=== PATIENT | female | born 1950 | race Caucasian/White ===

== ENCOUNTER 2019-08-20 11:21 | Outpatient (CLI) | payer MEDICARE, OTHER, SELFPAY ==
[2019-08-20 12:00] LABS: Basophils % 0.6 %; Eosinophils # 0.1 10^3/uL (0.0-0.8); Eosinophils % 1.9 %; Hematocrit 39.8 % (37.0-47.0); Lymphocytes # 1.8 10^3/uL (0.8-4.8); Lymphocytes % 28.3 %; Mean Corpuscular HGB Conc 32.7 g/dL (30.0-36.0); Mean Corpuscular Hemoglobin 31.9 pg (28.0-34.0); Mean Corpuscular Volume 97.5 fL (81-99); Mean Platelet Volume 10.3 fL (7.4-10.4); Monocytes # 0.6 10^3/uL (0.2-0.9); Neutrophils # 3.8 10^3/uL (1.8-7.7); Nucleated Red Blood Cells % 0 %; Platelet Count 129 10^3/cmm (130-400); Red Blood Count 4.08 10^6/uL (4.1-5.3); Red Cell Distribution Width 13.7 % (12.1-15.1); White Blood Count 6.4 10^3/uL (4.0-10.0)
[2019-08-20 12:19] LABS: Alanine Aminotransferase 55 U/L (0-33); Albumin Level 3.8 g/dL (3.5-5.2); Alkaline Phosphatase 126 IU/L (35-105); Anion Gap 16.3 (5-19); Aspartate Amino Transferase 71 U/L (0-32); Blood Urea Nitrogen 13 mg/dL (8-23); Calcium 9.7 mg/dL (8.5-10.5); Carbon Dioxide 26 mmol/L (22-29); Chloride 99 mmol/L (98-107); Glucose 90 mg/dL (65-115); Osmolality Calculated 282 mOsm/kg (285-295); Potassium 3.3 mmol/L (3.5-5.1); Sodium 138 mmol/L (136-145); Total Bilirubin 0.5 mg/dL (0.15-1.2); Total Protein 7.8 g/dL (6.6-8.7)
--- NOTE | 2019-08-24 09:53 | ONC FU_ITS ---
Dr. Correia Patient Follow-Up Note Patient: Erin Dickens Unit #: [id number]: [id number] Dicatated By: Yong Correia M.D.Date of Visit:Aug 20, 2019 Onc Med Follow-up/Prog Note Chief Complaint: Breast cancer. History of Present Illness: This is a 69 year-old woman with grade 3 invasive ductal carcinoma of the left breast, stage IIA (T1c, pN1c, M0), ER negative, weakly ID positive, and HER-2/edward negative. She had presented with a lump in the left breast. Mammogram and ultrasound were done and showed a suspicious lesion in the upper outer quadrant. She was then referred to Dr. Weathers. She underwent left breast lumpectomy on 09/08/2015. Pathology showed grade 3 invasive ductal carcinoma with extensive intraductal component, high grade. The tumor measured 1.6 cm in greatest dimension. There was invasive carcinoma within 1-2 mm of the inked margin and in situ carcinoma within 0.5 mm of the inked margin. The tumor was ER negative at less than 1% and weakly ID positive at 5%. It was negative for overexpression of HER-2/edward, 0 by IHC with amplification ratio 1.3 by FISH, with 3.7 HER-2 copies per cell. The Ki-67 was unfavorable at 44%. She underwent left modified radical mastectomy on 09/25/2015. Pathology on the mastectomy showed extensive biopsy site changes, but no residual in situ or invasive malignancy. There was metastatic involvement in 3 of 18 axillary lymph nodes. She has had an uneventful postop recovery. I had seen her initially on 10/16/2015, and I did recommend adjuvant chemotherapy with dose dense Adriamycin/cyclophosphamide followed by weekly Taxol. She began her first cycle of adriamycin/Cytoxan with Neulasta support on 10-22-2015. She completed 4 cycles as of 12/03/2015. That portion of her treatment was complicated by neutropenia, but with uneventful recovery. She also experienced some increase in her serum creatinine. At the time of her 4th cycle, it had increased to 1.3 mg/dL compared to baseline of 0.8 mg/dL. As of 12/17/2015 it had increased to 1.7 mg/dL, and despite additional IV hydration, by 12/24/2015 it had increased to 2.4 mg/d. However, with further IV hydration, her renal function did show improvement, and she then began weekly paclitaxel on 12/31/2015. As of 02/15/2016, she had completed her 6th weekly paclitaxel infusion. Following that treatment, her chemotherapy was put on hold due to multiple toxicities, including nausea, diarrhea and neuropathy. She was then followed on observation/expectant management. Her other medical illnesses include hypertension, hyperlipidemia, and type II diabetes. She has some associated neuropathy. She is known to have a heart murmur, but no other heart disease. She is a non-smoker. INTERIM HISTORY: On her follow-up visit in May 2016 her liver enzymes had increased significantly. Staging CT scans of the chest, abdomen, and pelvis on 05/31/2016 showed no evidence of metastatic disease. She continued on observation/expectant management. At her follow-up visit in August 2018 she had developed stigmata of liver cirrhosis and a repeat CT abdomen/pelvis at that time that showed mild hepatosplenomegaly with diffuse fatty infiltration of the liver and with a slightly cirrhotic contour of the liver, which appeared new since 2016. With those findings, she was referred to a administration clerk, Dr. Jovon Hinson in [place]. She continued observation/expectant management for the breast cancer. She is seen for a follow-up visit. She has been feeling okay. Her energy level is somewhat variable. She is able to do light work. ECOG score is 1. She says that for a long time she had no appetite, and her weight dropped 15 pounds. For the past week or so it has been better, though. She does not have fever, night sweats, or hot flashes. She has some allergy related sinus drainage and cough. She has no shortness of breath or chest pain. She clearly has no GI complaints. She sometimes has difficulty voiding. She reports having bone pain in her arms and the legs. She also still has some numbness in her legs. Medications: Aleve 1 (220 mg) Capsule Oral PRN, AmLODIPine Besylate 1 Tablet (of 10 mg) Oral daily, Aspirin 1 Tablet (of 81 mg) Tablet, chewable Oral daily, Calcium 1 Tablet (of 600 mg) Oral b.i.d., Cholecalciferol 1 Tablet (of 58352 Units) Oral q 1 week, Januvia 1 (50 mg) Tablet Oral daily, Klor-Con M20 1 Tablet (of 20 mg) Tablet, controlled release Oral b.i.d., Omeprazole 1 Tablet (of 20 meq) Capsule Delayed Release Oral daily PRN, Singulair 1 Tablet (of 10 mg) Oral daily, Triamterene-HCTZ 1 Tablet (of 37.5-25 mg) Oral daily Allergies: No Known Allergies. Review of Systems: Constitutional - She is generally feeling okay. Her energy comes and goes. She is doing some light house work and babysitting [employer]. Her appetite has improved, it was very poor. Her weight is down 15 pounds from her last visit. No fever, night sweats, or hot flashes. ECOG score is 1, ENMT - She has seasonal allergies. No mouth sores. No sore throat or difficulty swallowing, Hematologic/Lymphatic - She bruises easily, Respiratory - No shortness of breath. She has an occasional cough related to post nasal drainage. No pleuritic pain or hemoptysis, Cardiovascular - No angina pain. No palpitations, Gastrointestinal - No nausea or vomiting. No heartburn or acid reflux. No diarrhea or constipation. No blood in the stool or black stools, Genitourinary (F) - No dysuria or hematuria. No urinary frequency. No urgency or incontinence, Musculoskeletal - She is having bone pain in her legs and arms, Integumentary - No skin complications,, Neurologic - No headache or dizziness. She has numbness in her legs. No tingling. No other focal neurologic symptoms, Psychiatric - No anxiety or depression. She has some difficult sleeping. . Vital Signs: Performed on Aug 20, 2019 12:59 Height - 58.00 in Weight - 124.4 lbs (LOW) BSA - 1.49 sq.m BMI - 26.00 Temperature - 98.6 F Pulse - 66 /min Respiration - 18 /min BP - 120/57 mm(hg) O2 Sat - 98 % Pain - 0 Physical Examination: Constitutional - She looks pretty good generally, Eyes - Sclerae nonicteric. Conjunctivae clear, ENMT - No lesions noted in the oral cavity, Hematologic/Lymphatic - No cervical or clavicular adenopathy, Respiratory - Lungs are clear, Cardiovascular - Heart rhythm is regular. There is a II/ systolic murmur. There is no gallop or rub noted, Breasts - There is tenderness in the right breast. Multiple tiny nodules are palpable, but these do not appear clinically significant. The left chest wall shows no lesions. There is no axillary adenopathy, Abdomen - Soft. Liver is enlarged. The spleen tip is palpable on inspiration just below the costal margin. There is no abdominal mass or ascites noted and there is no inguinal adenopathy, Extremities - No edema. Pedal pulses are palpable bilaterally, Integumentary - There are scattered spider angiomas on the upper chest wall. There is a small actinic lesion on her nose. There is a focal area of discoloration on the posterior aspect of the right leg, Neurologic - No focal neurologic deficits noted. Lab/Imaging: Test performed on Aug 20, 2019 11:35 Sodium 138 mmol/L Potassium 3.3 mmol/L Chloride 99 mmol/L CO2 26 mmol/L Anion Gap 16.3 BUN 13 mg/dL Creatinine 0.9 mg/dL Cr Clearance (Est) 51.07 mL/min Glucose 90 mg/dL Calcium 9.7 mg/dL Protein, Total 7.8 g/dL Albumin 3.8 g/dL Globulin 4.0 g/dL Bilirubin, Total 0.5 mg/dL ALT (SGPT) 55 U/L AST (SGOT) 71 U/L Alkaline Phosphatase 126 IU/L WBC 6.4 10 3/uL RBC 4.08 10 6/uL HGB 13.0 g/dL HCT 39.8 % MCV 97.5 fL MCH 31.9 pg MCHC 32.7 g/dL RDW 13.7 % Platelet Count 129 10 3/cmm MPV 10.3 fL Neutrophils 3.8 10 3/uL Lymphocytes 1.8 10 3/uL Monocytes 0.6 10 3/uL Eosinophils 0.1 10 3/uL Basophils 0.0 10 3/uL Neutrophil % 59.0 % Lymphocyte % 28.3 % Monocyte % 10.0 % Eosinophil % 1.9 % Basophils % 0.6 % NRBC % 0 % Impression: 1. Patient with grade 3 invasive ductal carcinoma of the left breast, stage IIA (pT1c, pN1c, M0), ER negative, weakly ID positive, and HER-2/edward negative. 2. She initially underwent left breast lumpectomy followed by left modified radical mastectomy on 09/25/2015. Her other medical illnesses include: 3. Hypertension. 4. Hyperlipidemia. 5. Type II diabetes with neuropathy. 6. GERD. 7. She has a history of mild asthma. 8. She is known to have a heart murmur. She was given adjuvant chemotherapy with Adriamycin/cyclophosphamide followed by paclitaxel. She completed 4 cycles of Adriamycin/cyclophosphamide from 10/22/2015 through 12/03/2015. The paclitaxel portion of her chemotherapy was delayed due to a decline in renal function, but that subsequently did improve. She was able to complete 6 weekly infusions of paclitaxel from 12/31/2015 through 02/15/2016. Her treatment was stopped at that point due to multiple toxicities including nausea, diarrhea, and neuropathy. On her follow-up visit in May 2016, there was a significant increase in her liver enzymes. Her restaging CT scans of the chest, abdomen, and pelvis showed no evidence of metastatic disease. She was then followed on observation/expectant management. During subsequent follow-up her liver enzymes had remained mildly elevated. At her follow-up visit in August 2018 she appeared to have developed stigmata of liver cirrhosis. A subsequent CT abdomen/pelvis showed evidence of mild hepatosplenomegaly with diffuse fatty infiltration of the liver and a slightly cirrhotic contour to the liver, which appear new from the prior study in 2017. With those findings, I was referred to a team assembly line machine operator, Dr. Jovon Hinson in [place]. Since then she has continued to have somewhat marginal performance status. She also has continued to have neuropathy in her lower extremities. There is been no evidence, though, of recurrence of the breast cancer. Plan: She remains on observation/expectant management for the breast cancer. I will see her again in 6 months. Signed By: Yong Correia M.D. <<Signature on File>>
== END 2019-08-20 11:22 | disposition home or self-care (01) ==
LOC: ONCMED 11:28
PROVIDERS: PCP Student in an Organized Health Care Education/Training Program; Visit Provider Internal Medicine Medical Oncology
DX: Z08 Encounter for follow-up examination after completed treatment for malignant neoplasm (principal); Z85.3 Personal history of malignant neoplasm of breast; I10 Essential (primary) hypertension; E78.5 Hyperlipidemia, unspecified; E11.42 Type 2 diabetes mellitus with diabetic polyneuropathy; K21.9 Gastro-esophageal reflux disease without esophagitis; J45.909 Unspecified asthma, uncomplicated; R01.1 Cardiac murmur, unspecified; Z90.12 Acquired absence of left breast and nipple; Z92.21 Personal history of antineoplastic chemotherapy; Z79.899 Other long term (current) drug therapy
CPT/HCPCS: 80053; 85025; G0463

== ENCOUNTER 2020-02-19 11:48 | Outpatient (CLI) | payer MEDICARE, OTHER, SELFPAY ==
[2020-02-19 12:18] LABS: Basophils % 0.7 %; Eosinophils # 0.1 10^3/uL (0.0-0.8); Eosinophils % 1.8 %; Hematocrit 39.5 % (37.0-47.0); Hemoglobin 13.5 g/dL (11.5-15.3); Lymphocytes # 1.8 10^3/uL (0.8-4.8); Lymphocytes % 30.1 %; Mean Corpuscular HGB Conc 34.2 g/dL (30.0-36.0); Mean Corpuscular Volume 90.6 fL (81-99); Mean Platelet Volume 10.2 fL (7.4-10.4); Monocytes # 0.7 10^3/uL (0.2-0.9); Monocytes % 10.7 %; Neutrophils # 3.42 10^3/uL (1.8-7.7); Neutrophils % 56.5 %; Nucleated Red Blood Cells % 0 %; Platelet Count 134 10^3/cmm (130-400); Red Blood Count 4.36 10^6/uL (4.1-5.3); Red Cell Distribution Width 13.5 % (12.1-15.1); White Blood Count 6.1 10^3/uL (4.0-10.0)
[2020-02-19 12:48] LABS: Alanine Aminotransferase 42 U/L (0-33); Alkaline Phosphatase 155 IU/L (35-105); Anion Gap 14.4 (5-19); Aspartate Amino Transferase 55 U/L (0-32); Blood Urea Nitrogen 13 mg/dL (8-23); Carbon Dioxide 23 mmol/L (22-29); Chloride 104 mmol/L (98-107); Globulin 3.5 g/dL (1.3-4.6); Glucose 112 mg/dL (65-115); Osmolality Calculated 287 mOsm/kg (285-295); Potassium 3.4 mmol/L (3.5-5.1); Sodium 138 mmol/L (136-145); Total Bilirubin 0.5 mg/dL (0.15-1.2); Total Protein 7.5 g/dL (6.6-8.7)
--- NOTE | 2020-02-22 13:13 | ONC FU_ITS ---
Dr. Correia Patient Follow-Up Note Patient: Erin Dickens Unit #: [id number]: [id number] Dicatated By: Yong Correia M.D.Date of Visit:Feb 19, 2020 Onc Med Follow-up/Prog Note Chief Complaint: Breast cancer. History of Present Illness: This is a 69 year-old woman with grade 3 invasive ductal carcinoma of the left breast, stage IIA (T1c, pN1c, M0), ER negative, weakly WI positive, and HER-2/edward negative. She had presented with a lump in the left breast. Mammogram and ultrasound were done and showed a suspicious lesion in the upper outer quadrant. She was then referred to Dr. Weathers. She underwent left breast lumpectomy on 09/08/2015. Pathology showed grade 3 invasive ductal carcinoma with extensive intraductal component, high grade. The tumor measured 1.6 cm in greatest dimension. There was invasive carcinoma within 1-2 mm of the inked margin and in situ carcinoma within 0.5 mm of the inked margin. The tumor was ER negative at less than 1% and weakly WI positive at 5%. It was negative for overexpression of HER-2/edward, 0 by IHC with amplification ratio 1.3 by FISH, with 3.7 HER-2 copies per cell. The Ki-67 was unfavorable at 44%. She underwent left modified radical mastectomy on 09/25/2015. Pathology on the mastectomy showed extensive biopsy site changes, but no residual in situ or invasive malignancy. There was metastatic involvement in 3 of 18 axillary lymph nodes. She has had an uneventful postop recovery. I had seen her initially on 10/16/2015, and I did recommend adjuvant chemotherapy with dose dense Adriamycin/cyclophosphamide followed by weekly Taxol. She began her first cycle of adriamycin/Cytoxan with Neulasta support on 10-22-2015. She completed 4 cycles as of 12/03/2015. That portion of her treatment was complicated by neutropenia, but with uneventful recovery. She also experienced some increase in her serum creatinine. At the time of her 4th cycle, it had increased to 1.3 mg/dL compared to baseline of 0.8 mg/dL. As of 12/17/2015 it had increased to 1.7 mg/dL, and despite additional IV hydration, by 12/24/2015 it had increased to 2.4 mg/d. However, with further IV hydration, her renal function did show improvement, and she then began weekly paclitaxel on 12/31/2015. As of 02/15/2016, she had completed her 6th weekly paclitaxel infusion. Following that treatment, her chemotherapy was put on hold due to multiple toxicities, including nausea, diarrhea and neuropathy. She was then followed on observation/expectant management. Her other medical illnesses include hypertension, hyperlipidemia, and type II diabetes. She has some associated neuropathy. She is known to have a heart murmur, but no other heart disease. She is a non-smoker. INTERIM HISTORY: On her follow-up visit in May 2016 her liver enzymes had increased significantly. Staging CT scans of the chest, abdomen, and pelvis on 05/31/2016 showed no evidence of metastatic disease. She continued on observation/expectant management. At her follow-up visit in August 2018 she had developed stigmata of liver cirrhosis and a repeat CT abdomen/pelvis at that time that showed mild hepatosplenomegaly with diffuse fatty infiltration of the liver and with a slightly cirrhotic contour of the liver, which appeared new since 2016. With those findings, she was referred to a propeller tester, Dr. Jovon Hinson in [place]. She continued observation/expectant management for the breast cancer. She is seen for a follow-up visit. She says she feels tired most of the time and she does have limited activity. She is able to do light work. ECOG score is 1. Her appetite is somewhat variable, and her weight has fluctuated. Recently she has gained some. She does not have fever, night sweats, or hot flashes. She has had a lot of nosebleeds, mainly from the right nostril. She also has some bruising. She has occasional cough. She does not complain of shortness of breath or chest pain. Recently she has had some constipation. She has no other GI or complaints. She has no significant joint or bone pain. She continues to have numbness/tingling from her feet up to above her knees. Medications: Aleve 1 (220 mg) Capsule Oral PRN, Aspirin 1 Tablet (of 81 mg) Tablet, chewable Oral daily, Calcium 1 Tablet (of 600 mg) Oral b.i.d., Januvia 1 (50 mg) Tablet Oral daily, Klor-Con M20 1 Tablet (of 20 mg) Tablet, controlled release Oral daily, Singulair 1 Tablet (of 10 mg) Oral daily, Triamterene-HCTZ 1 Tablet (of 37.5-25 mg) Oral daily, Verapamil HCl 1 Tablet (of 120 mg) Oral daily Allergies: No Known Allergies. Review of Systems: Constitutional - She says she feels tired most of the time. She is able to do light work. Appetite is variable. Her weight has fluctuated, recently she has gained weight. No fever, night sweats, or hot flashes. ECOG score is 1, ENMT - No sinus congestion/drainage. She has had a lot of nosebleeds, mostly from the right nostril. No mouth sores. No sore throat or difficulty swallowing, Hematologic/Lymphatic - She has some bruising, Respiratory - No shortness of breath. She has occasional cough. No pleuritic pain or hemoptysis, Cardiovascular - No angina pain. No palpitations, Gastrointestinal - No nausea or vomiting. No heartburn or acid reflux. Recently she has had constipation. No blood in the stool or black stools, Genitourinary (F) - No dysuria or hematuria. No urinary frequency. No urgency or incontinence, Musculoskeletal - She has no significant joint or bone pain, Integumentary - , Neurologic - No headache or dizziness. She has numbness/tingling from her feet up to her knees. No other focal neurologic symptoms, Psychiatric - No anxiety or depression. No insomnia. Vital Signs: Performed on Feb 19, 2020 13:12 Height - 58.00 in Weight - 135.6 lbs (HIGH) BSA - 1.54 sq.m BMI - 28.34 Temperature - 99.1 F (HIGH) Pulse - 79 /min Respiration - 18 /min BP - 127/61 mm(hg) O2 Sat - 98 % Pain - 8 Physical Examination: Constitutional - She appears somewhat weak generally, Eyes - Sclerae nonicteric. Conjunctivae clear, ENMT - No lesions noted in the oral cavity, Hematologic/Lymphatic - No cervical or clavicular adenopathy, Respiratory - Lungs are clear, Cardiovascular - Heart rhythm is regular. There is a II/ systolic murmur. There is no gallop or rub noted, Breasts - The right breast shows no mass. The left chest wall shows no lesions. There is no axillary adenopathy, Abdomen - Soft. Liver is enlarged. The spleen tip is palpable on inspiration just below the costal margin. There is no abdominal mass or ascites noted and there is no inguinal adenopathy, Extremities - No edema, Neurologic - No focal neurologic deficits noted. Lab/Imaging: Test performed on Feb 19, 2020 11:57 Sodium 138 mmol/L Potassium 3.4 mmol/L Chloride 104 mmol/L CO2 23 mmol/L Anion Gap 14.4 BUN 13 mg/dL Creatinine 1.0 mg/dL Cr Clearance (Est) 50.10 mL/min Glucose 112 mg/dL Osmolality - Calculated 287 mOsm/kg Calcium 9.0 mg/dL Protein, Total 7.5 g/dL Albumin 4.0 g/dL Globulin 3.5 g/dL Bilirubin, Total 0.5 mg/dL ALT (SGPT) 42 U/L AST (SGOT) 55 U/L Alkaline Phosphatase 155 IU/L WBC 6.1 10 3/uL RBC 4.36 10 6/uL HGB 13.5 g/dL HCT 39.5 % MCV 90.6 fL MCH 31.0 pg MCHC 34.2 g/dL RDW 13.5 % Platelet Count 134 10 3/cmm MPV 10.2 fL Neutrophils 3.42 10 3/uL Lymphocytes 1.8 10 3/uL Monocytes 0.7 10 3/uL Eosinophils 0.1 10 3/uL Basophils 0.0 10 3/uL Neutrophil % 56.5 % Lymphocyte % 30.1 % Monocyte % 10.7 % Eosinophil % 1.8 % Basophils % 0.7 % NRBC % 0 % Impression: 1. Patient with grade 3 invasive ductal carcinoma of the left breast, stage IIA (pT1c, pN1c, M0), ER negative, weakly WI positive, and HER-2/edward negative. 2. She initially underwent left breast lumpectomy followed by left modified radical mastectomy on 09/25/2015. Her other medical illnesses include: 3. Hypertension. 4. Hyperlipidemia. 5. Type II diabetes with neuropathy. 6. GERD. 7. She has a history of mild asthma. 8. She is known to have a heart murmur. She was given adjuvant chemotherapy with Adriamycin/cyclophosphamide followed by paclitaxel. She completed 4 cycles of Adriamycin/cyclophosphamide from 10/22/2015 through 12/03/2015. The paclitaxel portion of her chemotherapy was delayed due to a decline in renal function, but that subsequently did improve. She was able to complete 6 weekly infusions of paclitaxel from 12/31/2015 through 02/15/2016. Her treatment was stopped at that point due to multiple toxicities including nausea, diarrhea, and neuropathy. On her follow-up visit in May 2016, there was a significant increase in her liver enzymes. Her restaging CT scans of the chest, abdomen, and pelvis showed no evidence of metastatic disease. She was then followed on observation/expectant management. During subsequent follow-up her liver enzymes had remained mildly elevated. At her follow-up visit in August 2018 she appeared to have developed stigmata of liver cirrhosis. A subsequent CT abdomen/pelvis showed evidence of mild hepatosplenomegaly with diffuse fatty infiltration of the liver and a slightly cirrhotic contour to the liver, which appear new from the prior study in 2016. With those findings, I was referred to a tile presser, Dr. Jovon Hinson in [place]. During followup she has had persistent neuropathy in her lower extremities, and she has had some mild limited activity tolerance. However, thus far there has been no evidence of recurrence of the breast cancer. Plan: She remains on observation/expectant management for the breast cancer. I will see her again in 6 months. Signed By: Yong Correia M.D. <<Signature on File>>
== END 2020-02-19 11:49 | disposition home or self-care (01) ==
PROVIDERS: PCP Student in an Organized Health Care Education/Training Program; Visit Provider Internal Medicine Medical Oncology
DX: Z08 Encounter for follow-up examination after completed treatment for malignant neoplasm (principal); Z85.3 Personal history of malignant neoplasm of breast; Z90.12 Acquired absence of left breast and nipple; I10 Essential (primary) hypertension; E78.5 Hyperlipidemia, unspecified; E11.42 Type 2 diabetes mellitus with diabetic polyneuropathy; K21.9 Gastro-esophageal reflux disease without esophagitis; J45.909 Unspecified asthma, uncomplicated; R01.1 Cardiac murmur, unspecified
CPT/HCPCS: 80053; 85025; G0463

== ENCOUNTER 2020-08-19 11:35 | Outpatient (CLI) | payer MEDICARE, OTHER, SELFPAY ==
[2020-08-19 12:17] LABS: Basophils % 0.5 %; Eosinophils # 0.1 10^3/uL (0.0-0.8); Eosinophils % 1.4 %; Hematocrit 39.2 % (37.0-47.0); Hemoglobin 13.3 g/dL (11.5-15.3); Lymphocytes # 1.5 10^3/uL (0.8-4.8); Lymphocytes % 23.2 %; Mean Corpuscular HGB Conc 33.9 g/dL (30.0-36.0); Mean Corpuscular Hemoglobin 31.5 pg (28.0-34.0); Mean Corpuscular Volume 92.9 fL (81-99); Monocytes # 0.7 10^3/uL (0.2-0.9); Monocytes % 11.2 %; Neutrophils # 4.02 10^3/uL (1.8-7.7); Neutrophils % 63.4 %; Nucleated Red Blood Cells % 0 %; Platelet Count 125 10^3/cmm (130-400); Red Blood Count 4.22 10^6/uL (4.1-5.3); Red Cell Distribution Width 14.2 % (12.1-15.1); White Blood Count 6.3 10^3/uL (4.0-10.0)
[2020-08-19 12:41] LABS: Alanine Aminotransferase 52 U/L (0-33); Alkaline Phosphatase 160 IU/L (35-105); Anion Gap 17.1 (5-19); Aspartate Amino Transferase 74 U/L (0-32); Blood Urea Nitrogen 17 mg/dL (8-23); Calcium 8.9 mg/dL (8.5-10.5); Carbon Dioxide 22 mmol/L (22-29); Chloride 104 mmol/L (98-107); Glucose 110 mg/dL (65-115); Osmolality Calculated 292 mOsm/kg (285-295); Potassium 3.1 mmol/L (3.5-5.1); Sodium 140 mmol/L (136-145); Total Bilirubin 0.6 mg/dL (0.15-1.2)
--- NOTE | 2020-08-21 17:36 | ONC FU_ITS ---
Dr. Correia Patient Follow-Up Note Patient: Erin Dickens Unit #: [id number]: [id number] Dicatated By: Yong Croreia M.D.Date of Visit:Aug 19, 2020 Onc Med Follow-up/Prog Note Chief Complaint: Breast cancer. History of Present Illness: This is a 70 year-old woman with grade 3 invasive ductal carcinoma of the left breast, stage IIA (T1c, pN1c, M0), ER negative, weakly NV positive, and HER-2/edward negative. She had presented with a lump in the left breast. Mammogram and ultrasound were done and showed a suspicious lesion in the upper outer quadrant. She was then referred to Dr. Weathers. She underwent left breast lumpectomy on 09/08/2015. Pathology showed grade 3 invasive ductal carcinoma with extensive intraductal component, high grade. The tumor measured 1.6 cm in greatest dimension. There was invasive carcinoma within 1-2 mm of the inked margin and in situ carcinoma within 0.5 mm of the inked margin. The tumor was ER negative at less than 1% and weakly NV positive at 5%. It was negative for overexpression of HER-2/edward, 0 by IHC with amplification ratio 1.3 by FISH, with 3.7 HER-2 copies per cell. The Ki-67 was unfavorable at 44%. She underwent left modified radical mastectomy on 09/25/2015. Pathology on the mastectomy showed extensive biopsy site changes, but no residual in situ or invasive malignancy. There was metastatic involvement in 3 of 18 axillary lymph nodes. She has had an uneventful postop recovery. I had seen her initially on 10/16/2015, and I did recommend adjuvant chemotherapy with dose dense Adriamycin/cyclophosphamide followed by weekly Taxol. She began cycle 1 of adriamycin/Cytoxan with Neulasta support on 10-22-2015. She completed 4 cycles as of 12/03/2015. That portion of her treatment was complicated by neutropenia, but with uneventful recovery. She also experienced some increase in her serum creatinine. At the time of her 4th cycle, it had increased to 1.3 mg/dL compared to baseline of 0.8 mg/dL. As of 12/17/2015 it had increased to 1.7 mg/dL, and despite additional IV hydration, by 12/24/2015 it had increased to 2.4 mg/d. However, with further IV hydration, her renal function did show improvement, and she then began weekly paclitaxel on 12/31/2015. As of 02/15/2016, she had completed her 6th weekly paclitaxel infusion. Following that treatment, her chemotherapy was put on hold due to multiple toxicities, including nausea, diarrhea and neuropathy. She was then followed expectantly. On her follow-up visit in May 2016 her liver enzymes had increased significantly. Staging CT scans of the chest, abdomen, and pelvis on 05/31/2016 showed no evidence of metastatic disease. She continued on observation/expectant management. At her follow-up visit in August 2018 she had developed stigmata of liver cirrhosis and a repeat CT abdomen/pelvis at that time that showed mild hepatosplenomegaly with diffuse fatty infiltration of the liver and with a slightly cirrhotic contour of the liver, which appeared new since 2017. With those findings, she was referred to a seasonal sales associate, Dr. Jovon Hinson in [place]. She continued observation/expectant management for the breast cancer. Her other medical illnesses include hypertension, hyperlipidemia, and type II diabetes. She has some associated neuropathy. She is known to have a heart murmur, but she has had no other heart disease. She is a non-smoker. INTERIM HISTORY: She is seen for a follow-up visit. He complains that he is tired all the time and she has limited activity. She is able to do housework, but it is increasingly difficult for her to get it done. ECOG score is 1. She has good appetite. She has no fever, night sweats, or hot flashes. She has a little bit of sinus drainage she does have some cough, attributable to allergies. She says her breathing has been pretty good. She does not complain of chest pain. She has no GI complaints other than some constipation, which she is managing with brand. She has no complaints. She has been having a lot of joint and muscle pain. Her legs, in particular, hurt when she is walking, to the point that she cannot go. She says she falls a lot. She does not complain of headache. She still has numbness/tingling in her hands and feet. Medications: Aleve 1 (220 mg) Capsule Oral PRN, Aspirin 1 Tablet (of 81 mg) Tablet, chewable Oral daily, Calcium 1 Tablet (of 600 mg) Oral b.i.d., Januvia 1 (50 mg) Tablet Oral daily, Klor-Con M20 1 Tablet (of 40 mg) Tablet, controlled release Oral b.i.d., Singulair 1 Tablet (of 10 mg) Oral daily, Triamterene-HCTZ 1 Tablet (of 37.5-25 mg) Oral daily, Verapamil HCl 1 Tablet (of 120 mg) Oral daily Allergies: No Known Allergies. Vital Signs: Performed on Aug 19, 2020 13:23 Height - 58.00 in Weight - 142.4 lbs (HIGH) BSA - 1.58 sq.m BMI - 29.76 Temperature - 97.2 F (LOW) Pulse - 74 /min Respiration - 18 /min BP - 134/64 mm(hg) O2 Sat - 96 % Pain - 0 Physical Examination: Constitutional - She appears somewhat weak generally, Eyes - Sclerae nonicteric. Conjunctivae clear, ENMT - No lesions noted in the oral cavity, Hematologic/Lymphatic - No cervical, clavicular, or axillary adenopathy, Respiratory - Lungs are clear, Cardiovascular - Heart rhythm is regular. There is a II/ systolic murmur. There is no gallop or rub noted, Abdomen - Soft. Liver is enlarged. The spleen tip is palpable on inspiration just below the costal margin. There is no abdominal mass or ascites noted and there is no inguinal adenopathy, Extremities - No edema. She has good pedal pulses, Neurologic - No focal neurologic deficits noted. Lab/Imaging: Test performed on Aug 19, 2020 11:57 Sodium 140 mmol/L Potassium 3.1 mmol/L Chloride 104 mmol/L CO2 22 mmol/L Anion Gap 17.1 BUN 17 mg/dL Creatinine 0.9 mg/dL Cr Clearance (Est) 57.62 mL/min Glucose 110 mg/dL Osmolality - Calculated 292 mOsm/kg Calcium 8.9 mg/dL Protein, Total 8.0 g/dL Albumin 4.0 g/dL Globulin 4.0 g/dL Bilirubin, Total 0.6 mg/dL ALT (SGPT) 52 U/L AST (SGOT) 74 U/L Alkaline Phosphatase 160 IU/L WBC 6.3 10 3/uL RBC 4.22 10 6/uL HGB 13.3 g/dL HCT 39.2 % MCV 92.9 fL MCH 31.5 pg MCHC 33.9 g/dL RDW 14.2 % Platelet Count 125 10 3/cmm MPV 10.0 fL Neutrophils 4.02 10 3/uL Lymphocytes 1.5 10 3/uL Monocytes 0.7 10 3/uL Eosinophils 0.1 10 3/uL Basophils 0.0 10 3/uL Neutrophil % 63.4 % Lymphocyte % 23.2 % Monocyte % 11.2 % Eosinophil % 1.4 % Basophils % 0.5 % NRBC % 0 % Problem List: 1. Grade 3 invasive ductal carcinoma of the left breast, stage IIA (pT1c, pN1c, M0), ER negative, weakly NV positive, and HER-2/edward negative. 2. Hypertension. 3. Hyperlipidemia. 4. Type II diabetes with neuropathy. 5. GERD. 6. She has a history of mild asthma. 7. She is known to have a heart murmur. 8. Cirrhosis of the liver, presumably due to steatohepatitis. Problems Addressed with this Encounter and Plan: 1. Patient with grade 3 invasive ductal carcinoma of the left breast, stage IIA (pT1c, pN1c, M0), ER negative, weakly NV positive, and HER-2/edward negative. She initially underwent left breast lumpectomy followed by left modified radical mastectomy on 09/25/2015. She was given adjuvant chemotherapy with 4 cycles of Adriamycin/cyclophosphamide followed by weekly paclitaxel. The paclitaxel portion of her chemotherapy was delayed due to a decline in renal function, but that subsequently did improve. She was able to complete 6 weekly infusions of paclitaxel from 12/31/2015 through 02/15/2016. Her treatment was stopped at that point due to multiple toxicities including nausea, diarrhea, and neuropathy. She was then followed expectantly. During followup she has had persistent neuropathy in her lower extremities, and she has had some mild limited activity tolerance and somewhat marginal performance status. However, thus far there has been no evidence of recurrence of the breast cancer. She remains on observation/expectant management. I will see her again in 6 months. 2. On her follow-up visit in May 2016, there was a significant increase in her liver enzymes. Her restaging CT scans of the chest, abdomen, and pelvis showed no evidence of metastatic disease. She was then followed on observation/expectant management. During subsequent follow-up her liver enzymes had remained mildly elevated. At her follow-up visit in August 2018 she appeared to have developed stigmata of liver cirrhosis. A subsequent CT abdomen/pelvis showed evidence of mild hepatosplenomegaly with diffuse fatty infiltration of the liver and a slightly cirrhotic contour to the liver, which appear new from the prior study in 2016. With those findings, I was referred to a overnight houseperson, Dr. oJvon Hinson in [place]. 3. She has persistent hypokalemia. She will increase her potassium supplement to twice daily. Signed By: Yong Correia M.D. <<Signature on File>>
== END 2020-08-19 11:36 | disposition home or self-care (01) ==
LOC: ONCMED 11:40
PROVIDERS: PCP Student in an Organized Health Care Education/Training Program; Visit Provider Internal Medicine Medical Oncology
DX: Z08 Encounter for follow-up examination after completed treatment for malignant neoplasm (principal); Z85.3 Personal history of malignant neoplasm of breast; I10 Essential (primary) hypertension; E78.5 Hyperlipidemia, unspecified; E11.42 Type 2 diabetes mellitus with diabetic polyneuropathy; K21.9 Gastro-esophageal reflux disease without esophagitis; J45.20 Mild intermittent asthma, uncomplicated; R01.1 Cardiac murmur, unspecified; K74.60 Unspecified cirrhosis of liver; Z79.899 Other long term (current) drug therapy; Z92.21 Personal history of antineoplastic chemotherapy; Z90.12 Acquired absence of left breast and nipple
CPT/HCPCS: 36415; 80053; 85025; 99214

== ENCOUNTER 2021-02-22 12:04 | Outpatient (CLI) | payer MEDICARE, OTHER, SELFPAY ==
[2021-02-22 12:52] LABS: Basophils % 0.6 %; Eosinophils # 0.1 10^3/uL (0.0-0.8); Eosinophils % 1.2 %; Hematocrit 38.8 % (37.0-47.0); Hemoglobin 13.3 g/dL (11.5-15.3); Lymphocytes # 1.3 10^3/uL (0.8-4.8); Mean Corpuscular HGB Conc 34.3 g/dL (30.0-36.0); Mean Corpuscular Hemoglobin 31.7 pg (28.0-34.0); Mean Corpuscular Volume 92.4 fl (81-99); Mean Platelet Volume 10.4 fL (7.4-10.4); Monocytes # 0.7 10^3/uL (0.2-0.9); Monocytes % 10.2 %; Neutrophils # 4.58 10^3/uL (1.8-7.7); Neutrophils % 68.6 %; Nucleated Red Blood Cells % 0 %; Platelet Count 142 10^3/cmm (130-400); Red Cell Distribution Width 13.2 % (12.1-15.1); White Blood Count 6.7 10^3/uL (4.0-10.0)
[2021-02-22 13:07] LABS: Alanine Aminotransferase 37 U/L (0-33); Albumin Level 3.8 g/dL (3.5-5.2); Alkaline Phosphatase 141 IU/L (35-105); Anion Gap 18.2 (5-19); Aspartate Amino Transferase 63 U/L (0-32); Blood Urea Nitrogen 16 mg/dL (8-23); Calcium 8.6 mg/dL (8.5-10.5); Carbon Dioxide 20 mmol/L (22-29); Chloride 102 mmol/L (98-107); Globulin 3.2 g/dL (1.3-4.6); Glucose 111 mg/dL (65-115); Osmolality Calculated 286 mOsm/kg (285-295); Potassium 3.2 mmol/L (3.5-5.1); Sodium 137 mmol/L (136-145); Total Bilirubin 0.7 mg/dL (0.15-1.2)
--- NOTE | 2021-02-26 14:54 | ONC FU_ITS ---
Dr. Correia Patient Follow-Up Note Patient: Erin Dickens Unit #: [id number]: 1950 Dicatated By: Yong Correia M.D.Date of Visit:Feb 22, 2021 Onc Med Follow-up/Prog Note Chief Complaint: Breast cancer. History of Present Illness: This is a 70 year-old woman with grade 3 invasive ductal carcinoma of the left breast, stage IIA (T1c, pN1c, M0), ER negative, weakly NJ positive, and HER-2/edward negative. She had presented with a lump in the left breast. Mammogram and ultrasound were done and showed a suspicious lesion in the upper outer quadrant. She was then referred to Dr. Weathers. She underwent left breast lumpectomy on 09/08/2015. Pathology showed grade 3 invasive ductal carcinoma with extensive intraductal component, high grade. The tumor measured 1.6 cm in greatest dimension. There was invasive carcinoma within 1-2 mm of the inked margin and in situ carcinoma within 0.5 mm of the inked margin. The tumor was ER negative at less than 1% and weakly NJ positive at 5%. It was negative for overexpression of HER-2/edward, 0 by IHC with amplification ratio 1.3 by FISH, with 3.7 HER-2 copies per cell. The Ki-67 was unfavorable at 44%. She underwent left modified radical mastectomy on 09/25/2015. Pathology on the mastectomy showed extensive biopsy site changes, but no residual in situ or invasive malignancy. There was metastatic involvement in 3 of 18 axillary lymph nodes. She has had an uneventful postop recovery. I had seen her initially on 10/16/2015, and I did recommend adjuvant chemotherapy with dose dense Adriamycin/cyclophosphamide followed by weekly Taxol. She began cycle 1 of adriamycin/Cytoxan with Neulasta support on 10-22-2015. She completed 4 cycles as of 12/03/2015. That portion of her treatment was complicated by neutropenia, but with uneventful recovery. She also experienced some increase in her serum creatinine. At the time of her 4th cycle, it had increased to 1.3 mg/dL compared to baseline of 0.8 mg/dL. As of 12/17/2015 it had increased to 1.7 mg/dL, and despite additional IV hydration, by 12/24/2015 it had increased to 2.4 mg/d. However, with further IV hydration, her renal function did show improvement, and she then began weekly paclitaxel on 12/31/2015. As of 02/15/2016, she had completed her 6th weekly paclitaxel infusion. Following that treatment, her chemotherapy was put on hold due to multiple toxicities, including nausea, diarrhea and neuropathy. She was then followed expectantly. On her follow-up visit in May 2016 her liver enzymes had increased significantly. Staging CT scans of the chest, abdomen, and pelvis on 05/31/2016 showed no evidence of metastatic disease. She continued on observation/expectant management. At her follow-up visit in August 2018 she had developed stigmata of liver cirrhosis and a repeat CT abdomen/pelvis at that time that showed mild hepatosplenomegaly with diffuse fatty infiltration of the liver and with a slightly cirrhotic contour of the liver, which appeared new since 2017. With those findings, she was referred to a aluminum boats assembler, Dr. Jovon Hinson in [place]. She continued observation/expectant management for the breast cancer. Her other medical illnesses include hypertension, hyperlipidemia, and type II diabetes. She has some associated neuropathy. She is known to have a heart murmur, but she has had no other heart disease. She is a non-smoker. INTERIM HISTORY: She is seen for a follow-up visit. She has not been feeling good generally. She complains that she is tired all the time. She is up and around, but she hardly has any activity. She says she falls asleep as soon as she sits down, but she complains that she is not sleepy at bedtime. ECOG score is 2. Appetite is just so-so. She has not had fever. She occasionally has sweating. She has some sinus drainage. She does not complain of sore mouth or throat. She does not complain of cough. She does get out of breath with activity. She has not been having chest pain. She has no GI complaints other than her bowel function has not been too good. She has no complaints other than she is sometimes up and down a lot at night. She has pain in her right shoulder and arm. She did get an injection, but she says it did not help. She does not complain of headache. She occasionally has dizziness. She has numbness in her hands and feet, and she complains had her feet sometimes hurt pretty bad. Medications: Aleve 1 (220 mg) Capsule Oral PRN, Aspirin 1 Tablet (of 81 mg) Tablet, chewable Oral daily, Calcium 1 Tablet (of 600 mg) Oral b.i.d., Januvia 1 (50 mg) Tablet Oral daily, Klor-Con M20 1 Tablet (of 40 mg) Tablet, controlled release Oral b.i.d., Singulair 1 Tablet (of 10 mg) Oral daily, Triamterene-HCTZ 1 Tablet (of 37.5-25 mg) Oral daily, Verapamil HCl 1 Tablet (of 120 mg) Oral daily Allergies: No Known Allergies. Vital Signs: Performed on Feb 22, 2021 14:40 Height - 58.00 in Weight - 144.8 lbs (HIGH) BSA - 1.59 sq.m BMI - 30.26 (HIGH) Temperature - 98.8 F Pulse - 74 /min Respiration - 16 /min BP - 147/68 mm(hg) (HIGH) O2 Sat - 97 % Pain - 0 Fatigue - 10 Physical Examination: Constitutional - She appears somewhat weak generally, Eyes - Sclerae nonicteric. Conjunctivae clear, ENMT - No lesions noted in the oral cavity, Hematologic/Lymphatic - No cervical or clavicular adenopathy, Respiratory - Lungs are clear, Cardiovascular - Heart rhythm is regular. There is a II/ systolic murmur. There is no gallop or rub noted, Breasts - The right breast shows no mass. The left chest wall shows no lesions. There is no axillary adenopathy, Abdomen - Soft. Liver is enlarged. I am not able to palpate the spleen. There is no abdominal mass or ascites noted and there is no inguinal adenopathy, Extremities - No edema, Integumentary - There is patchy erythema in the facial area and there are telangiectasia on the upper chest wall, Neurologic - No focal neurologic deficits noted. Lab/Imaging: Test performed on Feb 22, 2021 12:35 Sodium 137 mmol/L Potassium 3.2 mmol/L Chloride 102 mmol/L CO2 20 mmol/L Anion Gap 18.2 BUN 16 mg/dL Creatinine 1.1 mg/dL Cr Clearance (Est) 47.93 mL/min Glucose 111 mg/dL Osmolality - Calculated 286 mOsm/kg Calcium 8.6 mg/dL Protein, Total 7.0 g/dL Albumin 3.8 g/dL Globulin 3.2 g/dL Bilirubin, Total 0.7 mg/dL ALT (SGPT) 37 U/L AST (SGOT) 63 U/L Alkaline Phosphatase 141 IU/L WBC 6.7 10 3/uL RBC 4.20 10 6/uL HGB 13.3 g/dL HCT 38.8 % MCV 92.4 fl MCH 31.7 pg MCHC 34.3 g/dL RDW 13.2 % Platelet Count 142 10 3/cmm MPV 10.4 fL Neutrophils 4.58 10 3/uL Lymphocytes 1.3 10 3/uL Monocytes 0.7 10 3/uL Eosinophils 0.1 10 3/uL Basophils 0.0 10 3/uL Neutrophil % 68.6 % Lymphocyte % 19.0 % Monocyte % 10.2 % Eosinophil % 1.2 % Basophils % 0.6 % NRBC % 0 % Problem List: 1. Grade 3 invasive ductal carcinoma of the left breast, stage IIA (pT1c, pN1c, M0), ER negative, weakly NJ positive, and HER-2/edward negative. 2. Hypertension. 3. Hyperlipidemia. 4. Type II diabetes with neuropathy. 5. GERD. 6. She has a history of mild asthma. 7. She is known to have a heart murmur. 8. Cirrhosis of the liver, presumably due to steatohepatitis. Problems Addressed with this Encounter and Plan: 1. Patient with grade 3 invasive ductal carcinoma of the left breast, stage IIA (pT1c, pN1c, M0), ER negative, weakly NJ positive, and HER-2/edward negative. She initially underwent left breast lumpectomy followed by left modified radical mastectomy on 09/25/2015. She was given adjuvant chemotherapy with 4 cycles of Adriamycin/cyclophosphamide followed by weekly paclitaxel. The paclitaxel portion of her chemotherapy was delayed due to a decline in renal function, but that subsequently did improve. She was able to complete 6 weekly infusions of paclitaxel from 12/31/2015 through 02/15/2016. Her treatment was stopped at that point due to multiple toxicities including nausea, diarrhea, and neuropathy. She was then followed expectantly. During followup she has had persistent neuropathy in her lower extremities, and she has had limited activity tolerance and somewhat marginal performance status. However, thus far there has been no evidence of recurrence of the breast cancer. Since her last visit she has had increased shortness of breath and further decline in her activity tolerance. As she is at risk for treatment related cardiomyopathy, I will schedule her for repeat echocardiogram. She will have further evaluation as indicated. I will otherwise just plan a follow-up visit in 1 year. 2. On her follow-up visit in May 2016, there was a significant increase in her liver enzymes. Her restaging CT scans of the chest, abdomen, and pelvis showed no evidence of metastatic disease. She was then followed on observation/expectant management. During subsequent follow-up her liver enzymes had remained mildly elevated. At her follow-up visit in August 2018 she appeared to have developed stigmata of liver cirrhosis. A subsequent CT abdomen/pelvis showed evidence of mild hepatosplenomegaly with diffuse fatty infiltration of the liver and a slightly cirrhotic contour to the liver, new from the prior study in 2016. She has since then been under the care of a aluminum boats assembler, Dr. Jovon Hinson in [place]. 3. She has persistent hypokalemia. She will continue her potassium supplement to twice daily. 4. She has a persistent skin eruption, and I will arrange for referral to a media relations manager. Signed By: Yong Correia M.D. <<Signature on File>>
== END 2021-02-22 12:05 | disposition home or self-care (01) ==
LOC: ONCMED 12:06
PROVIDERS: PCP Student in an Organized Health Care Education/Training Program; Visit Provider Internal Medicine Medical Oncology
DX: Z08 Encounter for follow-up examination after completed treatment for malignant neoplasm (principal); Z85.3 Personal history of malignant neoplasm of breast; Z90.12 Acquired absence of left breast and nipple; I10 Essential (primary) hypertension; E78.5 Hyperlipidemia, unspecified; E11.42 Type 2 diabetes mellitus with diabetic polyneuropathy; K21.9 Gastro-esophageal reflux disease without esophagitis; Z87.09 Personal history of other diseases of the respiratory system; R01.1 Cardiac murmur, unspecified; K74.60 Unspecified cirrhosis of liver; E87.6 Hypokalemia; R21 Rash and other nonspecific skin eruption; Z79.899 Other long term (current) drug therapy; Z92.21 Personal history of antineoplastic chemotherapy
CPT/HCPCS: 36415; 80053; 85025; 99214

== ENCOUNTER 2021-04-02 07:53 | Outpatient (CLI) | payer MEDICARE, OTHER, SELFPAY ==
--- NOTE | 2021-04-02 08:05 | USCV_ITS ---
Erin Dickens Age: 71 Gender: F : 1950 Exam Date: 04/02/2021 08:36 Ordering Phys: Yong Correia MD Technologist: LENA Exam Location: [facility] – [place] Indication: HEART MURMUR SHORTNESS OF BREATH BP: 147 / 68 HR: 76 Rhythm: Sinus Technical Quality: Technically difficult study MEASUREMENTS (Male / Female) Normal Values 2D ECHO LV Diastolic Diameter PLAX 3.6 cm 4.2 - 5.9 / 3.9 - 5.3 cm LV Systolic Diameter PLAX 2.5 cm IVS Diastolic Thickness 0.9 cm 0.6 - 1.0 / 0.6 - 0.9 cm IVS Systolic Thickness 1.3 cm LVPW Diastolic Thickness 0.9 cm 0.6 - 1.0 / 0.6 - 0.9 cm LVPW Systolic Thickness 1.1 cm RV Chamber Size 2.2 cm LVOT Diameter 2.0 cm LV Ejection Fraction 2D Teich 57.2 % LV Ejection Fraction MOD 2C 51.0 % LV Ejection Fraction 2C AL 50.5 % LA Diameter 2.9 cm LA Width 2.5 cm LA Height 3.6 cm RA Width 2.8 cm RA Height 4.1 cm Aorta at Sinotubular Diameter 2.1 cm M-MODE Aortic Annulus Diameter 2.3 cm LA Ao Ratio MM 1.3 MV E Point Septal Separation 1.7 cm DOPPLER AV Peak Velocity 119.0 cm/s LVOT Peak Velocity 88.0 cm/s AV Area Cont Eq vti 2.4 cm squared AV Area Cont Eq pk 2.3 cm squared MV Area PHT 3.4 cm squared Mitral E to A Ratio 0.7 MV E' Velocity 39.0 cm/s Mitral E to MV E' Ratio 10.0 Mitral E to LV E' Lateral Ratio 10.5 Mitral E to LV E' Septal Ratio 9.6 TV Peak E Velocity 55.7 cm/s Right Atrial Pressure 3.0 mmHg PV Peak Velocity 83.0 cm/s RV Acceleration Time 0.1 s RV Ejection Time 0.2 s RV AcT/ET 0.3 FINDINGS Left Ventricle Normal left ventricular size and systolic function, EF 57 %. No regional wall motion abnormalities. Right Ventricle The right ventricle is normal in size and function. Right Atrium The right atrium is normal in size. Left Atrium The left atrium is normal in size. Mitral Valve Trace mitral valve regurgitation. Aortic Valve Thickened aortic valve. Tricuspid Valve Not well visualized Pulmonic Valve Pulmonic valve not well visualized. Pericardium Normal pericardium without effusion. Aorta Normal ascending aorta dimension. CONCLUSIONS Normal left ventricular size and systolic function, EF 57 %. No regional wall motion abnormalities. Trace mitral valve regurgitation. Thickened aortic valve. There is no pericardial effusion. There are no intracardiac masses. No previous study is available for comparison. Technically difficult study because of the poor ultrasonic window. . Dr Rosita Gleason MD FAC (Electronically Signed) Final Date: 02 April 2021 18:45 S
== END 2021-04-02 07:54 | disposition home or self-care (01) ==
LOC: RAD 08:00
PROVIDERS: PCP Student in an Organized Health Care Education/Training Program; Visit Provider Internal Medicine Medical Oncology
DX: R01.1 Cardiac murmur, unspecified (principal); R06.02 Shortness of breath; I08.0 Rheumatic disorders of both mitral and aortic valves
CPT/HCPCS: 93306

== ENCOUNTER 2021-08-13 12:15 | Inpatient (IN) | payer MEDICARE, OTHER, SELFPAY ==
[2021-08-13] VITALS (21 sets, daily range): BP systolic 111–145; BP diastolic 58–71; PULSE 83–101; RESP 15–26; TEMP 36.6; O2SAT 96–99
--- NOTE | 2021-08-13 12:43 | PM.HP ---
Providers/Chief Complaint Admitting Physician: Bala Saldaña MD Primary Care Provider: Gustavo Benson Chief Complaint: Sepsus UTI History of Present Illness Erin Dickens is a 71 year old female who presented originally to [facility] with at least a week and a half of feeling weak. She had some chills, nausea, and even threw up today. She has had some dysuria. Low-grade fever has also been noted. She has not had any blood in her stool, black or tarry stools, hematemesis, chest discomfort, shortness of breath, or abdominal pain. She has been confused in the last several days. In the emergency department she received some IV antibiotics in the form of IV Rocephin significant amounts of IV fluids, magnesium, Lovenox. From my understanding there is concern that all of her blood culture bottles are already turning positive. This will need to be followed up on. Although patient denies it currently, there are notations that she was significantly short of breath on arrival and received Solu-Medrol as well. Prior to transfer she had a transient drop of her blood pressure to 80/48, which responded to IV fluids. Review of Systems General: Reports: 10 or more systems reviewed and unremarkable except in HPI and below Const: Reports: fever(s), chills and malaise Eyes: Denies: change in vision ENMT: Denies: throat pain Card: Denies: chest pain Resp: Denies: dyspnea GI: Reports: nausea and vomiting; Denies: abdominal pain, hematemesis, hematochezia or melena : Reports: dysuria Musc: Denies: neck pain Skin/Breast: Denies: rash Neuro: Reports: confusion Psych: Denies: anxiety or depression Endo: Denies: polyuria [place]ane/Lymph: Denies: easy bruising All/Imm: Denies: urticaria PFSH Acute PFSH: Medical History (Updated 08/13/21 @ 13:13 by Bala Saldaña MD) Asthma Breast cancer Cirrhosis GERD (gastroesophageal reflux disease) Hypertension Neuropathy Type 2 diabetes mellitus Surgical History (Updated 08/13/21 @ 12:48 by Bala Saldaña MD) History of appendectomy History of foot surgery History of left mastectomy Family History (Updated 08/13/21 @ 12:56 by Bala Saldaña MD) Other CAD (coronary artery disease) Social History (Updated 08/13/21 @ 12:58 by Bala Saldaña MD) Smoking and tobacco status: never smoked Alcohol intake: never Substance/Drug Use: never Physical Exam Narrative: General exam is a white female, able to answer questions but mildly confused. Denies any apparent pain currently. HEENT: Pupils equally round. Atraumatic normocephalic. Oropharynx clear. Neck is supple no lymphadenopathy megaly Cardiovascular regular rate and rhythm without murmur, no S3 or S4 Lungs clear no wheezing or crackles. Abdomen is soft nontender positive bowel sounds. Nontender. No obvious organomegaly. exams deferred Extremities no cyanosis clubbing or edema, cap refill brisk. Skin a few spider telangiectasia noted over chest Neuro: Mild confusion but no focal deficits. Data Other Labs: Right hip x-ray done at [facility] demonstrated no infiltrate. Chest x-ray demonstrated no infiltrate. Surgical clips noted left axilla. EKG demonstrated sinus rhythm, normal axis, nonspecific ST-T wave flattening. QTC on that EKG was 650. Lactic acid level 10.2 initially. INR 1.2. Repeat lactic acid 8.8. Urinalysis demonstrating too numerous to count white blood cells, rare red blood cells. Magnesium 1.2 ABG demonstrated pH of 7.44, PCO2 of 20, PO2 of 65 White blood cell count 13.7, hemoglobin 12.4, platelet count 63,000. BUN 23, creatinine 1.8, glucose 182, sodium 134, potassium 4.0, chloride 103, bicarb 12, calcium 8.7, LFTs with slight elevation of AST and ALT at 95 and 64 respectively. Alk phos elevated at 288. Bilirubin 2.2, slight elevation. Troponin undetectable D-dimer 3270 Urine ketones negative Anion gap approximately [address] per report in ER runner showed no calculi, hydronephrosis. Lipase was normal A&P Assessment and plan (1) Sepsis: Patient with evidence of sepsis, on arrival to outside emergency department. She received quite a bit of fluid resuscitation and does not need any further boluses currently. Sepsis was demonstrated by elevated white blood cell count, locus of infection which is urine, evidence of endorgan dysfunction including acute kidney injury as well as encephalopathy. Blood cultures at outside hospital growing E. coli, all bottles. Repeat blood cultures here ordered Status: Acute (2) UTI (urinary tract infection): Rocephin given at outside hospital. Will continue. I called and blood cultures are growing E Coli Repeat blood cultures here ordered Status: Acute (3) Acute kidney injury: No evidence of obstruction on CT scan Continue to follow renal function closely Status: Acute (4) Hypomagnesemia: Supplemented at [facility] Repeat tomorrow a.m. Status: Acute (5) Cirrhosis: Patient with history of cirrhosis, low platelet count. Protonix for GI prophylaxis Status: Acute (6) Hypertension: Hold medication for hypertension currently's as she was hypotensive at outside hospital Status: Acute (7) Type 2 diabetes mellitus: Mild sliding scale insulin No evidence of DKA was noted Status: Acute (8) Acute encephalopathy: Metabolic. Secondary to sepsis. Follow closely for improvement. Hold Neurontin in the interim. Status: Acute Plan Elevated dimer. Check venous duplex. Lovenox 30 mg subcu every 24 hours for DVT prophylaxis, being mindful of low platelets. If platelets drop significantly may need to reconsider. Denies shortness of breath, chest discomfort currently. Likely this is elevated secondary to sepsis. She is not requiring any oxygen. She is not tachycardic. Multiple other medical problems as outlined in past medical history Full code Lovenox for DVT prophylaxis Attestations Medical Necessity Statement*: Will need greater than 2 midnight stay for evaluation and treatment of sepsis with encephalopathy, found to be bacteremic with blood culture already growing in 4 out of 4 bottles. 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
--- NOTE | 2021-08-13 12:44 | ECG_ITS ---
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 Measurements Intervals [place] Rate: 84 P: 56 MI: 189 QRS: 11 QRSD: 85 T: 55 QT: 353 QTc: 418 Interpretive Statements SINUS RHYTHM LOW QRS VOLTAGE IN PRECORDIAL LEADS [QRS DEFLECTION < 1.0 mV IN CHEST LEADS] No previous ECG available for comparison Electronically Signed On 08-13-2021 22:37:46 CDT by Abhijit Kumar M.D. [id number]
--- NOTE | 2021-08-13 12:51 | USCV_ITS ---
Erin Dickens Age: 71 Gender: F : 1950 Exam Date: 08/13/2021 14:20 Ordering Phys: Bala Saldaña MD Technologist: LENA [place] [facility] [place]: Elevated dimer HISTORY: Lower extremity swelling. PROCEDURES: Venous duplex imaging was performed in bilateral lower extremities. The following venous structures were evaluated: common femoral vein, profunda vein, proximal portion of the greater saphenous vein, superficial femoral vein, and the popliteal vein. In addition, the posterior tibial and peroneal trunk were evaluated. FINDINGS: Normal 2-D Doppler and augmentation and compressibility throughout the lower extremity venous structures. Additional imaging through the proximal calf veins also reveals no thrombus. Limited evaluation of the greater saphenous vein is patent with no thrombus.. CONCLUSIONS No evidence of right lower extremity DVT. No evidence of left lower extremity DVT. Roland Cohen MD (Electronically Signed) Final Date: 13 August 2021 15:18 S
--- NOTE | 2021-08-13 13:00 | XRR_ITS ---
PROCEDURE INFORMATION: Exam: XR Left Foot Exam date and time: 08/13/2021 1:11 PM Age: 71 years old Clinical indication: Pain and injury or trauma; Fall; Sprain or strain; Left; Injury date: 2 weeks ago; Injury details: Fell 2 week ago pain and bruising to entrie foot; Patient HX: HX breast cancer; Additional info: Bruising pain TECHNIQUE: Imaging protocol: XR Left foot. Views: 1 or 2 views. COMPARISON: No relevant prior studies available. FINDINGS: Bones/joints: There is osteopenia and osteoarthritis seen. An oblique lucency traverses the midshaft 3rd digit proximal phalange suspicious for a nondisplaced hairline fracture. There is an apparent deformity present in the proximal aspect of the proximal phalange of the 5th digit which suggest a fracture of indeterminate age. A bone spurs present on the inferior calcaneus. Soft tissues: Normal. XR/XR foot LT 2V [id number] IMPRESSION: 1. Osteopenia and osteoarthritis. 2. Possible hairline fracture proximal phalange 3rd digit 3. Mild deformity proximal phalange 5th digit 4. Bone spur inferior calcaneus
[2021-08-13] MEDS: cefTRIAXone 1,000 MG in sodium chloride 0.9% (plus) 50 ML 100 MG IV (13:21)
[2021-08-13] MEDS: sodium chloride 0.9% 1,000 ML 75 ML IV (13:21)
--- NOTE | 2021-08-13 13:29 | PC.NURSE ---
Dr. Snider at bedside, gave v.o. to start Lovenox at 0500 08/14/21 instead of now
[2021-08-13 14:05] LABS: Hematocrit 35.7 % (37.0-47.0); Hemoglobin 11.7 g/dL (11.5-15.3); Mean Corpuscular HGB Conc 32.8 g/dL (30.0-36.0); Mean Corpuscular Hemoglobin 32.3 pg (28.0-34.0); Mean Corpuscular Volume 98.6 fl (81-99); Mean Platelet Volume 12.1 fL (7.4-10.4); Platelet Count 47 10^3/cmm (130-400); Red Blood Count 3.62 10^6/uL (4.1-5.3); Red Cell Distribution Width 14.8 % (12.1-15.1); White Blood Count 22.3 10^3/uL (4.0-10.0)
[2021-08-13 14:19] LABS: Alanine Aminotransferase 52 U/L (0-33); Alkaline Phosphatase 139 IU/L (35-105); Anion Gap 22.5 (5-19); Aspartate Amino Transferase 70 U/L (0-32); Blood Urea Nitrogen 24 mg/dL (8-23); Calcium 8.7 mg/dL (8.5-10.5); Carbon Dioxide 11 mmol/L (22-29); Chloride 104 mmol/L (98-107); Globulin 3.6 g/dL (1.3-4.6); Glucose 213 mg/dL (65-115); Magnesium 2.1 mg/dL (1.7-2.3); Osmolality Calculated 286 mOsm/kg (285-295); Potassium 4.5 mmol/L (3.5-5.1); Sodium 133 mmol/L (136-145); Total Bilirubin 0.9 mg/dL (0.15-1.2); Total Protein 6.6 g/dL (6.6-8.7)
[2021-08-13 15:10] LABS: Slide Review Slide Review Perform
[2021-08-13 15:11] LABS: Absolute Segmented Neutrophil 14.3 10/cmm (1.6-7.1); Band Neutrophils Absolute 5.6 10^3/cmm (0.0-1.2); Eosinophils 0 %; Lymphocytes 3 %; Lymphocytes Absolute 0.7 10^3/cmm (1.2-3.4); Monocytes Absolute 1.1 10^3/cmm (0.1-0.6); Segmented Neutrophils 64 %; Total Cells Counted 100 (0-100)
[2021-08-13 15:12] LABS: Absolute Neutrophil 19.8 10^3/cmm (1.4-6.5); Platelet Estimate Decreased (Normal)
[2021-08-13] MEDS: insulin lispro 100 unit/1 mL SUBCUT ×2 (17:28→20:38)
[2021-08-13] MEDS: montelukast sodium 10 mg Tablet PO (17:29)
[2021-08-13 17:39] LABS: Glucose Point of Care 230 mg/dL (70-110)
[2021-08-13 20:39] LABS: Glucose Point of Care 211 mg/dL (70-110)
[2021-08-14] VITALS (22 sets, daily range): BP systolic 120–148; BP diastolic 62–95; PULSE 69–91; RESP 12–28; TEMP 36.4–37.3; O2SAT 96–100
[2021-08-14] MEDS: acetaminophen 325 mg Tablet 650 MG PO (01:41)
[2021-08-14] MEDS: sodium chloride 0.9% 1,000 ML 75 ML IV ×2 (01:44→17:19)
[2021-08-14] MEDS: ipratropium-albuterol 3 mL Neb INHALATION (03:15)
[2021-08-14 04:58] LABS: Basophils # 0.2 10^3/uL (0.0-0.1); Basophils % 0.7 %; Hematocrit 35.9 % (37.0-47.0); Hemoglobin 11.8 g/dL (11.5-15.3); Lymphocytes # 1.2 10^3/uL (0.8-4.8); Lymphocytes % 5.4 %; Mean Corpuscular HGB Conc 32.9 g/dL (30.0-36.0); Mean Corpuscular Hemoglobin 31.5 pg (28.0-34.0); Mean Corpuscular Volume 95.7 fl (81-99); Mean Platelet Volume 11.9 fL (7.4-10.4); Monocytes # 2.7 10^3/uL (0.2-0.9); Monocytes % 11.9 %; Neutrophils # 15.75 10^3/uL (1.8-7.7); Neutrophils % 69.7 %; Nucleated Red Blood Cells % 0.1 %; Platelet Count 46 10^3/cmm (130-400); Red Blood Count 3.75 10^6/uL (4.1-5.3); Red Cell Distribution Width 14.7 % (12.1-15.1); White Blood Count 22.6 10^3/uL (4.0-10.0)
--- NOTE | 2021-08-14 05:11 | PC.NURSE ---
Hold Lovenox Dose Patient's platelet count known to be 47; 30 mg of lovenox ordered for 0500. Dr. Bell contacted for clarification; order received to hold dose. Medication not administered.
[2021-08-14 05:19] LABS: Alanine Aminotransferase 51 U/L (0-33); Albumin Level 3.1 g/dL (3.5-5.2); Alkaline Phosphatase 218 IU/L (35-105); Anion Gap 18.1 (5-19); Aspartate Amino Transferase 81 U/L (0-32); Blood Urea Nitrogen 29 mg/dL (8-23); Calcium 9.1 mg/dL (8.5-10.5); Carbon Dioxide 17 mmol/L (22-29); Chloride 107 mmol/L (98-107); Glucose 117 mg/dL (65-115); Magnesium 2.2 mg/dL (1.7-2.3); Osmolality Calculated 293 mOsm/kg (285-295); Potassium 4.1 mmol/L (3.5-5.1); Sodium 138 mmol/L (136-145); Total Bilirubin 0.6 mg/dL (0.15-1.2); Total Protein 7.1 g/dL (6.6-8.7)
[2021-08-14 05:35] LABS: Slide Review Slide Review Perform
[2021-08-14 07:29] LABS: Glucose Point of Care 135 mg/dL (70-110)
[2021-08-14] MEDS: aspirin 81 mg EC Tablet PO (08:00)
[2021-08-14] MEDS: pantoprazole DR 40 mg Tablet PO (08:00)
[2021-08-14 11:21] LABS: Glucose Point of Care 142 mg/dL (70-110)
[2021-08-14] MEDS: piperacillin-tazobactam 3.375 GM in sodium chloride 0.9% (plus) 50 ML IV ×2 (11:24→21:02)
[2021-08-14] MEDS: vancomycin 750 MG in sodium chloride 0.9% 250 ML 250 MG IV (11:24)
[2021-08-14] MEDS: insulin lispro 100 unit/1 mL SUBCUT (11:25)
--- NOTE | 2021-08-14 12:54 | PM.PN ---
Subjective Subjective: Hospital course, labs appreciated. On examination today sitting up in chair. Denies any nausea, vomiting, headache. States feeling a lot better. Outpatient chart reviewed. Blood culture from outside hospital at [facility] found to be positive for Enterobacter and E. coli. Awaiting susceptibilities. Patient has remained hemodynamically stable and afebrile. Not requiring any pressors. Vitals/I&O/Wt Last Vital Signs Temp 98 F 08/14/21 04:00 Pulse 74 08/14/21 10:00 Resp 18 08/14/21 10:00 BP 134/62 08/14/21 10:00 Pulse Ox 98 08/14/21 10:00 08/13/21 08/14/21 08/14/21 22:59 06:59 14:59 Intake Total 680 / 680 1528.75 / 2208.75 200 / 200 Output Total 200 / 200 1750 / 1950 Balance 480 / 480 -221.25 / 258.75 200 / 200 Weight last 48 hrs Weight 69.173 kg Weight 69.173 kg Physical Exam Narrative: General exam: AOx3, no acute distress HEENT: Pupils equally round. Atraumatic normocephalic. Oropharynx clear. Neck is supple no lymphadenopathy megaly Cardiovascular regular rate and rhythm without murmur, no S3 or S4 Lungs clear no wheezing or crackles. Abdomen is soft nontender positive bowel sounds. Nontender. No obvious organomegaly. exams deferred Extremities no cyanosis clubbing or edema, cap refill brisk. Skin a few spider telangiectasia noted over chest Neuro: AOx3, moving all limbs, no focal deficit Data : 08/14/21 04:30 08/14/21 04:30 Micro: Microbiology 08/13/21 13:52 Blood Culture - Preliminary Blood SPECIMEN COLLECTED 08/13/21 13:46 Blood Culture - Preliminary Blood SPECIMEN COLLECTED A&P Assessment and plan (1) E coli bacteremia: Status: Acute (2) Sepsis: Present on admission. At outside hospital found to be in shock fluid responsive. On admission significant evidence for endorgan damage with ADRIANA and encephalopathy. Currently shock resolved. Keep mean artery pressure 65. Outside blood cultures found to be positive for Enterobacter and E. coli. Susceptibility awaited. Repeat blood culture on 602 sent. Persistent leukocytosis. For now switch from ceftriaxone to IV Zosyn and vancomycin. Given positive blood cultures will most likely need antibiotics for at least 14 days once blood cultures turn negative. Check MRSA swab. Status: Acute (3) UTI (urinary tract infection): Antibiotics as above. Status: Acute (4) Acute kidney injury: No evidence of obstruction on CT scan. Resolving. Baseline creatinine normal. Creatinine down to 1.3. Monitor urine output. Medical reconciliation done for nephrotoxic drugs. Continue to follow renal function closely once daily Status: Acute (5) Thrombocytopenia: Most likely secondary to sepsis in setting of liver cirrhosis. Baseline platelet count last in the system around 1 40-1 50. Currently stable at 47,000. Continue to monitor. Status: Acute (6) Cirrhosis: Patient with history of cirrhosis, low platelet count. Protonix for GI prophylaxis. Status: Acute (7) Hypertension: Goal pressure less than 140/90 on Hg with mean over 65. For now hold off on antihypertensives. Status: Acute (8) Type 2 diabetes mellitus: Mild sliding scale insulin. Check A1c. No evidence of DKA was noted Status: Acute (9) Acute encephalopathy: Metabolic. Secondary to sepsis. Resolved. Status: Acute Plan Elevated dimer: Most likely secondary to sepsis. PE less likely as patient is on room air and hemodynamically stable. Lower limb Dopplers negative for DVT. Patient has significant thrombocytopenia. For now hold off on Lovenox. SCDs. Analgesia: Tylenol every 6 hourly as needed Glycemic control: Insulin sliding scale at low-dose protocol Nutrition: Carb consistent diet CODE STATUS: Full code PUD prophylaxis: Protonix DVT prophylaxis: SCDs, Lovenox. Monitor platelet count. Discharge planning: Discharge home once blood cultures come back negative. Will need antibiotics for 14 days. Antibiotics to be decided as per culture sensitivity. Continue with care MedSurg floor. Transfer out of ICU today. 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
[2021-08-14 14:08] LABS: Thyroid Stimulating Hormone 0.28 uIU/mL (0.27-4.20)
[2021-08-14] MEDS: montelukast sodium 10 mg Tablet PO (17:08)
[2021-08-14 17:39] LABS: Glucose Point of Care 133 mg/dL (70-110)
[2021-08-14] MEDS: gabapentin 300 mg Capsule PO (21:02)
[2021-08-14 21:04] LABS: Glucose Point of Care 120 mg/dL (70-110)
[2021-08-14 22:21] LABS: Add Urine Microscopic? YES; Bilirubin Urine Neg (Negative); Blood Urine 2+ (Negative); Glucose Urine UA Norm (Normal); Ketones Urine Negative (Negative); Leukocyte Esterase Urine Negative (Negative); Nitrate Urine Negative (Negative); Protein Urine Neg (Negative); Specific Gravity, Urine 1.005 (1.005-1.030); Urine Appearance Clear (CLEAR); Urine Color Yellow (Yellow); Urobilinogen Urine Norm (Negative); pH Urine 5 (5-7)
[2021-08-14 22:23] LABS: Bacteria Urine TRACE /hpf; RBC Urine 0-4 /hpf (0-2)
[2021-08-14 22:24] LABS: Add Urine Culture? No
[2021-08-14 22:31] LABS: Urine Creatinine 34 mg/dL (28-217)
[2021-08-14 22:54] LABS: Eosinophil Urine No Eosinophils Seen; Urine Eosinophil Count 0 (0-0)
[2021-08-15] VITALS (10 sets, daily range): BP systolic 118–146; BP diastolic 55–75; PULSE 68–88; RESP 12–18; TEMP 36.8–38.7; O2SAT 91–100
[2021-08-15] MEDS: piperacillin-tazobactam 3.375 GM in sodium chloride 0.9% (plus) 50 ML IV ×3 (03:20→23:13)
[2021-08-15] MEDS: enoxaparin 30 mg/0.3 mL Syringe SUBCUT (03:20)
[2021-08-15 04:57] LABS: Basophils % 0.2 %; Eosinophils # 0.2 10^3/uL (0.0-0.8); Eosinophils % 1.2 %; Hematocrit 31.5 % (37.0-47.0); Hemoglobin 10.4 g/dL (11.5-15.3); Lymphocytes # 1.4 10^3/uL (0.8-4.8); Lymphocytes % 11.7 %; Mean Corpuscular Hemoglobin 30.8 pg (28.0-34.0); Mean Corpuscular Volume 93.2 fl (81-99); Mean Platelet Volume 11.5 fL (7.4-10.4); Monocytes # 1.3 10^3/uL (0.2-0.9); Monocytes % 10.7 %; Neutrophils # 9.02 10^3/uL (1.8-7.7); Nucleated Red Blood Cells % 0.2 %; Platelet Count 45 10^3/cmm (130-400); Red Blood Count 3.38 10^6/uL (4.1-5.3); Red Cell Distribution Width 14.6 % (12.1-15.1); White Blood Count 12.1 10^3/uL (4.0-10.0)
[2021-08-15 05:11] LABS: Estmated Average Glucose 111; Hemoglobin A1C 5.5 % (4.0-6.0)
[2021-08-15 05:16] LABS: Alanine Aminotransferase 37 U/L (0-33); Albumin Level 2.6 g/dL (3.5-5.2); Alkaline Phosphatase 128 IU/L (35-105); Anion Gap 13.8 (5-19); Aspartate Amino Transferase 60 U/L (0-32); Blood Urea Nitrogen 27 mg/dL (8-23); Calcium 8.1 mg/dL (8.5-10.5); Carbon Dioxide 17 mmol/L (22-29); Chloride 111 mmol/L (98-107); Globulin 2.7 g/dL (1.3-4.6); Glucose 104 mg/dL (65-115); Osmolality Calculated 291 mOsm/kg (285-295); Potassium 3.8 mmol/L (3.5-5.1); Sodium 138 mmol/L (136-145); Total Bilirubin 0.4 mg/dL (0.15-1.2); Total Protein 5.3 g/dL (6.6-8.7)
[2021-08-15 05:17] LABS: Chol HDL Ratio 13.85 mg/dL (0.0-4.40); Cholesterol 180 mg/dL (0-200); HDL Cholesterol 13 mg/dL (60-100); LDL Cholesterol Calculated 109 mg/dL (50-129); Triglycerides 289 mg/dL (0-150); VLDL Cholestrol Calculation 58 mg/dL (0-30)
[2021-08-15 06:03] LABS: Slide Review Slide Review Perform
[2021-08-15 06:50] LABS: Glucose Point of Care 94 mg/dL (70-110)
[2021-08-15] MEDS: pantoprazole DR 40 mg Tablet PO (08:46)
[2021-08-15] MEDS: aspirin 81 mg EC Tablet PO (08:46)
[2021-08-15] MEDS: sodium chloride 0.9% 1,000 ML 75 ML IV (08:47)
[2021-08-15 11:16] LABS: HIV 1 & 2 Antibody Non-Reactive (Non-Reactiv); HIV 1 & 2 Antigen Non-Reactive (Non-Reactiv)
[2021-08-15 11:23] LABS: Hepatitis A Antibody IgM Non-Reactive (Nonreactive); Hepatitis B Core AB, Total Non-Reactive (Nonreactive); Hepatitis B Surface Antigen Non-Reactive (Nonreactive); Hepatitis C Virus Antibody Non-Reactive (Nonreactive)
[2021-08-15 11:43] LABS: Glucose Point of Care 117 mg/dL (70-110)
[2021-08-15 11:52] LABS: Hepatitis B Surface AB < 3.5 (11.5-1000)
[2021-08-15] MEDS: vancomycin 750 MG in sodium chloride 0.9% 250 ML 250 MG IV (13:05)
--- NOTE | 2021-08-15 13:51 | PM.PN ---
Subjective Subjective: No events overnight. Patient has remained hemodynamically stable and afebrile. Denies any nausea vomiting, headache. Vitals/I&O/Wt Last Vital Signs Temp 98.6 F 08/15/21 12:00 Pulse 80 08/15/21 12:00 Resp 12 08/15/21 12:00 BP 118/64 08/15/21 08:00 Pulse Ox 99 08/15/21 12:00 08/14/21 08/15/21 08/15/21 22:59 06:59 14:59 Intake Total 1818.75 / 2518.75 43.75 / 2562.50 898.75 / 898.75 Output Total 300 / 300 500 / 800 Balance 1518.75 / 2218.75 -456.25 / 1762.50 898.75 / 898.75 Weight last 48 hrs Weight 71.259 kg Weight 69.173 kg Weight 69.173 kg Physical Exam Narrative: General exam: AOx3, no acute distress HEENT: Pupils equally round. Atraumatic normocephalic. Oropharynx clear. Neck is supple no lymphadenopathy megaly Cardiovascular regular rate and rhythm without murmur, no S3 or S4 Lungs clear no wheezing or crackles. Abdomen is soft nontender positive bowel sounds. Nontender. No obvious organomegaly. exams deferred Extremities no cyanosis clubbing or edema, cap refill brisk. Skin a few spider telangiectasia noted over chest Neuro: AOx3, moving all limbs, no focal deficit Data : 08/15/21 04:40 08/15/21 04:40 Micro: Microbiology 08/14/21 22:05 MRSA Culture - Final Nose 08/13/21 13:52 Blood Culture - Preliminary Blood NEGATIVE TO DATE 08/13/21 13:46 Blood Culture - Preliminary Blood NEGATIVE TO DATE A&P Assessment and plan (1) E coli bacteremia: Status: Acute (2) Sepsis: Present on admission. At outside hospital found to be in shock fluid responsive. On admission significant evidence for endorgan damage with ADRIANA and encephalopathy. Currently shock resolved. Keep mean artery pressure 65. Outside blood cultures found to be positive for Enterobacter and E. coli. Susceptibility awaited. Repeat blood culture on 602 sent. Persistent leukocytosis. For now switch from ceftriaxone to IV Zosyn and vancomycin. Given positive blood cultures will most likely need antibiotics for at least 14 days once blood cultures turn negative. Check MRSA swab. Status: Acute (3) UTI (urinary tract infection): Antibiotics as above. Status: Acute (4) Acute kidney injury: No evidence of obstruction on CT scan. Resolving. Baseline creatinine normal. Creatinine down to 1.3. Monitor urine output. Medical reconciliation done for nephrotoxic drugs. Continue to follow renal function closely once daily Status: Acute (5) Thrombocytopenia: Most likely secondary to sepsis in setting of liver cirrhosis. Baseline platelet count last in the system around 1 40-1 50. Currently stable at 47,000. Continue to monitor. Status: Acute (6) Cirrhosis: Patient with history of cirrhosis, low platelet count. Protonix for GI prophylaxis. Status: Acute (7) Hypertension: Goal pressure less than 140/90 on Hg with mean over 65. For now hold off on antihypertensives. Status: Acute (8) Type 2 diabetes mellitus: Mild sliding scale insulin. No evidence of DKA was noted Status: Acute (9) Acute encephalopathy: Metabolic. Secondary to sepsis. Resolved. Status: Acute Plan Elevated dimer: Most likely secondary to sepsis. PE less likely as patient is on room air and hemodynamically stable. Lower limb Dopplers negative for DVT. Patient has significant thrombocytopenia. For now hold off on Lovenox. SCDs. Analgesia: Tylenol every 6 hourly as needed Glycemic control: Insulin sliding scale at low-dose protocol Nutrition: Carb consistent diet CODE STATUS: Full code PUD prophylaxis: Protonix DVT prophylaxis: SCDs, Lovenox. Monitor platelet count. Discharge planning: Discharge home once blood cultures come back negative. Will need antibiotics for 14 days. Antibiotics to be decided as per culture sensitivity. Plan today: Continue vancomycin. Urine culture from outside hospital showing E. coli. Sensitivities appreciated. Switch from Zosyn to ceftriaxone. Will await blood culture sensitivities. Follow-up blood cultures sent on 08/13. Monitor blood pressure. Monitor platelets. Continue Lovenox. Attestations Medical Necessity Statement*: Requires further hospitalization for management of E. coli, Enterobacter bacteremia, sepsis while repeat blood culture results are awaited. 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
[2021-08-15] MEDS: cefTRIAXone 1,000 MG in sodium chloride 0.9% (plus) 50 ML 100 MG IV (14:15)
--- NOTE | 2021-08-15 16:00 | PC.NURSE ---
Patient incontinent of geoffrey. Patient assisted to bathroom and to clean. Bed linens changed.
[2021-08-15 17:34] LABS: Glucose Point of Care 94 mg/dL (70-110)
[2021-08-15] MEDS: montelukast sodium 10 mg Tablet PO (18:12)
--- NOTE | 2021-08-15 19:50 | PC.NURSE ---
Fall This nurse called to patient room at approx. 1930 by aide due to an unwitnessed patient fall. Patient pulled emergency light in bathroom and was found by SUSAN Craig sitting in the bathroom floor. Patient had episode of diarrhea, did not quite make it to the commode and lost her strength and slid into the floor per patient report. Patient states that she did not hit her head and that she is not hurting anywhere. Patient does have a small bruise to her left upper back but patient states that is from earlier today when I slid against the wall because I lost my strength . Patient assisted to stand x2 assist from the floor and was cleaned with bath wipes. Patient ambulated back to bed with stand by assist, gown and socks changed and patient assisted to lay back in bed. Educated patient to use call light and wait for assistance before getting out of bed. Bed alarm set for patient safety. Patient verbalizes understanding. Vital signs stable but patient is running a fever currently, tylenol to be given. Family and physician to be notified. Charge nurse Bozena notified.
--- NOTE | 2021-08-15 20:11 | PC.NURSE ---
Fall Dr. Wilcox notified of patient fall. Attempted to notify patient's , Merrill, of patient fall but received no answer at either phone number. Will attempt to call patient again at a later time.
[2021-08-15] MEDS: atorvastatin 40 mg Tablet 20 MG PO (20:45)
[2021-08-15] MEDS: acetaminophen 325 mg Tablet 650 MG PO (20:45)
[2021-08-15] MEDS: gabapentin 300 mg Capsule PO (20:46)
[2021-08-15 21:15] LABS: Glucose Point of Care 105 mg/dL (70-110)
[2021-08-16] VITALS (10 sets, daily range): BP systolic 122–166; BP diastolic 64–85; PULSE 75–93; RESP 14–18; TEMP 36.6–38.1; O2SAT 95–98
[2021-08-16] MEDS: acetaminophen 325 mg Tablet 650 MG PO ×2 (04:40→09:47)
[2021-08-16] MEDS: enoxaparin 30 mg/0.3 mL Syringe SUBCUT (04:40)
[2021-08-16 05:29] LABS: Basophils % 0.4 %; Eosinophils # 0.1 10^3/uL (0.0-0.8); Eosinophils % 0.7 %; Hematocrit 33.8 % (37.0-47.0); Hemoglobin 11.3 g/dL (11.5-15.3); Lymphocytes # 0.7 10^3/uL (0.8-4.8); Lymphocytes % 8.1 %; Mean Corpuscular HGB Conc 33.4 g/dL (30.0-36.0); Mean Corpuscular Volume 92.9 fl (81-99); Mean Platelet Volume 11.8 fL (7.4-10.4); Monocytes # 1.1 10^3/uL (0.2-0.9); Neutrophils # 6.84 10^3/uL (1.8-7.7); Nucleated Red Blood Cells % 0 %; Platelet Count 50 10^3/cmm (130-400); Red Blood Count 3.64 10^6/uL (4.1-5.3); Red Cell Distribution Width 14.6 % (12.1-15.1); White Blood Count 8.9 10^3/uL (4.0-10.0)
[2021-08-16 05:44] LABS: Alanine Aminotransferase 38 U/L (0-33); Albumin Level 2.6 g/dL (3.5-5.2); Alkaline Phosphatase 162 IU/L (35-105); Blood Urea Nitrogen 25 mg/dL (8-23); Calcium 8.4 mg/dL (8.5-10.5); Carbon Dioxide 18 mmol/L (22-29); Chloride 103 mmol/L (98-107); Globulin 3.8 g/dL (1.3-4.6); Glucose 96 mg/dL (65-115); Osmolality Calculated 282 mOsm/kg (285-295); Sodium 134 mmol/L (136-145); Total Bilirubin 0.6 mg/dL (0.15-1.2); Total Protein 6.4 g/dL (6.6-8.7)
[2021-08-16 05:45] LABS: Anion Gap 16.7 (5-19); Aspartate Amino Transferase 56 U/L (0-32); Potassium 3.7 mmol/L (3.5-5.1)
[2021-08-16] MEDS: piperacillin-tazobactam 3.375 GM in sodium chloride 0.9% (plus) 50 ML IV ×3 (06:11→22:16)
[2021-08-16 06:26] LABS: Glucose Point of Care 102 mg/dL (70-110)
[2021-08-16] MEDS: pantoprazole DR 40 mg Tablet PO (09:47)
[2021-08-16] MEDS: aspirin 81 mg EC Tablet PO (09:47)
[2021-08-16 11:10] LABS: Glucose Point of Care 121 mg/dL (70-110)
--- NOTE | 2021-08-16 15:03 | PM.PN ---
Subjective Subjective: She had again fever overnight, last night up to one 101.6 at 8 PM. This morning also 100.6 at 4 AM. She states otherwise she is feeling generally weak, but no other complaints. She did have a fall last night when she was trying to walk with a front wheeled walker, at home uses a Rollator, request for that. Also states would like to go home, although willing to stay if can sleep in a recliner due to back issues sleeping in the hospital bed. Vitals/I&O/Wt Last Vital Signs Temp 97.9 F 08/16/21 12:00 Pulse 76 08/16/21 14:00 Resp 14 08/16/21 12:00 BP 134/85 08/16/21 12:00 Pulse Ox 95 08/16/21 12:00 08/16/21 08/16/21 08/16/21 06:59 14:59 22:59 Intake Total 50 / 2039.375 770 / 770 Balance 50 / 1739.375 770 / 770 Weight last 48 hrs Weight 70.352 kg Weight 71.259 kg Physical Exam Narrative: at bedside Const: COMMON NORMALS: alert GENERAL APPEARANCE: cooperative ORIENTATION/CONSCIOUSNESS: Yes awake OTHER: Sitting up in chair HENMT: COMMON NORMALS: normocephalic, EAC's normal, Normal external nose present and moist oral mucous membranes HEAD & SCALP: normocephalic NOSE: Normal external nose present EXTERNAL AUDITORY CANAL: EAC's normal Neck/C-Spine: COMMON NORMALS: no meningeal signs Chest: CHEST: Yes Symmetrical chest wall rise Resp: COMMON NORMALS: clear to auscultation bilaterally AUSCULTATION: clear to auscultation bilaterally Cardio: COMMON NORMALS: regular rate, regular rhythm and No murmurs present (Cardio) RATE: regular rate RHYTHM: regular rhythm GI: COMMON NORMALS: Normal to inspection, nondistended, normoactive bowel sounds present, Soft to palpation and non-tender PALPATION: Yes Soft to palpation Extremity: COMMON NORMALS: no pedal edema Neuro: COMMON NORMALS: moves all extremities SENSORIUM/ORIENTATION: Yes alert MENINGEAL SIGNS: Yes no meningeal signs Psych: COMMON NORMALS: mental status grossly normal Skin: COMMON NORMALS: no wounds RASHES: no rashes Data : 08/16/21 04:39 08/16/21 04:39 Micro: Microbiology 08/16/21 00:38 Enteric Pathogens (PCR) - Final Stool Routine Collection C.difficile Toxin B Gene (PCR) - Final 08/14/21 22:05 Urine Culture - Final Urine,Voided 08/16/21 00:38 Stool Lactoferrin - Final Stool A&P Assessment and plan (1) E coli bacteremia: Status: Acute (2) Sepsis: Sepsis resolved, but still spiking fever up to 1.6 last night, 100.6 this morning. Urinary source of sepsis with bloodstream infection as well, per discussion with [facility] E. coli in bloodstream and urine resistant to ampicillin, intermediate to Unasyn. Continue IV antibiotic with Zosyn for now since she is still febrile. However, if improving discussed with her return home with oral antibiotic to complete therapy. Present on admission. At outside hospital found to be in shock fluid responsive. On admission significant evidence for endorgan damage with ADRIANA and encephalopathy. Encephalopathy resolved. ADRIANA for now persists still. shock resolved. Stop vancomycin. Negative PCR MRSA swab. Status: Acute (3) UTI (urinary tract infection): Complicated UTI with bacteremia. Sepsis. Antibiotics as above. Status: Acute (4) Acute kidney injury: No evidence of obstruction on CT scan. With some improvement, but persists. Reassess renal function. Status: Acute (5) Thrombocytopenia: Improving Most likely secondary to sepsis in setting of liver cirrhosis. Baseline platelet count last in the system around 1 40-1 50. Continue to monitor. Status: Acute (6) Cirrhosis: Patient with history of cirrhosis, low platelet count. Protonix for GI prophylaxis. Status: Acute (7) Hypertension: For now hold off on antihypertensives. Status: Acute (8) Type 2 diabetes mellitus: Mild sliding scale insulin. No evidence of DKA was noted Status: Acute (9) Acute encephalopathy: Metabolic. Secondary to sepsis. Resolved. Status: Acute Plan Elevated dimer: Most likely secondary to sepsis. PE less likely as patient is on room air and hemodynamically stable. Lower limb Dopplers negative for DVT. Patient has significant thrombocytopenia. For now hold off on Lovenox. SCDs. Attestations Medical Necessity Statement*: Continue admission for assessment of management of improving sepsis, persistent fevers, with complicated urinary tract infection with bacteremia. Coding Level of Care Code Acute Cnc Specialist for [facility] Diagnoses E coli bacteremia R78.81; B96.20 Sepsis A41.9 UTI (urinary tract infection) N39.0 Acute kidney injury N17.9 Thrombocytopenia D69.6 Cirrhosis K74.60 Hypertension I10 Type 2 diabetes mellitus E11.9 Acute encephalopathy G93.40
--- NOTE | 2021-08-16 16:00 | PC.SOCIAL ---
IMM Update pg 2 of IMM updated and reviewed w/ patient. Copy provided and Copy placed in chart.
[2021-08-16 17:06] LABS: Glucose Point of Care 103 mg/dL (70-110)
[2021-08-16] MEDS: montelukast sodium 10 mg Tablet PO (17:25)
[2021-08-16] MEDS: atorvastatin 40 mg Tablet 20 MG PO (19:33)
[2021-08-16] MEDS: gabapentin 300 mg Capsule PO (19:33)
[2021-08-16 21:54] LABS: Glucose Point of Care 106 mg/dL (70-110)
[2021-08-17] VITALS (7 sets, daily range): BP systolic 110–152; BP diastolic 64–71; PULSE 69–82; RESP 16–17; TEMP 36.8–37.6; O2SAT 93–98
--- NOTE | 2021-08-17 01:32 | PC.NURSE ---
Addendum entered by Tiffany Felix RN 08/17/21 04:18: Patient educated that Dr. Wilcox ordered okay to give Tylenol. Patient took PRN Tylenol. Addendum entered by Tiffany Felix RN 08/17/21 01:45: Dr. Wilcox notified. Ordered okay to give Tylenol. Addendum entered by Tiffany Felix RN 08/17/21 01:32: Patient states she takes Naproxen at home for pain. Original Note: Patient refusing Tylenol. Patient states the liver doctor told me not to take it.
[2021-08-17] MEDS: acetaminophen 325 mg Tablet 650 MG PO (01:43)
--- NOTE | 2021-08-17 02:04 | PC.NURSE ---
Patient assisted to recliner. Patient states the bed is what is causing her back pain.
[2021-08-17] MEDS: enoxaparin 30 mg/0.3 mL Syringe SUBCUT (04:59)
[2021-08-17] MEDS: piperacillin-tazobactam 3.375 GM in sodium chloride 0.9% (plus) 50 ML IV (04:59)
[2021-08-17 06:08] LABS: Basophils % 0.2 %; Eosinophils % 0.4 %; Hematocrit 29.7 % (37.0-47.0); Hemoglobin 10.3 g/dL (11.5-15.3); Lymphocytes # 0.8 10^3/uL (0.8-4.8); Mean Corpuscular HGB Conc 34.7 g/dL (30.0-36.0); Mean Corpuscular Hemoglobin 31.5 pg (28.0-34.0); Mean Corpuscular Volume 90.8 fl (81-99); Mean Platelet Volume 11.5 fL (7.4-10.4); Monocytes # 1.1 10^3/uL (0.2-0.9); Monocytes % 20.9 %; Neutrophils % 61.4 %; Nucleated Red Blood Cells % 0 %; Platelet Count 57 10^3/cmm (130-400); Red Blood Count 3.27 10^6/uL (4.1-5.3); Red Cell Distribution Width 14.2 % (12.1-15.1); White Blood Count 5.2 10^3/uL (4.0-10.0)
[2021-08-17 06:34] LABS: Alanine Aminotransferase 33 U/L (0-33); Albumin Level 2.4 g/dL (3.5-5.2); Alkaline Phosphatase 117 IU/L (35-105); Aspartate Amino Transferase 48 U/L (0-32); Blood Urea Nitrogen 19 mg/dL (8-23); Calcium 8.3 mg/dL (8.5-10.5); Carbon Dioxide 19 mmol/L (22-29); Chloride 103 mmol/L (98-107); Globulin 3.4 g/dL (1.3-4.6); Glucose 106 mg/dL (65-115); Osmolality Calculated 281 mOsm/kg (285-295); Sodium 134 mmol/L (136-145); Total Bilirubin 0.6 mg/dL (0.15-1.2); Total Protein 5.8 g/dL (6.6-8.7)
[2021-08-17 06:40] LABS: Glucose Point of Care 108 mg/dL (70-110)
[2021-08-17] MEDS: potassium chloride ER 20 mEq Tablet 40 MEQ PO (09:54)
[2021-08-17] MEDS: pantoprazole DR 40 mg Tablet PO (09:55)
[2021-08-17] MEDS: aspirin 81 mg EC Tablet PO (09:55)
[2021-08-17 11:09] LABS: Glucose Point of Care 112 mg/dL (70-110)
--- NOTE | 2021-08-17 11:29 | PM.DCS ---
Discharge Providers Date of Admission: 08/13/21 12:15 Date of Discharge: August 17, 2021 Attending Provider at Admission: Bala Saldaña MD Attending Provider at Discharge: Jhoan Pinon Primary Care Provider: Gustavo Benson Diagnoses at Discharge Discharge Diagnosis (1) E coli bacteremia: Status: Acute (2) Sepsis: Status: Acute (3) UTI (urinary tract infection): Status: Acute (4) Acute kidney injury: Status: Acute (5) Thrombocytopenia: Status: Acute (6) Cirrhosis: Status: Acute (7) Hypertension: Status: Acute (8) Type 2 diabetes mellitus: Status: Acute (9) Acute encephalopathy: Status: Acute Reason for Visit Reason for Visit: Sepsus UTI Hospital Course Hospital Course Pleasant 71-year-old lady presents 71-year-old lady transferred in from outside facility, [facility], with past medical history of HTN, diabetes, pulm hypertension, cirrhosis, was transferred due to sepsis with complicated urinary tract infection with bacteremia. Cultures growing E. coli resistant to ampicillin with intermediate sensitivity to Unasyn in blood and urine. Treated with Zosyn, initially empirically vancomycin as well. Jose intermittent fevers, but otherwise sepsis resolved, fevers improving, was febrile last night, low-grade 100.6 Fahrenheit. She is overall feeling much better. She requires continued hospitalization and wants to return home today. During hospitalization blood counts were monitored as well with noted thrombocytopenia, platelets down to 45,000, which now is gradually improving, likely secondary to sepsis. Most recently 57,000 this morning. Please follow-up blood counts in office. Please follow-up potassium level. Initially with acute kidney injury, creatinine 1.5, this has resolved. Currently mild hyponatremia, potassium 3, received replacement. Resumed on triamterene, encouraged to increase potassium intake. Already diagnosed her to be most likely secondary to sepsis, lower extremity Dopplers negative for DVT. She has been having no respiratory symptoms, oxygenating well on room air. Foot x-ray with osteopenia and osteoarthritis. Possible hairline fracture proximal phalanx of third digit. Mild deformity proximal phalanx fifth digit. Bone spur off the inferior calcaneus. Physical Exam Const: COMMON NORMALS: alert GENERAL APPEARANCE: cooperative and frail appearing ORIENTATION/CONSCIOUSNESS: Yes awake OTHER: Sling updated in chair. HENMT: COMMON NORMALS: normocephalic, EAC's normal, Normal external nose present and moist oral mucous membranes HEAD & SCALP: normocephalic NOSE: Normal external nose present EXTERNAL AUDITORY CANAL: EAC's normal Neck/C-Spine: COMMON NORMALS: no meningeal signs Chest: CHEST: Yes Symmetrical chest wall rise Resp: COMMON NORMALS: clear to auscultation bilaterally AUSCULTATION: clear to auscultation bilaterally Cardio: COMMON NORMALS: regular rate, regular rhythm and No murmurs present (Cardio) RATE: regular rate RHYTHM: regular rhythm GI: COMMON NORMALS: Normal to inspection, nondistended, normoactive bowel sounds present, Soft to palpation and non-tender PALPATION: Yes Soft to palpation Extremity: COMMON NORMALS: no pedal edema Neuro: COMMON NORMALS: moves all extremities SENSORIUM/ORIENTATION: Yes alert MENINGEAL SIGNS: Yes no meningeal signs Psych: COMMON NORMALS: mental status grossly normal Skin: COMMON NORMALS: no wounds RASHES: no rashes Discharge Data Studies Completed and Pending Completed Studies During Hospitalization Category Date Time Status XR foot LT 2V [id number] Routine Exams 08/13/21 13:00 [place] [id number] Routine Ultrasound 08/13/21 12:51 Completed Pending at discharge Category Date Time Status Blood Culture Routine Lab 08/13/21 13:52 Results Complete Blood Count w/Auto AM LABS Lab 08/18/21 04:00 Ordered Complete Blood Count w/Auto AM LABS Lab 08/19/21 04:00 Ordered Comprehensive Metabolic Panel AM LABS Lab 08/18/21 04:00 Ordered Comprehensive Metabolic Panel AM LABS Lab 08/19/21 04:00 Ordered Radiology Impressions Foot X-Ray 08/13/21 13:00 IMPRESSION: 1. Osteopenia and osteoarthritis. 2. Possible hairline fracture proximal phalange 3rd digit 3. Mild deformity proximal phalange 5th digit 4. Bone spur inferior calcaneus Laboratory Results WBC 5.2 10^3/uL (4.0-10.0) 08/17/21 04:50 RBC 3.27 10^6/uL (4.1-5.3) L 08/17/21 04:50 Hgb 10.3 g/dL (11.5-15.3) L 08/17/21 04:50 Hct 29.7 % (37.0-47.0) L 08/17/21 04:50 MCV 90.8 fl (81-99) 08/17/21 04:50 MCH 31.5 pg (28.0-34.0) 08/17/21 04:50 MCHC 34.7 g/dL (30.0-36.0) 08/17/21 04:50 RDW 14.2 % (12.1-15.1) 08/17/21 04:50 Plt Count 57 10^3/cmm (130-400) L 08/17/21 04:50 MPV 11.5 fL (7.4-10.4) H 08/17/21 04:50 Neut % (Auto) 61.4 % 08/17/21 04:50 Lymph % (Auto) 15.0 % 08/17/21 04:50 [place] % (Auto) 20.9 % 08/17/21 04:50 Eos % (Auto) 0.4 % 08/17/21 04:50 Baso % (Auto) 0.2 % 08/17/21 04:50 Neut # (Auto) 3.20 10^3/uL (1.8-7.7) 08/17/21 04:50 Lymph # (Auto) 0.8 10^3/uL (0.8-4.8) 08/17/21 04:50 [place] # (Auto) 1.1 10^3/uL (0.2-0.9) H 08/17/21 04:50 Eos # (Auto) 0.0 10^3/uL (0.0-0.8) 08/17/21 04:50 Baso # (Auto) 0.0 10^3/uL (0.0-0.1) 08/17/21 04:50 Nucleated RBC % (auto) 0 % 08/17/21 04:50 Total Counted 100 (0-100) 08/13/21 13:52 Atypical Lymphs % 0.0 % (0-5) 08/13/21 13:52 Absolute Neutrophils 19.8 10^3/cmm (1.4-6.5) H 08/13/21 13:52 Segmented Neutrophils 64 % 08/13/21 13:52 Abs Segm Neuts (Man) 14.3 10/cmm (1.6-7.1) H 08/13/21 13:52 Band Neutrophils 25.0 % 08/13/21 13:52 Abs Band Neuts (Man) 5.6 10^3/cmm (0.0-1.2) H 08/13/21 13:52 Absolute Lymphocytes 0.7 10^3/cmm (1.2-3.4) L 08/13/21 13:52 Lymphocytes (Manual) 3 % 08/13/21 13:52 Monocytes (Manual) 5.0 % 08/13/21 13:52 Absolute Monocytes 1.1 10^3/cmm (0.1-0.6) H 08/13/21 13:52 Eosinophils (Manual) 0 % 08/13/21 13:52 Absolute Eosinophils 0.0 10^3/cmm (0.0-0.7) 08/13/21 13:52 Basophils (Manual) 0.0 % 08/13/21 13:52 Absolute Basophils 0.0 10^3/cmm (0.0-0.2) 08/13/21 13:52 Metamyelocytes 3.0 % 08/13/21 13:52 Myelocytes 0.0 % 08/13/21 13:52 Nucleated RBCs 0.0 /100WBC (0-1) 08/13/21 13:52 Nucleated RBCs # 0.0 /100WBC 08/17/21 04:50 Platelet Estimate Decreased (Normal) L 08/13/21 13:52 Sodium 134 mmol/L (136-145) L 08/17/21 04:50 Potassium 3.0 mmol/L (3.5-5.1) L 08/17/21 04:50 Chloride 103 mmol/L (98-107) 08/17/21 04:50 Carbon Dioxide 19 mmol/L (22-29) L 08/17/21 04:50 Anion Gap 15.0 (5-19) 08/17/21 04:50 BUN 19 mg/dL (8-23) 08/17/21 04:50 Creatinine 1.1 mg/dL (0.5-0.9) H 08/17/21 04:50 GFR Calculation Not Reportable 08/17/21 04:50 Glucose 106 mg/dL (65-115) 08/17/21 04:50 POC Glucose 112 mg/dL (70-110) H 08/17/21 10:58 Estimat Average Glucose 111 08/15/21 04:40 Hemoglobin A1c 5.5 % (4.0-6.0) 08/15/21 04:40 Calculated Osmolality 281 mOsm/kg (285-295) L 08/17/21 04:50 Calcium 8.3 mg/dL (8.5-10.5) L 08/17/21 04:50 Magnesium 2.2 mg/dL (1.7-2.3) 08/14/21 04:30 Total Bilirubin 0.6 mg/dL (0.15-1.2) 08/17/21 04:50 AST 48 U/L (0-32) H 08/17/21 04:50 ALT 33 U/L (0-33) 08/17/21 04:50 Alkaline Phosphatase 117 IU/L (35-105) H 08/17/21 04:50 Total Protein 5.8 g/dL (6.6-8.7) L 08/17/21 04:50 Albumin 2.4 g/dL (3.5-5.2) L 08/17/21 04:50 Globulin 3.4 g/dL (1.3-4.6) 08/17/21 04:50 Triglycerides 289 mg/dL (0-150) H 08/15/21 04:40 Cholesterol 180 mg/dL (0-200) 08/15/21 04:40 LDL Cholesterol, Calc 109 mg/dL (50-129) 08/15/21 04:40 Total VLDL Cholesterol 58 mg/dL (0-30) H 08/15/21 04:40 HDL Cholesterol 13 mg/dL (60-100) L 08/15/21 04:40 Cholesterol/HDL Ratio 13.85 mg/dL (0.0-4.40) H 08/15/21 04:40 TSH 0.28 uIU/mL (0.27-4.20) 08/14/21 04:30 Urine Color Yellow (Yellow) 08/14/21 22:05 Urine Appearance Clear (CLEAR) 08/14/21 22:05 Urine pH 5 (5-7) 08/14/21 22:05 Ur Specific Drift 1.005 (1.005-1.030) 08/14/21 22:05 Urine Protein Neg (Negative) 08/14/21 22:05 Urine Glucose (UA) Norm (Normal) 08/14/21 22:05 Urine Ketones Negative (Negative) 08/14/21 22:05 Urine Blood 2+ (Negative) H 08/14/21 22:05 Urine Nitrate Negative (Negative) 08/14/21 22:05 Urine Bilirubin Neg (Negative) 08/14/21 22:05 Urine Urobilinogen Norm mg/dL (Negative) 08/14/21 22:05 Ur Leukocyte Esterase Negative (Negative) 08/14/21 22:05 Urine RBC 0-4 /hpf (0-2) H 08/14/21 22:05 Urine WBC 10-15 /hpf (0-5) H 08/14/21 22:05 Ur Eosinophil Smear 0 (0-0) 08/14/21 22:05 Ur Squamous Epith Cells 5-10 /hpf (0-5) H 08/14/21 22:05 Amorphous Sediment Not Reportable 08/14/21 22:05 Urine Bacteria Trace /hpf (NONE) 08/14/21 22:05 Urine Eosinophils No eosinophils seen 08/14/21 22:05 Urine Creatinine 34 mg/dL (28-217) 08/14/21 22:05 Hepatitis A IgM Ab Non-reactive (Nonreactive) 08/15/21 04:55 Hep Bs Antigen Non-reactive (Nonreactive) 08/15/21 04:55 Hep Bs Antibody < 3.5 (11.5-1000) L 08/15/21 04:55 Hep B Core Total Ab Non-reactive (Nonreactive) 08/15/21 04:55 Hepatitis C Antibody Non-reactive (Nonreactive) 08/15/21 04:55 HIV 1&2 Ab & HIV 1 Ag Non-reactive (Non-Reactiv) 08/15/21 04:55 HIV 1&2 Antibody Non-reactive (Non-Reactiv) 08/15/21 04:55 Vitals Last Vital Signs Temp 98.3 F 08/17/21 07:54 Pulse 76 08/17/21 08:00 Resp 16 08/17/21 08:00 BP 152/70 08/17/21 07:54 Pulse Ox 98 08/17/21 08:00 Discharge Plan Discharge Patient Disposition: Home Condition: Stable Prescriptions: New atorvastatin 40 mg Tablet 20 mg PO BEDTIME Qty: 90 0RF ciprofloxacin HCl 500 mg tablet 500 mg PO BID 10 Days Qty: 20 0RF Continued verapamil 120 mg tablet extended release 120 mg PO DAILY 0RF albuterol sulfate 2.5 mg /3 mL (0.083 %) solution for nebulization 2.5 mg inhalation Q6H PRN (Reason: Shortness Of Breath) 0RF aspirin 81 mg tablet,delayed release (DR/EC) 81 mg PO DAILY 0RF gabapentin 300 mg capsule 300 mg PO BEDTIME 0RF triamterene-hydrochlorothiazid 37.5-25 mg tablet 1 tab PO DAILY 0RF omeprazole 20 mg capsule,delayed release(DR/EC) 20 mg PO DAILY 0RF montelukast 10 mg tablet 10 mg PO DAILY 0RF ProAir HFA 90 mcg/actuation HFA aerosol inhaler 2 puff INHALATION Q6H PRN (Reason: Shortness Of Breath) 0RF loratadine 10 mg tablet 10 mg PO DAILY 0RF Januvia 50 mg tablet 50 mg PO DAILY 0RF K-Tab 20 mEq tablet extended release 40 meq PO BID 0RF Discharge Orders: Discharge Order (Routine); Ordered 08/17/21 Ordered By: Jhoan Pinon Referrals: Gustavo Benson [Primary Care Provider] - 4-7 days Discharge Diet: Cardiac and Diabetic Discharge Activity: Increase activity as tolerated Patient Instructions: Ciprofloxacin (By mouth), Acute Kidney Injury (GEN), Urinary Tract Infection in Women (GEN), Potassium Content of Foods List (GEN), Fall Prevention (GEN), Bacteremia (GEN) Activity Restrictions/Additional Instructions: Follow-up with your primary doctor for reassessment for resolution of urinary tract infection. UA for infection was complicated with bacteremia. E. coli found growing in bloodstream and urine at outside facility, resistant to ampicillin, intermediate sensitivity to Unasyn. In case of any worsening symptoms, fever, abdominal pain, or other concerning symptoms, please return to ER. If platelet level is found to be moderately low, although improving with improving correction, please have your primary doctor follow-up platelet levels. Please have your primary doctor follow-up renal function to confirm resolution of acute kidney injury you had on presentation. Your potassium was mildly low this morning, replacement was given, but please have your primary doctor for potassium level. Include potassium containing foods in diet. Follow-up with your primary doctor regarding possible hairline fracture of third toe of the left foot. Avoid injury. Discharge Attestations Time Spent in Discharge Care*: greater than 30 min Quality Metrics Clinical Quality Measures [ No reported AMI, CVA or VTE this stay] Coding Level of Care Code Acute Chg FW DC note Diagnoses E coli bacteremia R78.81; B96.20 Sepsis A41.9 UTI (urinary tract infection) N39.0 Acute kidney injury N17.9 Thrombocytopenia D69.6 Cirrhosis K74.60 Hypertension I10 Type 2 diabetes mellitus E11.9 Acute encephalopathy G93.40
== END 2021-08-17 13:07 | disposition home or self-care (01) | DRG 871 ==
LOC: ICU 08-14 10:16 → MEDSURG 08-14 14:16
PROVIDERS: Student in an Organized Health Care Education/Training Program; Admitting Provider Internal Medicine; PCP Student in an Organized Health Care Education/Training Program; Visit Provider Internal Medicine
DX: A41.9 Sepsis, unspecified organism (principal); G93.41 Metabolic encephalopathy; N39.0 Urinary tract infection, site not specified; N17.9 Acute kidney failure, unspecified; Z16.11 Resistance to penicillins; E87.1 Hypo-osmolality and hyponatremia; J45.909 Unspecified asthma, uncomplicated; Z85.3 Personal history of malignant neoplasm of breast; K74.60 Unspecified cirrhosis of liver; K21.9 Gastro-esophageal reflux disease without esophagitis; I10 Essential (primary) hypertension; E11.42 Type 2 diabetes mellitus with diabetic polyneuropathy; Z90.12 Acquired absence of left breast and nipple; E83.42 Hypomagnesemia; M19.072 Primary osteoarthritis, left ankle and foot; M85.872 Other specified disorders of bone density and structure, left ankle and foot; S92.515A Nondisplaced fracture of proximal phalanx of left lesser toe(s), initial encounter for closed fracture; W19.XXXA Unspecified fall, initial encounter; B96.89 Other specified bacterial agents as the cause of diseases classified elsewhere; B96.20 Unspecified Escherichia coli [E. coli] as the cause of diseases classified elsewhere; Z79.51 Long term (current) use of inhaled steroids; Z79.82 Long term (current) use of aspirin; M77.32 Calcaneal spur, left foot; I27.20 Pulmonary hypertension, unspecified; D69.59 Other secondary thrombocytopenia
CPT/HCPCS: 36415; 36416; 73620; 80053; 80061; 81001; 82570; 82962; 83036; 83630; 83735; 84443; 85007; 85025; 85999; 86705; 86706; 86709; 86803; 87040; 87086; 87340; 87493; 87506; 87641; 87806; 93005; 93970; 94640; 96372; 97116; 97161; J0696; J1650; J1815; J2543; J3370; J7030; J7050

== ENCOUNTER 2021-10-05 12:18 | Oncology outpatient (recurring) (ONCR) | payer MEDICARE, OTHER, SELFPAY ==
[2021-10-05 13:05] LABS: Basophils % 0.4 %; Eosinophils # 0.2 10^3/uL (0.0-0.8); Eosinophils % 3.3 %; Hematocrit 34.5 % (37.0-47.0); Hemoglobin 11.5 g/dL (11.5-15.3); Lymphocytes # 1.2 10^3/uL (0.8-4.8); Lymphocytes % 26.4 %; Mean Corpuscular HGB Conc 33.3 g/dL (30.0-36.0); Mean Corpuscular Hemoglobin 30.8 pg (28.0-34.0); Mean Corpuscular Volume 92.5 fl (81-99); Mean Platelet Volume 10.1 fL (7.4-10.4); Monocytes # 0.6 10^3/uL (0.2-0.9); Monocytes % 12.9 %; Neutrophils # 2.56 10^3/uL (1.8-7.7); Neutrophils % 56.8 %; Nucleated Red Blood Cells % 0 %; Platelet Count 90 10^3/cmm (130-400); Red Blood Count 3.73 10^6/uL (4.1-5.3); Red Cell Distribution Width 13.8 % (12.1-15.1); White Blood Count 4.5 10^3/uL (4.0-10.0)
[2021-10-05 13:29] LABS: Alanine Aminotransferase 37 U/L (0-33); Albumin Level 3.7 g/dL (3.5-5.2); Alkaline Phosphatase 188 IU/L (35-105); Anion Gap 15.2 (5-19); Aspartate Amino Transferase 59 U/L (0-32); Blood Urea Nitrogen 18 mg/dL (8-23); Calcium 8.9 mg/dL (8.5-10.5); Carbon Dioxide 24 mmol/L (22-29); Chloride 105 mmol/L (98-107); Globulin 3.5 g/dL (1.3-4.6); Glucose 95 mg/dL (65-115); Osmolality Calculated 292 mOsm/kg (285-295); Potassium 4.2 mmol/L (3.5-5.1); Sodium 140 mmol/L (136-145); Total Bilirubin 0.5 mg/dL (0.15-1.2); Total Protein 7.2 g/dL (6.6-8.7)
== END 2021-10-10 23:59 | disposition home or self-care (01) ==
PROVIDERS: PCP Student in an Organized Health Care Education/Training Program; Visit Provider Internal Medicine Medical Oncology
DX: Z17.1 Estrogen receptor negative status [ER-]; Z90.12 Acquired absence of left breast and nipple; Z08 Encounter for follow-up examination after completed treatment for malignant neoplasm; Z85.3 Personal history of malignant neoplasm of breast; Z92.21 Personal history of antineoplastic chemotherapy; R21 Rash and other nonspecific skin eruption; D69.6 Thrombocytopenia, unspecified; G62.0 Drug-induced polyneuropathy; T45.1X5A Adverse effect of antineoplastic and immunosuppressive drugs, initial encounter
CPT/HCPCS: 36415; 80053; 85025; 99214

== ENCOUNTER → 2022-08-01 08:12 | Outpatient (BNVA) | payer MEDICARE, OTHER, SELFPAY | PROVIDERS: PCP Student in an Organized Health Care Education/Training Program; Visit Provider Nurse Practitioner Family | DX: L57.0 Actinic keratosis (principal); L82.1 Other seborrheic keratosis; L57.8 Other skin changes due to chronic exposure to nonionizing radiation; L85.3 Xerosis cutis; L81.4 Other melanin hyperpigmentation; D22.5 Melanocytic nevi of trunk; Z71.89 Other specified counseling | CPT/HCPCS: 17000; 17003; 99213 ==

== ENCOUNTER → 2022-11-01 08:08 | Outpatient (BNVA) | payer MEDICARE, OTHER, SELFPAY | PROVIDERS: PCP Family Medicine; Visit Provider Nurse Practitioner Family | DX: L57.0 Actinic keratosis (principal); L57.8 Other skin changes due to chronic exposure to nonionizing radiation; L85.3 Xerosis cutis; L81.4 Other melanin hyperpigmentation; Z85.828 Personal history of other malignant neoplasm of skin; D22.5 Melanocytic nevi of trunk; R60.0 Localized edema | CPT/HCPCS: 17000; 17003; 99213 ==

== ENCOUNTER → 2022-11-02 11:36 | Outpatient (BNVA) | payer MEDICARE, OTHER, SELFPAY | PROVIDERS: PCP Family Medicine; Visit Provider Family Medicine | DX: E11.9 Type 2 diabetes mellitus without complications (principal); D69.6 Thrombocytopenia, unspecified | CPT/HCPCS: 83036 ==

== ENCOUNTER → 2022-12-07 09:42 | Outpatient (BNVA) | payer MEDICARE, OTHER, SELFPAY | PROVIDERS: PCP Family Medicine; Visit Provider Dermatology | DX: L57.0 Actinic keratosis (principal) | CPT/HCPCS: 96567 ==

== ENCOUNTER → 2022-12-21 10:31 | Outpatient (BNVA) | payer MEDICARE, OTHER, SELFPAY | PROVIDERS: PCP Family Medicine; Visit Provider Dermatology | DX: L57.0 Actinic keratosis (principal) | CPT/HCPCS: 96567 ==

== ENCOUNTER → 2023-01-04 08:21 | Outpatient (BNVA) | payer MEDICARE, OTHER, SELFPAY | PROVIDERS: PCP Family Medicine; Visit Provider Dermatology | DX: L57.0 Actinic keratosis (principal) | CPT/HCPCS: 96567 ==

== ENCOUNTER → 2023-03-20 11:07 | Outpatient (BNVA) | payer MEDICARE, OTHER, SELFPAY | PROVIDERS: PCP Family Medicine; Visit Provider Nurse Practitioner Family | DX: K74.60 Unspecified cirrhosis of liver (principal); Z85.3 Personal history of malignant neoplasm of breast; I10 Essential (primary) hypertension; E78.5 Hyperlipidemia, unspecified; Z79.899 Other long term (current) drug therapy; R60.9 Edema, unspecified; Z13.6 Encounter for screening for cardiovascular disorders; E11.9 Type 2 diabetes mellitus without complications | CPT/HCPCS: 80053; 80061; 81003; 82306; 83036; 84443; 85025 ==

== ENCOUNTER 2023-03-30 10:39 | Outpatient (CLI) | payer MEDICARE, OTHER, SELFPAY ==
[2023-03-30] MEDS: iohexol 350 mg/mL 500 mL Btl (per mL) PO (12:22)
[2023-03-30] MEDS: iohexol 350 mg/mL 500 mL Btl (per mL) IV (12:23)
--- NOTE | 2023-03-30 12:30 | CT_ITS ---
WS: [id number] CT ABDOMEN AND PELVIS WITH CONTRAST HISTORY: K74.60 - Unspecified cirrhosis of liver TECHNIQUE: Imaging performed of the abdomen and pelvis with IV contrast. Single phase imaging of the abdomen. Coronal and sagittal reformats are submitted. All CT scans at [facility] use at alis st one of these dose optimization techniques: automated exposure control; mA and/or kV adjustment per patient size (includes targeted exams where dose is matched to clinical indication); or iterative re construction. IV CONTRAST: Omnipaque 350; 100 mL IV. Oral contrast: Yes. DLP: 1361.56 mGy.cm COMPARISON: 08/13/2021 Lower thorax: 2 mm subpleural nodule RIGHT lung base. Heart is normal size. 2 Liver/biliary system: Normal size liver. Marked nodularity of the liver surface. No mass identified o r bile duct dilatation. Gallbladder: Normal. No gallstones or wall thickening. No pericholecystic fluid. Pancreas: Normal size pancreas and pancreatic duct. No adjacent inflammation. Spleen: Normal size spleen. No mass or infarct. Adrenal glands: Normal. Right kidney: Diffuse mild cortical atrophy. No mass or obstruction. Left kidney: Very minimal cortical atrophy. No obstruction or solid mass. Aorta: Mild atherosclerosis with no aneurysm. Lymphadenopathy: There are several small shotty lymph nodes in the retroperitoneum. There is mild str anding in the fat surrounding the celiac axis, SMA and the aorta. This mild inflammation extends shirley g the proximal aortic bifurcation and along the JOHN. There is very slight nodularity involving the me senteric arteries. These findings have progressed since 2021 and are new since 2019. Free fluid: None. GI tract: Stomach is normally distended. No ischemic changes or obstruction within the GI tract. Prio r appendectomy. Abdominal wall: Fat containing umbilical hernia. Pelvis: No free fluid or adenopathy within the pelvis. Bones: Unremarkable. IMPRESSION: 1. Marked cirrhosis throughout the liver. No mass. 2. Mild inflammatory changes surrounding the aorta and the mesenteric arteries. Findings are highly suspicious for vasculitis. No aneurysms and no ischemic changes in the GI tract. There was mild infla mmation on the prior study from 2021 which is progressed. New since 2019. 3. Diffuse cortical atrophy of each kidney, RIGHT greater than LEFT. 4. Small shotty mesenteric and retroperitoneal lymph nodes.
== END 2023-03-30 10:40 | disposition home or self-care (01) ==
LOC: RAD 10:40
PROVIDERS: PCP Family Medicine; Visit Provider Nurse Practitioner Family
DX: K74.60 Unspecified cirrhosis of liver (principal); Z85.3 Personal history of malignant neoplasm of breast; R14.0 Abdominal distension (gaseous); I77.6 Arteritis, unspecified; N26.1 Atrophy of kidney (terminal)
CPT/HCPCS: 74177; Q9967

== ENCOUNTER → 2023-04-18 08:30 | Outpatient (BNVA) | payer MEDICARE, OTHER, SELFPAY | PROVIDERS: PCP Family Medicine; Visit Provider Nurse Practitioner Family | DX: R50.9 Fever, unspecified (principal) | CPT/HCPCS: 87400 ==

== ENCOUNTER → 2023-06-22 08:13 | Outpatient (BNVA) | payer MEDICARE, OTHER, SELFPAY | PROVIDERS: PCP Family Medicine; Visit Provider Podiatrist Foot & Ankle Surgery | DX: M19.072 Primary osteoarthritis, left ankle and foot (principal); M76.822 Posterior tibial tendinitis, left leg; E11.9 Type 2 diabetes mellitus without complications; M24.572 Contracture, left ankle; Z46.89 Encounter for fitting and adjustment of other specified devices; M79.672 Pain in left foot | CPT/HCPCS: 73630; 97760; 99203; L4361 ==

== ENCOUNTER 2023-06-22 09:58 | Outpatient (CLI) | payer MEDICARE, OTHER, SELFPAY | END 2023-06-22 09:59 | disposition home or self-care (01) | LOC: SPT 09:59 | PROVIDERS: PCP Family Medicine; Visit Provider Podiatrist Foot & Ankle Surgery | DX: Z46.89 Encounter for fitting and adjustment of other specified devices (principal); M79.672 Pain in left foot | CPT/HCPCS: 97760; L4361 ==

== ENCOUNTER 2023-07-06 10:07 | Outpatient (CLI) | payer MEDICARE, OTHER, SELFPAY | END 2023-07-06 10:08 | disposition home or self-care (01) | LOC: SPT 10:08 | PROVIDERS: PCP Nurse Practitioner Family; Visit Provider Podiatrist Foot & Ankle Surgery | DX: Z46.89 Encounter for fitting and adjustment of other specified devices (principal); M76.822 Posterior tibial tendinitis, left leg; M19.072 Primary osteoarthritis, left ankle and foot | CPT/HCPCS: 97760; 99213; L1902 ==

== ENCOUNTER → 2023-07-20 08:33 | Outpatient (BNVA) | payer MEDICARE, OTHER, SELFPAY | PROVIDERS: PCP Nurse Practitioner Family; Visit Provider Podiatrist Foot & Ankle Surgery | DX: M76.822 Posterior tibial tendinitis, left leg; E11.9 Type 2 diabetes mellitus without complications; M19.072 Primary osteoarthritis, left ankle and foot | CPT/HCPCS: 99213 ==

== ENCOUNTER 2023-12-06 14:18 | Inpatient (IN) | payer MEDICARE, OTHER, SELFPAY ==
[2023-12-06] VITALS (76 sets, daily range): BP systolic 98–161; BP diastolic 50–106; PULSE 0–104; RESP 15–32; TEMP 36.1–36.6; O2SAT 87–100; BMI 28.1
--- NOTE | 2023-12-06 14:18 | ECG_ITS ---
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 Measurements Intervals [place] Rate: 84 P: 0 WV: 0 QRS: 44 QRSD: 77 T: 55 QT: 350 QTc: 416 Interpretive Statements SUPRAVENTRICULAR RHYTHM LOW QRS VOLTAGE IN PRECORDIAL LEADS [QRS DEFLECTION < 1.0 mV IN CHEST LEADS] ABNORMAL RHYTHM ECG INTERPRETATION BASED ON A DEFAULT AGE OF 40 YEARS Compared to ECG 08/13/2021 14:01:14 Supraventricular rhythm now present Sinus rhythm no longer present Electronically Signed On 12-06-2023 23:01:32 CDT by Rosita Gleason M.D. [id number]
--- NOTE | 2023-12-06 14:18 | XRR_ITS ---
PROCEDURE INFORMATION: Exam: XR Chest Exam date and time: 12/06/2023 2:23 PM Age: 73 years old Clinical indication: Pain; Angina pectoris; Prior surgery; Surgery date: 6+ months; Patient HX: Elijah oakley, left breast cancer TECHNIQUE: Imaging protocol: Radiologic exam of the chest. Views: 1 view. COMPARISON: NM bone scan whole body* [id number] 09/06/2017 7:51 AM FINDINGS: Lungs: Both lungs demonstrate diffuse interstitial coarsening which is felt to be chronic. No lung mass or infiltrate. Pleural spaces: Unremarkable. No pleural effusion. No pneumothorax. Heart/Mediastinum: Unremarkable. No cardiomegaly. Bones/joints: Unremarkable. XR/XR chest 1V portable [id number] IMPRESSION: No acute findings.
--- NOTE | 2023-12-06 14:24 | ED_ITS ---
HPI - General Adult 2 General: Chief complaint: Arrhythmia/Palpitations Stated complaint: cele air1 Time Seen by Provider: 12/06/23 14:18 Source: patient and EMS Mode of arrival: EMS Limitations: no limitations History of Present Illness: 73-year-old female is brought in by air care states that ground EMS had been called she had went to the bathroom is found unresponsive when they arrived her heart was in the 30s she is unresponsive they tried atropine and started externally pacing her air EMS states that they started externally pacing her as well her heart rate did improve but she still been hypotensive they started an epi drip on the epi drip they been able to stop the pacing patient is now awake and alert she is complaining some upper abdominal pains and generalized weakness no known cardiac history. Associated symptoms: Deny chest pain, dyspnea, headache(s), nausea, rash or vomiting Related Data Home Medications Medication Instructions Recorded Confirmed albuterol sulfate 2.5 mg/3 mL 2.5 mg inhalation Q6H PRN 08/14/21 07/20/23 (0.083 %) solution for nebulization Shortness Of Breath albuterol sulfate 90 mcg/actuation 2 puff inhalation Q6H PRN 08/14/21 07/20/23 aerosol inhaler (ProAir HFA) Shortness Of Breath aspirin 81 mg tablet,delayed 81 mg PO DAILY 08/14/21 07/20/23 release gabapentin 300 mg capsule 300 mg PO BEDTIME 08/14/21 07/20/23 loratadine 10 mg tablet 10 mg PO DAILY 08/14/21 07/20/23 omeprazole 20 mg capsule,delayed 20 mg PO DAILY 08/14/21 07/20/23 release potassium chloride 20 mEq 40 meq PO BID 08/14/21 07/20/23 tablet,extended release (K-Tab) verapamil 120 mg tablet,extended 120 mg PO DAILY 08/14/21 07/20/23 release furosemide 20 mg tablet 20 mg PO DAILY 08/15/22 07/20/23 Previous Rx's Medication Instructions Recorded atorvastatin 40 mg tablet 20 mg (1/2 x 40 mg) PO BEDTIME #90 08/17/21 tabs montelukast 10 mg tablet 10 mg PO DAILY #90 tabs 12/25/22 diclofenac sodium 1 % topical gel 2 g topical QID #100 grams 04/18/23 (Voltaren Arthritis Pain) boot #1 ea 06/22/23 diabetic shoes with 3 inserts 5514 #1 ea 06/22/23 ASO to the Left #1 ea 07/06/23 Allergies Allergy/AdvReac Type Severity Reaction Status Date / Time No Known Allergies Allergy Verified 07/20/23 08:38 Review of Systems 2 Const: Denies: fever(s), chills, body aches or change in appetite ENMT: Denies: throat pain or dental pain Card: Reports: lightheadedness; Denies: chest pain Resp: Denies: dyspnea GI: Reports: abdominal pain; Denies: nausea, vomiting or diarrhea : Denies: dysuria Musc: Denies: neck pain or back pain Skin/Breast: Denies: rash Neuro: Denies: headache(s) PFSH ED 2 PFSH: Medical History Arthritis of foot, left Elevated serum creatinine Abnormal CT of the abdomen Abdominal bloating Medication management Hx of malignant neoplasm of breast History of gram negative sepsis (08/2021) E. coli urinary tract infection with bacteremia/sepsis Hyperlipidemia Liver cirrhosis Neuropathy GERD (gastroesophageal reflux disease) Type 2 diabetes mellitus Hypertension Asthma Breast cancer Surgical History History of cataract surgery History of colonoscopy 2011 History of removal of Port-a-Cath 03/2017 History of lumpectomy of left breast 09/08/2015 History of hand surgery Right hand surgery and left trigger finger repair History of left mastectomy (09/25/15) Left modified radical mastectomy History of foot surgery History of appendectomy Family History Other CAD (coronary artery disease) Cancer Diabetes Hyperlipidemia Hypertension Lung disease Denies family history of Clotting disorder Dementia Psychiatric illness Chronic kidney disease (CKD) Suicide Anesthesia complication Bleeding disorder Stroke Social History Smoking and tobacco/nicotine status: never used tobacco/nicotine Alcohol intake: never Substance/Drug Use: never Physical Exam 2 Const: COMMON NORMALS: no acute distress, patient oriented x3 and healthy appearing HENMT: COMMON NORMALS: normocephalic and atraumatic HEAD & SCALP: n ormocephalic and atraumatic Neck/C-Spine: COMMON NORMALS: full ROM and supple Chest: COMMONS NORMALS: normal inspection of the chest Resp: COMMON NORMALS: normal respiratory effort, No retractions, No use of accessory muscles and clear to auscultation bilaterally AUSCULTATION: clear to auscultation bilaterally Cardio: COMMON NORMALS: regular rate, regular rhythm and No murmurs present (Cardio) RATE: regular rate RHYTHM: regular rhythm GI: COMMON NORMALS: Normal to inspection, nondistended, normoactive bowel sounds present, Soft to palpation, non-tender and no masses PALPATION: Yes Soft to palpation Extremity: COMMON NORMALS: normal to inspection and full ROM Neuro: COMMON NORMALS: patient oriented x3, moves all extremities and no focal motor deficits Psych: COMMON NORMALS: mental status grossly normal, Normal thought process present and cooperative THOUGHT PROCESS: Normal thought process present Skin: COMMON NORMALS: no rashes or lesions noted and no wounds GENERAL SKIN EXAM: no rashes or lesions noted Course 2 Vital Signs: Vital signs: Vital Signs Temperature 97.8 F 12/06/23 14:21 Pulse Rate 69 12/06/23 14:52 Respiratory Rate 18 12/06/23 14:21 Blood Pressure 104/57 12/06/23 14:52 Pulse Oximetry 100 12/06/23 14:52 Oxygen Delivery Me thod Room Air 12/06/23 14:52 MDM - General Adult Medical Decision Making Patient presents here with bradycardia she is currently on epinephrine drip she was seen in the ER by cardiology Dr. Rudd will plan on holding her verapamil will admit to the ICU spoke to hospitalist will admit at this time and continue to monitor her heart rate. Medical Records I reviewed the patient's medical records. Lab Data I reviewed the patient's lab results. 12/06/23 14:43 12/06/23 14:43 Radiology Impressions Chest X-Ray 12/06/23 14:18 IMPRESSION: No acute findings. Abdomen/Pelvis CT 12/06/23 15:14 IMPRESSION: 1. Hepatic cirrhosis with mesenteric edema and minimal ascites 2. Diffuse colon wall thickening which is favored to be related to portal venous hypertension Laboratory Results WBC 9.94 10^3/uL (3.29-11.43) 12/06/23 14:43 RBC 3.58 10^6/uL (3.85-5.65) L 12/06/23 14:43 Hgb 9.60 g/dL (11.27-16.99) L 12/06/23 14:43 Hct 32.2 % (36-47) L 12/06/23 14:43 MCV 89.9 fl (85-98) 12/06/23 14:43 MCH 26.8 pg (27-33) L 12/06/23 14:43 MCHC 29.8 g/dL (30-55) L 12/06/23 14:43 RDW 17.3 % (12.1-15.1) H 12/06/23 14:43 Plt Count 153 10^3/cmm (157-399) L 12/06/23 14:43 MPV 10.1 fL (7.4-10.4) 12/06/23 14:43 Neut % (Auto) 76.9 % 12/06/23 14:43 Lymph % (Auto) 12.9 % 12/06/23 14:43 [place] % (Auto) 8.4 % 12/06/23 14:43 Eos % (Auto) 0.7 % 12/06/23 14:43 Baso % (Auto) 0.5 % 12/06/23 14:43 Neut # (Auto) 7.65 10^3/uL (1.8-7.7) 12/06/23 14:43 Lymph # (Auto) 1.3 10^3/uL (0.8-4.8) 12/06/23 14:43 [place] # (Auto) 0.8 10^3/uL (0.2-0.9) 12/06/23 14:43 Eos # (Auto) 0.1 10^3/uL (0.0-0.8) 12/06/23 14:43 Baso # (Auto) 0.1 10^3/uL (0.0-0.1) 12/06/23 14:43 Nucleated RBC % (auto) 0 % 12/06/23 14:43 Nucleated RBCs # 0.0 /100WBC 12/06/23 14:43 Sodium 136 mmol/L (136-145) 12/06/23 14:43 Potassium 5.3 mmol/L (3.5-5.1) H 12/06/23 14:43 Chloride 108 mmol/L (98-107) H 12/06/23 14:43 Carbon Dioxide 12 mmol/L (22-29) L 12/06/23 14:43 Anion Gap 21.3 (5-19) H 12/06/23 14:43 BUN 20 mg/dL (8-23) 12/06/23 14:43 Creatinine 1.6 mg/dL (0.5-0.9) H 12/06/23 14:43 GFR Calculation Not Reportable 12/06/23 14:43 Glucose 167 mg/dL (65-115) H 12/06/23 14:43 Calculated Osmolality 288 mOsm/kg (285-295) 12/06/23 14:43 Calcium 8.3 mg/dL (8.5-10.5) L 12/06/23 14:43 Total Bilirubin 0.5 mg/dL (0.15-1.2) 12/06/23 14:43 AST 46 U/L (0-32) H 12/06/23 14:43 ALT 28 U/L (0-33) 12/06/23 14:43 Alkaline Phosphatase 192 U/L (35-105) H 12/06/23 14:43 Troponin T Baseline 10 ng/L (0-10) 12/06/23 14:43 Total Protein 6.8 g/dL (6.6-8.7) 12/06/23 14:43 Albumin 3.6 g/dL (3.5-5.2) 12/06/23 14:43 Globulin 3.2 g/dL (1.3-4.6) 12/06/23 14:43 Lipase 115 U/L (13-60) H 12/06/23 14:43 All radiology interpretation(s) finalized by discharge Critical Care Time 2 Critical Care Time: Critical Care Time: Yes Total Critical Care Time: 40 Attestation: The high probability of a clinically significant, sudden or life threatening deterioration of the patient's cv system(s) required my full and direct attention, intervention and personal management. The critical care time is as shown. This time is in addition to time spent performing any reported procedures but includes the following: [x] Data and vital sign review and interpretation [x] Patient assessment, examination and intervention [x] Documentation [x] Medication orders and management Discharge Plan Discharge Patient Disposition: Admitted As Inpatient Clinical Impression: Bradycardia Condition: Stable Coding Level of Care Code ED Hypo Splasher for Karli Galeano
[2023-12-06] MEDS: EPINEPHrine 2.5 MG in sodium chloride 0.9% 250 ML 24.24 MG IV (14:45)
[2023-12-06] MEDS: sodium chloride 0.9% 500 ML 999 ML IV (14:50)
[2023-12-06 14:51] LABS: Basophils # 0.1 10^3/uL (0.0-0.1); Basophils % 0.5 %; Eosinophils # 0.1 10^3/uL (0.0-0.8); Eosinophils % 0.7 %; Hematocrit 32.2 % (36-47); Lymphocytes # 1.3 10^3/uL (0.8-4.8); Lymphocytes % 12.9 %; Mean Corpuscular HGB Conc 29.8 g/dL (30-55); Mean Corpuscular Hemoglobin 26.8 pg (27-33); Mean Corpuscular Volume 89.9 fl (85-98); Mean Platelet Volume 10.1 fL (7.4-10.4); Monocytes # 0.8 10^3/uL (0.2-0.9); Monocytes % 8.4 %; Neutrophils # 7.65 10^3/uL (1.8-7.7); Neutrophils % 76.9 %; Nucleated Red Blood Cells % 0 %; Platelet Count 153 10^3/cmm (157-399); Red Blood Count 3.58 10^6/uL (3.85-5.65); Red Cell Distribution Width 17.3 % (12.1-15.1); White Blood Count 9.94 10^3/uL (3.29-11.43)
[2023-12-06 15:13] LABS: Alanine Aminotransferase 28 U/L (0-33); Albumin Level 3.6 g/dL (3.5-5.2); Alkaline Phosphatase 192 U/L (35-105); Anion Gap 21.3 (5-19); Aspartate Amino Transferase 46 U/L (0-32); Blood Urea Nitrogen 20 mg/dL (8-23); Calcium 8.3 mg/dL (8.5-10.5); Carbon Dioxide 12 mmol/L (22-29); Chloride 108 mmol/L (98-107); Creatinine Clr Calc Pharmacy 30.0113; Globulin 3.2 g/dL (1.3-4.6); Glucose 167 mg/dL (65-115); Lipase 115 U/L (13-60); Osmolality Calculated 288 mOsm/kg (285-295); Potassium 5.3 mmol/L (3.5-5.1); Sodium 136 mmol/L (136-145); Total Bilirubin 0.5 mg/dL (0.15-1.2); Total Protein 6.8 g/dL (6.6-8.7)
[2023-12-06 15:14] LABS: Troponin(5th) Baseline 10 ng/L (0-10)
--- NOTE | 2023-12-06 15:14 | CTR_ITS ---
PROCEDURE INFORMATION: Exam: CT Abdomen And Pelvis Without Contrast Exam date and time: 12/06/2023 3:37 PM Age: 73 years old Clinical indication: Abdominal pain; Additional info: Abd pain TECHNIQUE: Imaging protocol: Computed tomography of the abdomen and pelvis without contrast. Radiation optimization: All CT scans at this facility use at least one of these dose optimization techniques: automated exposure control; mA and/or kV adjustment per patient size (includes targeted exams where dose is matched to clinical indication); or iterative reconstruction. COMPARISON: CT abdomen pelvis w con* [id number] 03/30/2023 12:18 PM RADIATION DOSE METRICS: Total DLP (mGy-cm): 1225 FINDINGS: Lungs: Lung bases are clear. No pleural effusion. Liver: The liver demonstrates an irregular contour and parenchymal heterogeneity consistent with cirrhosis. I see no liver mass. Gallbladder and biliary ducts: Normal. No calcified stones. No ductal dilation. Pancreas: Normal. No ductal dilation. Spleen: Normal. No splenomegaly. Adrenal glands: Normal. No mass. Kidneys and ureters: Normal. No hydronephrosis. Stomach and bowel: There is diffuse mild colon wall thickening. Appendix: No evidence of appendicitis. Intraperitoneal space: There is diffuse mesenteric edema along with minimal ascites surrounding the liver. Vasculature: Unremarkable. No abdominal aortic aneurysm. Lymph nodes: Unremarkable. No enlarged lymph nodes. Urinary bladder: Unremarkable as visualized. Reproductive: Unremarkable as visualized. Bones/joints: Unremarkable. No acute fracture. Soft tissues: There is evidence of previous left mastectomy. CT/CT abdomen pelvis wo con [id number] IMPRESSION: 1. Hepatic cirrhosis with mesenteric edema and minimal ascites 2. Diffuse colon wall thickening which is favored to be related to portal venous hypertension
[2023-12-06] MEDS: sodium chloride 0.9% 1,000 ML 999 ML IV (16:08)
--- NOTE | 2023-12-06 16:18 | ECG_ITS ---
[facility] Test Date: 2023-12-06 Pat Name: Erin Dickens Department: Room: Gender: Female Biometrics Analyst: : 1950 Requested By: Socorro Saini Order Number: [id number] Puja MD: Rosita Gleason M.D. Measurements Intervals [place] Rate: 77 P: 0 UT: 0 QRS: 48 QRSD: 76 T: 57 QT: 369 QTc: 418 Interpretive Statements SUPRAVENTRICULAR RHYTHM LOW QRS VOLTAGE IN PRECORDIAL LEADS [QRS DEFLECTION < 1.0 mV IN CHEST LEADS] ABNORMAL RHYTHM ECG Compared to ECG 12/06/2023 14:09:21 No significant changes Electronically Signed On 12-06-2023 23:10:31 CDT by Rosita Gleason M.D. [id number]
--- NOTE | 2023-12-06 16:55 | P.HP_ITS ---
Providers/Chief Complaint 2 Admitting Physician: Sophy Wren MD Primary Care Provider: Brandy Glasgow Chief Complaint: cele air1 History of Present Illness Erin Dickens is a 73 year old female with past medical history of hypertension, hyperlipidemia, asthma, type 2 diabetes mellitus, GERD, neuropathy, marked liver cirrhosis was brought in by air ambulance for bradycardia. She is a poor historian and at the bedside. As per the she was feeling dizzy but did not fall or lose consciousness and hence called EMS, when they arrived her heart rate was in 30s, though air EMS started externally pacing her. Heart rate did not improve when she was hypotensive and hence was started on epinephrine drip. Heart rate currently in 70 to 80s. Blood pressure improved to 104/57 on arrival in the ER. She is still on epinephrine drip. But reports feeling better as compared to on arrival in the ER. and patient denies any history of similar complaints in the past. She is on verapamil for blood pressure control. Denies any complaint of fever, cold, cough, nausea/vomiting, diarrhea, chest pain, palpitations or urinary complaints. She was all well until this morning. Cardiology consulted in ER. As per recommendation verapamil discontinued and plan to continue epinephrine drip, monitor in ICU and transvenous pacing if persistent bradycardia Review of Systems 2 General: Reports: 10 or more systems reviewed and unremarkable except in HPI and below Medications/Allergies Home Medications Medication Instructions Recorded Confirmed Last Taken Type albuterol sulfate 2.5 mg/3 mL 2.5 mg inhalation Q6H PRN 08/14/21 07/20/23 Unknown History (0.083 %) solution for nebulization Shortness Of Breath albuterol sulfate 90 mcg/actuation 2 puff inhalation Q6H PRN 08/14/21 07/20/23 Unknown History aerosol inhaler (ProAir HFA) Shortness Of Breath aspirin 81 mg tablet,delayed 81 mg PO DAILY 08/14/21 07/20/23 Unknown History release gabapentin 300 mg capsule 300 mg PO BEDTIME 08/14/21 07/20/23 Unknown History loratadine 10 mg tablet 10 mg PO DAILY 08/14/21 07/20/23 Unknown History omeprazole 20 mg capsule,delayed 20 mg PO DAILY 08/14/21 07/20/23 Unknown History release potassium chloride 20 mEq 40 meq PO BID 08/14/21 07/20/23 Unknown History tablet,extended release (K-Tab) verapamil 120 mg tablet,extended 120 mg PO DAILY 08/14/21 07/20/23 Unknown History release atorvastatin 40 mg tablet 20 mg (1/2 x 40 mg) PO BEDTIME #90 08/17/21 07/20/23 Unknown Rx tabs furosemide 20 mg tablet 20 mg PO DAILY 08/15/22 07/20/23 Unknown History montelukast 10 mg tablet 10 mg PO DAILY #90 tabs 12/25/22 07/20/23 Unknown Rx diclofenac sodium 1 % topical gel 2 g topical QID #100 grams 04/18/23 07/20/23 Unknown Rx (Voltaren Arthritis Pain) boot #1 ea 06/22/23 07/20/23 Unknown Rx diabetic shoes with 3 inserts 5514 #1 ea 06/22/23 07/20/23 Unknown Rx ASO to the Left #1 ea 07/06/23 07/20/23 Unknown Rx Allergies Allergy/AdvReac Type Severity Reaction Status Date / Time No Known Allergies Allergy Verified 07/20/23 08:38 PFSH Acute 2 PFSH: Medical History Arthritis of foot, left Elevated serum creatinine Abnormal CT of the abdomen Abdominal bloating Medication management Hx of malignant neoplasm of breast History of gram negative sepsis (08/2021) E. coli urinary tract infection with bacteremia/sepsis Hyperlipidemia Liver cirrhosis Neuropathy GERD (gastroesophageal reflux disease) Type 2 diabetes mellitus Hypertension Asthma Breast cancer Surgical History History of cataract surgery History of colonoscopy 2011 History of removal of Port-a-Cath 03/2017 History of lumpectomy of left breast 09/08/2015 History of hand surgery Right hand surgery and left trigger finger repair History of left mastectomy (09/25/15) Left modified radical mastectomy History of foot surgery History of appendectomy Family History Other CAD (coronary artery disease) Cancer Diabetes Hyperlipidemia Hypertension Lung disease Denies family history of Clotting disorder Dementia Psychiatric illness Chronic kidney disease (CKD) Suicide Anesthesia complication Bleeding disorder Stroke Social History (Reviewed 05/09/24 @ 08:38 by FATIMAH Fatima Smoking and tobacco/nicotine status: never used tobacco/nicotine Alcohol intake: never Substance/Drug Use: never Vitals/I&O/Wt Last Vital Signs Temp 97.8 F 12/06/23 14:21 Pulse 69 12/06/23 14:52 Resp 18 12/06/23 14:21 BP 104/57 12/06/23 14:52 Pulse Ox 100 12/06/23 14:52 O2 Del Method Room Air 12/06/23 14:52 12/06/23 12/06/23 12/06/23 06:59 14:59 22:59 Intake Total 776.808 / 776.808 Balance 776.808 / 776.808 Weight last 48 hrs Weight 74.389 kg Physical Exam 2 Narrative: She is alert awake oriented x 3, not in acute distress but seems anxious Chest clear to auscultation bilaterally Cardiovascular normal heart sounds Abdomen soft nontender nondistended normal bowel sounds Extremities trace edema present bilateral lower extremities Data 12/06/23 14:43 12/06/23 14:43 CT Abd/Pel: Radiologist's impression: IMPRESSION: 1. Hepatic cirrhosis with mesenteric edema and minimal ascites 2. Diffuse colon wall thickening which is favored to be related to portal venous hypertension CXR: Radiologist's impression: Negative for any acute findings A&P Assessment and plan (1) Symptomatic sinus bradycardia: (2) ADRIANA (acute kidney injury): (3) Hyperlipidemia: Qualifiers: Hyperlipidemia type: mixed hyperlipidemia Qualified Code(s): E78.2 - Mixed hyperlipidemia (4) Hypertension: Qualifiers: Hypertension type: primary hypertension Qualified Code(s): I10 - Essential (primary) hypertension (5) Liver cirrhosis: Qualifiers: Ascites presence: unspecified Hepatic cirrhosis type: unspecified hepatic cirrhosis Qualified Code(s): K74.60 - Unspecified cirrhosis of liver (6) Asthma: Plan Erin Dickens is a 73 year old female with past medical history of hypertension, hyperlipidemia, asthma, type 2 diabetes mellitus, GERD, neuropathy, marked liver cirrhosis was brought in by air ambulance for bradycardia with heart rate in 30s and ADRIANA with potassium 5.3, creatinine of 1.6, baseline creatinine 1.1 Symptomatic bradycardia- Cardiology consulted in ER. Follow-up for further recommendations Plan to continue epinephrine drip, monitor in ICU and transvenous pacing if persistent bradycardia. Rule out ACS, first set of troponin 10, follow-up 2 hours and 6-hour troponins. Hold off on verapamil, Lasix and potassium for now Continue aspirin and Lipitor ADRIANA-likely secondary to dehydration Received 2 L normal saline in ER Will monitor labs Will continue IV fluids normal saline at 80 mL/h Asthma-DuoNebs every 6 hours as needed, montelukast 10 mg daily Neuropathy-continue gabapentin GERD-continue omeprazole Diet n.p.o. 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 DVT prophylaxis-subcutaneous heparin CODE STATUS discussed with patient and family, she is full code for now Attestations 2 Medical Necessity Statement*: She needs continued hospitalization for management of symptomatic bradycardia and ADRIANA with IV fluids and epinephrine drip versus transvenous pacing if persistent Time Spent in Patient Care: 40 minutes Coding Level of Care Code Acute Code for Chg Fwd Diagnoses Symptomatic sinus bradycardia R00.1 ADRIANA (acute kidney injury) N17.9 Mixed hyperlipidemia E78.2 Hyperlipidemia type: mixed hyperlipidemia Primary hypertension I10 Hypertension type: primary hypertension Hepatic cirrhosis, unspecified hepatic cirrhosis type, unspecified whether ascites present K74.60 Ascites presence: unspecified Hepatic cirrhosis type: unspecified hepatic cirrhosis Asthma J45.909 Time Spent (min) 40
--- NOTE | 2023-12-06 17:09 | USCV_ITS ---
Erin Dickens Age: 73 Gender: F : 1950 Exam Date: 12/06/2023 19:28 Ordering Phys: Sophy Wren MD Technologist: [place] [facility] [place]: chest pain BP: 118 / 70 HR: 85 Rhythm: Sinus Technical Quality: Adequate MEASUREMENTS (Male / Female) Normal Values 2D ECHO LV Diastolic Diameter PLAX 3.8 cm 4.2 - 5.9 / 3.9 - 5.3 cm IVS Diastolic Thickness 1.1 cm 0.6 - 1.0 / 0.6 - 0.9 cm IVS Systolic Thickness 1.1 cm LVPW Diastolic Thickness 0.9 cm 0.6 - 1.0 / 0.6 - 0.9 cm LVPW Systolic Thickness 1.8 cm LVOT Diameter 1.9 cm LV Ejection Fraction 2D Teich 65.1 % LV Ejection Fraction MOD 4C 63.5 % LV Ejection Fraction MOD 2C 72.9 % LV Ejection Fraction 2C AL 72.4 % LA Diameter 2.8 cm RA Systolic Volume 4C AL 36.8 ml RA Systolic Volume 4C MOD 37.5 ml M-MODE LA Ao Ratio MM 2.0 AV Cusp Separation MM 1.7 cm DOPPLER AV Peak Velocity 166.0 cm/s LVOT Peak Velocity 105.0 cm/s AV Area Cont Eq vti 2.8 cm squared AV Area Cont Eq pk 1.7 cm squared MV Area PHT 4.5 cm squared Mitral E to A Ratio 3.9 TV Peak Velocity 261.5 cm/s TR Peak Velocity 285.0 cm/s TR Peak Gradient 32.5 mmHg TV Peak E Velocity 125.0 cm/s Right Atrial Pressure 3.0 mmHg Pulmonary Artery Systolic Pressu 35.5 mmHg PV Peak Velocity 119.0 cm/s FINDINGS Left Ventricle Left ventricle is normal in size. LV systolic function is normal with EF of 60 to 65%. No regional wall motion abnormalities are seen. Right Ventricle Normal in size and function Right Atrium Normal in size Left Atrium Normal in size Mitral Valve Structurally normal mitral valve. Moderate mitral regurgitation. Aortic Valve Structurally normal aortic valve.No significant stenosis or regurgitation. Tricuspid Valve Mild tricuspid regurgitation. RVSP is 35-40mmHg. This is consistent with mild pulmonary hypertension. Pulmonic Valve Not well visualized Pericardium Normal Aorta Normal in size IVC Appears to be normal CONCLUSIONS LV systolic function is normal with EF of 60-65% Moderate mitral regurgitation Mild tricuspid regurgitation Mild pulmonary hypertension Compared to prior echocardiogram from 2021, mitral regurgitation has progressed and is moderate now. Abhijit Kumar MD (Electronically Signed) Final Date: 07 December 2023 11:35 S
[2023-12-06] MEDS: morphine 4 mg/mL SDV 1 mL IVP (17:13)
[2023-12-06 17:21] LABS: Troponin 5 2HR 11.03 ng/L (0-10); Troponin 5 2HR Delta 1.03 ABS# (0-10)
--- NOTE | 2023-12-06 17:28 | P.CONIM_ITS ---
Providers/Reason For Consult 2 Consulting Physician/Specialty*: Abhijit Kumar/ Cardiology Reason for Consult*: Bradycardia Requesting Physician: Dr Saini Attending Physician: Sophy Wren MD Primary Care Provider: Brandy Glasgow History of Present Illness History of Present Illness Erin Dickens is a 73 year old female with history of liver cirrhosis who was feeling dizzy and had confusion. EMS was called. No falls or syncope. They found she was bradycardic. Only one rhythm strip from that time shows bradycardia however it is not a full strip. Can not assess AV block on that. She was transcutaneously paced and brought to ER. On epinephrine gtt. Heart rates are in 70s-80s. She feels drowsy. Family at bedside mentions that she gets these spells where she will drowsy and confused. In the past was noted to have elevated ammonia levels when this happened. Denies chest pain. EKG shows accelerated junctional rhythm. She takes verapamil at home. Review of Systems 2 General: Reports: 10 or more systems reviewed and unremarkable except in HPI and below Medications/Allergies Home Medications Medication Instructions Recorded Confirmed Last Taken Type albuterol sulfate 2.5 mg/3 mL 2.5 mg inhalation Q6H PRN 08/14/21 12/07/23 12/06/23 History (0.083 %) solution for nebulization Shortness Of Breath aspirin 81 mg tablet,delayed 81 mg PO DAILY 08/14/21 12/07/23 Unknown History release gabapentin 300 mg capsule 300 mg PO BEDTIME 08/14/21 12/07/23 12/06/23 History loratadine 10 mg tablet 10 mg PO DAILY 08/14/21 12/07/23 12/06/23 History omeprazole 20 mg capsule,delayed 20 mg PO PRN 08/14/21 12/07/23 Unknown History release potassium chloride 20 mEq 40 meq PO BID 08/14/21 12/07/23 12/06/23 History tablet,extended release (K-Tab) verapamil 120 mg tablet,extended 120 mg PO DAILY 08/14/21 12/07/23 12/06/23 History release furosemide 20 mg tablet 20 mg PO DAILY 08/15/22 12/07/23 12/06/23 History montelukast 10 mg tablet 10 mg PO DAILY #90 tabs 12/25/22 12/07/23 12/06/23 Rx boot #1 ea 06/22/23 12/07/23 Unknown Rx diabetic shoes with 3 inserts 5514 #1 ea 06/22/23 12/07/23 Unknown Rx ASO to the Left #1 ea 07/06/23 12/07/23 Unknown Rx Allergies Allergy/AdvReac Type Severity Reaction Status Date / Time No Known Allergies Allergy Verified 07/20/23 08:38 Current Medications Generic Name Dose Route Start Last Admin Trade Name Jennifer PRN Reason Stop Dose Admin Epinephrine HCl 2.5 mg/ Sodium 252.5 mls @ 0 mls/hr 12/06/23 14:30 12/06/23 15:12 Chloride IV 5 mcg/min .Q0M JYOTI 30.3 mls/hr Titration Protocol Per Protocol PFSH Acute 2 PFSH: Medical History Arthritis of foot, left Elevated serum creatinine Abnormal CT of the abdomen Abdominal bloating Medication management Hx of malignant neoplasm of breast History of gram negative sepsis (08/2021) E. coli urinary tract infection with bacteremia/sepsis Hyperlipidemia Liver cirrhosis Neuropathy GERD (gastroesophageal reflux disease) Type 2 diabetes mellitus Hypertension Asthma Breast cancer Surgical History History of cataract surgery History of colonoscopy 2011 History of removal of Port-a-Cath 03/2017 History of lumpectomy of left breast 09/08/2015 History of hand surgery Right hand surgery and left trigger finger repair History of left mastectomy (09/25/15) Left modified radical mastectomy History of foot surgery History of appendectomy Family History Other CAD (coronary artery disease) Cancer Diabetes Hyperlipidemia Hypertension Lung disease Denies family history of Clotting disorder Dementia Psychiatric illness Chronic kidney disease (CKD) Suicide Anesthesia complication Bleeding disorder Stroke Social History Smoking and tobacco/nicotine status: never used tobacco/nicotine Alcohol intake: never Substance/Drug Use: never Vitals/I&O/Wt Last Vital Signs Temp 97.8 F 12/06/23 14:21 Pulse 104 H 12/06/23 17:00 Resp 30 H 12/06/23 16:45 BP 141/69 12/06/23 17:00 Pulse Ox 90 12/06/23 17:00 O2 Del Method Room Air 12/06/23 14:52 12/06/23 12/06/23 12/06/23 06:59 14:59 22:59 Intake Total 776.808 / 776.808 Balance 776.808 / 776.808 Weight last 48 hrs Weight 164 lb Physical Exam 2 Narrative: GENERAL: Patient is drowsy NECK: No jugular vein distension. [] HEENT: No cyanosis. No icterus. No pallor. [] HEART: Regular S1 and S2. No murmur, rub or gallop. [] LUNGS: Clear to auscultate bilaterally. [] CENTRAL NERVOUS SYSTEM: Grossly nonfocal. [] EXTREMITIES: Lower extremities with 1+ edema bilaterally. Data 12/07/23 05:10 12/07/23 05:10 A&P Assessment and plan (1) Bradycardia: (2) Type 2 diabetes mellitus: (3) Liver cirrhosis: Qualifiers: Hepatic cirrhosis type: unspecified hepatic cirrhosis Ascites presence: unspecified Qualified Code(s): K74.60 - Unspecified cirrhosis of liver (4) ADRIANA (acute kidney injury): Plan Patient is currently on epinephrine and has normal heart rate. Rhythm appears to be junctional. We do not have initial EMS arrival rhythm when was started on transcuaneous pacing. Continue epi gtt overnight. She was on verapamil at home. She appears confused. Possibility of taking higher than prescribed dose. Hold all rate controlling medications. Tomorrow we will wean down epi and reassess rhythm and rate. Obtain echocardiogram. Check ammonia level as she has liver cirrhosis and in the past her confusion has correlated with elevated levels. Currently with normal heart rate and blood pressure she still appears drowsy. Likely unrelated to cardiac etiology. ICU monitoring. Maintain electrolytes within normal limits Thank you for involving us with care of this patient. We will continue to follow. Please call with questions. Consult Attestations 2 Medical Necessity Statement: Care expected to cross 2 midnights. Coding Level of Care Code Acute Code for Chg Fwd Diagnoses Bradycardia R00.1 Type 2 diabetes mellitus E11.9 Hepatic cirrhosis, unspecified hepatic cirrhosis type, unspecified whether ascites present K74.60 Hepatic cirrhosis type: unspecified hepatic cirrhosis Ascites presence: unspecified ADRIANA (acute kidney injury) N17.9
[2023-12-06] MEDS: sodium chloride 0.9% 1,000 ML 80 ML IV (18:35)
[2023-12-06] MEDS: sodium polystyrene sulfonate 15 gm/60 mL Btl PO (18:35)
[2023-12-06] MEDS: heparin 5,000 unit/mL INJ 1 mL 5000 UNIT SUBCUT (18:35)
--- NOTE | 2023-12-06 19:35 | PC.NURSE ---
SHift SUmmary: arrived in ICU at approximately 1800, shortly before shift change. Since then patient has rested comfortably in bed. Epi titrated from 5mcg to 4mcg.
--- NOTE | 2023-12-06 20:07 | ECG_ITS ---
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 Measurements Intervals [place] Rate: 87 P: 0 PA: 0 QRS: 40 QRSD: 90 T: 60 QT: 357 QTc: 430 Interpretive Statements ATRIAL FIBRILLATION LOW QRS VOLTAGE IN EXTREMITY LEADS [QRS DEFLECTION < 0.5 mV IN LIMB LEADS] ABNORMAL RHYTHM ECG Compared to ECG 12/06/2023 14:55:20 Supraventricular rhythm no longer present Electronically Signed On 12-06-2023 23:09:52 CDT by Rosita Gleason M.D. [id number]
[2023-12-06] MEDS: gabapentin 300 mg Capsule PO (21:10)
[2023-12-06] MEDS: atorvastatin 40 mg Tablet 20 MG PO (21:10)
--- NOTE | 2023-12-06 21:33 | PC.NURSE ---
at bedside asked to stay the night. Permission received from warehouse order filler.
[2023-12-06 22:05] LABS: Troponin 5 6HR 12.96 ng/L (0-10); Troponin 5 6HR Delta 2.96 ng/L (0-12)
[2023-12-06 22:07] LABS: Ammonia 126 umol/L (11-51)
[2023-12-07] VITALS (64 sets, daily range): BP systolic 83–170; BP diastolic 45–94; PULSE 67–94; RESP 7–33; TEMP 36.7–37.7; O2SAT 89–99
[2023-12-07] MEDS: EPINEPHrine 2.5 MG in sodium chloride 0.9% 250 ML 30.3 MG IV (00:35)
[2023-12-07 03:08] LABS: Adenovirus Not Detected (NOT DETECT); Chlamydia Pneumoniae Not Detected (NOT DETECT); Coronavirus 229E,HKU1,NL63,OC4 Not Detected (NOT DETECT); Human Metapneumovirus Not Detected (NOT DETECT); Human Rhinovirus/Enterovirus Not Detected (NOT DETECT); Influenza A Not Detected (NOT DETECT); Influenza A H1 Not Detected (NOT DETECT); Influenza A H1-2009 Not Detected (NOT DETECT); Influenza A H3 Not Detected (NOT DETECT); Influenza B Not Detected (NOT DETECT); Mycoplasma Pneumoniae Not Detected (NOT DETECT); Parainfluenza Virus Type 1 Not Detected (NOT DETECT); Parainfluenza Virus Type 2 Not Detected (NOT DETECT); Parainfluenza Virus Type 3 Not Detected (NOT DETECT); Parainfluenza Virus Type 4 Not Detected (NOT DETECT); Respiratory Syncytial Virus A Not Detected (NOT DETECT); Respiratory Syncytial Virus B Not Detected (NOT DETECT); SARS-COV-2 Not Detected (NOT DETECT)
[2023-12-07 05:54] LABS: Basophils % 0.3 %; Eosinophils % 0.2 %; Hematocrit 28.4 % (36-47); Lymphocytes # 1.4 10^3/uL (0.8-4.8); Lymphocytes % 11.7 %; Mean Corpuscular HGB Conc 30.6 g/dL (30-55); Mean Corpuscular Hemoglobin 27.4 pg (27-33); Mean Corpuscular Volume 89.3 fl (85-98); Mean Platelet Volume 10.6 fL (7.4-10.4); Monocytes # 1.7 10^3/uL (0.2-0.9); Monocytes % 14.3 %; Neutrophils # 8.53 10^3/uL (1.8-7.7); Neutrophils % 72.8 %; Nucleated Red Blood Cells % 0 %; Platelet Count 145 10^3/cmm (157-399); Red Blood Count 3.18 10^6/uL (3.85-5.65); Red Cell Distribution Width 17.2 % (12.1-15.1); White Blood Count 11.71 10^3/uL (3.29-11.43)
[2023-12-07 06:06] LABS: Bilirubin Urine Negative (Negative); Blood Urine 2+ (Negative); Glucose Urine UA Negative (Normal); Ketones Urine Negative (Negative); Leukocyte Esterase Urine 2+ (Negative); Nitrate Urine Negative (Negative); Protein Urine Negative (Negative); Specific Gravity, Urine 1.015 (1.005-1.030); Urine Appearance Clear (CLEAR); Urine Color Yellow (Yellow); Urobilinogen Urine 0.2 mg/dL (Negative)
[2023-12-07] MEDS: sodium chloride 0.9% 1,000 ML 80 ML IV (06:09)
[2023-12-07 06:11] LABS: Add Urine Microscopic? YES; Hyaline Casts Urine 12.81 /lpf; Squamous Epithelial Cell Urine 0-5 /hpf (0-5); Universal Test for UA Present (0); WBC Urine >100 /hpf (0-5)
[2023-12-07] MEDS: heparin 5,000 unit/mL INJ 1 mL 5000 UNIT SUBCUT ×2 (06:14→17:48)
[2023-12-07 06:29] LABS: Alanine Aminotransferase 29 U/L (0-33); Albumin Level 3.4 g/dL (3.5-5.2); Alkaline Phosphatase 150 U/L (35-105); Anion Gap 22.1 (5-19); Aspartate Amino Transferase 45 U/L (0-32); Blood Urea Nitrogen 25 mg/dL (8-23); Calcium 8.4 mg/dL (8.5-10.5); Carbon Dioxide 12 mmol/L (22-29); Chloride 106 mmol/L (98-107); Creatinine Clr Calc Pharmacy 30.6024; Globulin 3.3 g/dL (1.3-4.6); Glucose 136 mg/dL (65-115); Osmolality Calculated 284 mOsm/kg (285-295); Potassium 6.1 mmol/L (3.5-5.1); Sodium 134 mmol/L (136-145); Thyroid Stimulating Hormone 3.25 uIU/mL (0.27-4.20); Total Bilirubin 0.8 mg/dL (0.15-1.2); Total Protein 6.7 g/dL (6.6-8.7)
[2023-12-07 06:30] LABS: Add Urine Culture? Yes; Bacteria Urine TRACE /hpf; UA Slide Review UA Slide Review Perf
[2023-12-07 06:31] LABS: NT Pro B Type Natriuretic Pept 1053 pg/mL (0-450)
[2023-12-07 07:47] LABS: Glucose Point of Care 163 mg/dL (70-110)
[2023-12-07] MEDS: pantoprazole DR 40 mg Tablet PO (08:27)
[2023-12-07] MEDS: calcium gluconate 0.9% NaCL 1 GM/50 ML PREMIX IV (08:28)
[2023-12-07] MEDS: montelukast sodium 10 mg Tablet PO (08:28)
[2023-12-07] MEDS: sodium polystyrene sulfonate 15 gm/60 mL Btl PO (08:28)
[2023-12-07] MEDS: aspirin 81 mg EC Tablet PO (08:28)
[2023-12-07] MEDS: lactulose oral liq 20 gm/30 mL UDC 30 GM PO (09:13)
[2023-12-07] MEDS: ipratropium-albuterol 3 mL Neb INHALATION (09:29)
--- NOTE | 2023-12-07 10:32 | P.PN_ITS ---
Subjective 2 Subjective: Patient is doing better. Weaned off of epi gtt. Now in normal sinus rhythm. Vitals/I&O/Wt Last Vital Signs Temp 99.1 F 12/07/23 04:00 Pulse 82 12/07/23 09:31 Resp 22 H 12/07/23 09:31 BP 142/48 12/07/23 09:00 Pulse Ox 97 12/07/23 09:31 O2 Del Method Room Air 12/07/23 09:31 12/06/23 12/07/23 12/07/23 22:59 06:59 14:59 Intake Total 998.808 / 820.417 9820.925 / 2645.733 284.32 / 284.32 Balance 998.808 / 548.709 7772.925 / 2645.733 284.32 / 284.32 Weight last 48 hrs Weight 148 lb 12.992 oz Weight 148 lb 12.992 oz Weight 164 lb Physical Exam 2 Narrative: GENERAL: Patient is alert and oriented. NECK: No jugular vein distension. [] HEENT: No cyanosis. No icterus. No pallor. [] HEART: Regular S1 and S2. No murmur, rub or gallop. [] LUNGS: Clear to auscultate bilaterally. [] CENTRAL NERVOUS SYSTEM: Grossly nonfocal. [] EXTREMITIES: Lower extremities with 1+ edema bilaterally. Urinary Catheter Management: [facility]: Cath Placed During This Visit: yes Reason for Continuing Indwelling Catheter: Accurate Measurement of Urinary Output in Critically Ill Patients Urinary Catheter Date of Insertion: 12/06/23 Urinary Catheter Time of Insertion: 16:00 Data 12/07/23 05:10 12/07/23 05:10 A&P Assessment and plan (1) Bradycardia: (2) Type 2 diabetes mellitus: (3) Liver cirrhosis: Qualifiers: Hepatic cirrhosis type: unspecified hepatic cirrhosis Ascites presence: unspecified Qualified Code(s): K74.60 - Unspecified cirrhosis of liver (4) ADRIANA (acute kidney injury): Plan Patient has been weaned off of epi gtt. back in sinus rhythm. Continue holding all rate lowering medications. If heart rates and rhythm staying normal by tomorrow, can plan on discharge with event monitor. For blood pressure control can start amlodipine. Ammonia level was elevated. Started on Lactulose. She is more alert and oriented today. Thank you for involving us with care of this patient. We will continue to follow. Please call with questions. Attestations 2 Medical Necessity Statement*: Care expected to cross 2 midnights. Coding Level of Care Code Acute Code for Chg Fwd Diagnoses Bradycardia R00.1 Type 2 diabetes mellitus E11.9 Hepatic cirrhosis, unspecified hepatic cirrhosis type, unspecified whether ascites present K74.60 Hepatic cirrhosis type: unspecified hepatic cirrhosis Ascites presence: unspecified ADRIANA (acute kidney injury) N17.9
--- NOTE | 2023-12-07 11:49 | P.PN_ITS ---
Subjective 2 Subjective: No significant overnight issues noted. She was on epinephrine gtt. overnight with heart rate in 70 to 80s. Seen her at bedside this morning, feeling much better, seems less confused, was able to provide history regarding liver cirrhosis and elevated ammonia levels in the past. She has been recently started on spironolactone and rifaximin by PCP in [place]. at bedside. and patient aware of ammonia levels and associated encephalopathy and has been compliant with her medications. Medications: Reviewed: Yes Vitals/I&O/Wt Last Vital Signs Temp 99.1 F 12/07/23 04:00 Pulse 82 12/07/23 09:31 Resp 22 H 12/07/23 09:31 BP 142/48 12/07/23 09:00 Pulse Ox 97 12/07/23 09:31 O2 Del Method Room Air 12/07/23 09:31 12/06/23 12/07/23 12/07/23 22:59 06:59 14:59 Intake Total 998.808 / 468.154 2161.925 / 2645.733 284.32 / 284.32 Balance 998.808 / 742.720 2860.925 / 2645.733 284.32 / 284.32 Weight last 48 hrs Weight 67.5 kg Weight 67.5 kg Weight 74.389 kg Physical Exam 2 Narrative: She is alert awake oriented x 3, not in acute distress but seems anxious Chest clear to auscultation bilaterally Cardiovascular normal heart sounds Abdomen soft nontender nondistended normal bowel sounds Extremities trace edema present bilateral lower extremities Urinary Catheter Management: [facility]: Cath Placed During This Visit: yes Reason for Continuing Indwelling Catheter: Accurate Measurement of Urinary Output in Critically Ill Patients Urinary Catheter Date of Insertion: 12/06/23 Urinary Catheter Time of Insertion: 16:00 Data 12/07/23 05:10 12/07/23 05:10 A&P Assessment and plan (1) Symptomatic sinus bradycardia: (2) ADRIANA (acute kidney injury): (3) Hyperlipidemia: Qualifiers: Hyperlipidemia type: mixed hyperlipidemia Qualified Code(s): E78.2 - Mixed hyperlipidemia (4) Hypertension: Qualifiers: Hypertension type: primary hypertension Qualified Code(s): I10 - Essential (primary) hypertension (5) Liver cirrhosis: Qualifiers: Hepatic cirrhosis type: unspecified hepatic cirrhosis Ascites presence: unspecified Qualified Code(s): K74.60 - Unspecified cirrhosis of liver (6) Asthma: Plan Erin Dickens is a 73 year old female with past medical history of hypertension, hyperlipidemia, asthma, type 2 diabetes mellitus, GERD, neuropathy, marked liver cirrhosis was brought in by air ambulance for bradycardia with heart rate in 30s, had transcutaneous pacing while transport and found to have ADRIANA with potassium 5.3, creatinine of 1.6, baseline creatinine 1.1 Symptomatic bradycardia- Cardiology consulted in ER. Follow-up for further recommendations Plan to continue epinephrine drip, monitor in ICU and transvenous pacing if persistent bradycardia. Rule out ACS, first set of troponin 10, follow-up 2 hours and 6-hour troponins. Hold off on verapamil, Lasix and potassium for now Continue aspirin and Lipitor ADRIANA-likely secondary to dehydration Received 2 L normal saline in ER Will monitor labs Will continue IV fluids normal saline at 80 mL/h Asthma-DuoNebs every 6 hours as needed, montelukast 10 mg daily Neuropathy-continue gabapentin GERD-continue omeprazole Diet n.p.o. 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 She is off epinephrine gtt. with heart rate maintaining in 80s. Asymptomatic Will continue to monitor. Follow-up cardiology recommendations. Hyperkalemia being treated with p.o. Kayexalate, calcium gluconate 1 g IV Repeat potassium at 1 PM. Also started on p.o. lactulose 30 g 3 times daily. Will resume home dose of spironolactone and rifaximin. UA positive for UTI with WBCs more than 100. Started on IV ceftriaxone 1 g daily. Will follow-up urine culture Attestations 2 Medical Necessity Statement*: She needs continued hospitalization crossing 2 midnights for management of symptomatic bradycardia and ADRIANA and hyperkalemia with IV fluids and epinephrine drip versus transvenous pacing if persistent Time Spent in Patient Care: 25 minutes Coding Level of Care Code Acute Code for Chg Fwd Diagnoses Symptomatic sinus bradycardia R00.1 ADRIANA (acute kidney injury) N17.9 Mixed hyperlipidemia E78.2 Hyperlipidemia type: mixed hyperlipidemia Primary hypertension I10 Hypertension type: primary hypertension Hepatic cirrhosis, unspecified hepatic cirrhosis type, unspecified whether ascites present K74.60 Hepatic cirrhosis type: unspecified hepatic cirrhosis Ascites presence: unspecified Asthma J45.909 Time Spent (min) 25
[2023-12-07] MEDS: cefTRIAXone 1,000 mg SDV 1000 MG IVP (13:47)
[2023-12-07 14:52] LABS: Potassium 4.2 mmol/L (3.5-5.1)
[2023-12-07 17:25] LABS: Potassium 3.7 mmol/L (3.5-5.1)
[2023-12-07] MEDS: rifaximin 200 mg Tablet 600 MG PO (17:48)
[2023-12-07] MEDS: atorvastatin 40 mg Tablet 20 MG PO (20:24)
[2023-12-07] MEDS: gabapentin 300 mg Capsule PO (20:24)
[2023-12-08] VITALS (26 sets, daily range): BP systolic 115–168; BP diastolic 47–71; PULSE 67–78; RESP 16–29; TEMP 36.8–37.7; O2SAT 89–99; BMI 25.3
[2023-12-08] MEDS: sodium chloride 0.9% 1,000 ML 80 ML IV (04:12)
[2023-12-08] MEDS: heparin 5,000 unit/mL INJ 1 mL 5000 UNIT SUBCUT (04:19)
[2023-12-08 04:40] LABS: Basophils % 0.6 %; Eosinophils # 0.1 10^3/uL (0.0-0.8); Eosinophils % 2.9 %; Hematocrit 27.5 % (36-47); Lymphocytes # 0.8 10^3/uL (0.8-4.8); Lymphocytes % 24.4 %; Mean Corpuscular HGB Conc 30.5 g/dL (30-55); Mean Corpuscular Hemoglobin 26.4 pg (27-33); Mean Corpuscular Volume 86.5 fl (85-98); Monocytes # 0.4 10^3/uL (0.2-0.9); Monocytes % 13.3 %; Neutrophils % 58.5 %; Nucleated Red Blood Cells % 0 %; Platelet Count 66 10^3/cmm (157-399); Red Blood Count 3.18 10^6/uL (3.85-5.65); Red Cell Distribution Width 17.2 % (12.1-15.1); White Blood Count 3.08 10^3/uL (3.29-11.43)
[2023-12-08 04:58] LABS: Alanine Aminotransferase 22 U/L (0-33); Albumin Level 2.8 g/dL (3.5-5.2); Alkaline Phosphatase 123 U/L (35-105); Anion Gap 12.6 (5-19); Aspartate Amino Transferase 36 U/L (0-32); Blood Urea Nitrogen 15 mg/dL (8-23); Calcium 7.9 mg/dL (8.5-10.5); Carbon Dioxide 17 mmol/L (22-29); Chloride 114 mmol/L (98-107); Creatinine Clr Calc Pharmacy 45.9035; Globulin 2.7 g/dL (1.3-4.6); Glucose 85 mg/dL (65-115); Magnesium 1.7 mg/dL (1.7-2.3); Osmolality Calculated 290 mOsm/kg (285-295); Phosphorus 2.2 mg/dL (2.5-4.5); Potassium 3.6 mmol/L (3.5-5.1); Sodium 140 mmol/L (136-145); Total Bilirubin 0.6 mg/dL (0.15-1.2); Total Protein 5.5 g/dL (6.6-8.7)
--- NOTE | 2023-12-08 06:49 | P.PN_ITS ---
Vitals/I&O/Wt Last Vital Signs Temp 99.9 F H 12/08/23 04:00 Pulse 67 12/08/23 05:27 Resp 24 H 12/08/23 04:00 BP 116/47 12/08/23 04:00 Pulse Ox 90 12/08/23 04:00 O2 Del Method Room Air 12/08/23 04:00 12/07/23 12/07/23 12/08/23 14:59 22:59 06:59 Intake Total 284.32 / 284.32 1360 / 1644.32 Output Total 1500 / 1500 1400 / 2900 Balance 284.32 / 284.32 -140 / 144.32 -1400 / -1255.68 Weight last 48 hrs Weight 147 lb 13 oz Weight 148 lb 12.992 oz Weight 148 lb 12.992 oz Weight 164 lb Physical Exam 2 Urinary Catheter Management: [facility]: Cath Placed During This Visit: yes Reason for Continuing Indwelling Catheter: Accurate Measurement of Urinary Output in Critically Ill Patients Urinary Catheter Date of Insertion: 12/06/23 Urinary Catheter Time of Insertion: 16:00 Data 12/08/23 03:59 12/08/23 03:59 Coding Level of Care Code Acute Code for Chg Fwd
[2023-12-08] MEDS: potassium phosphate (mEq K) 40 MEQ in sodium chloride 0.9% (100 ml) 100 ML 27.27 MEQ IV (08:27)
[2023-12-08] MEDS: montelukast sodium 10 mg Tablet PO (08:44)
[2023-12-08] MEDS: pantoprazole DR 40 mg Tablet PO (08:45)
[2023-12-08] MEDS: magnesium oxide 400 mg tablet PO (08:45)
[2023-12-08] MEDS: aspirin 81 mg EC Tablet PO (08:45)
[2023-12-08] MEDS: spironolactone 25 mg Tablet PO (08:45)
[2023-12-08] MEDS: potassium chloride ER 20 mEq Tablet 40 MEQ PO (08:45)
[2023-12-08] MEDS: rifaximin 200 mg Tablet 600 MG PO (08:45)
--- NOTE | 2023-12-08 10:45 | PM.DCS ---
Discharge Providers Date of Admission: 12/06/23 16:54 Date of Discharge: December 08, 2023 Attending Provider at Admission: Sophy Wren MD Attending Provider at Discharge: Sophy Wren MD Primary Care Provider: Brandy Glasgow Diagnoses at Discharge Discharge Diagnosis (1) Bradycardia: Status: Acute (2) Type 2 diabetes mellitus: Status: Acute (3) Liver cirrhosis: Status: Acute Qualifiers: Hepatic cirrhosis type: unspecified hepatic cirrhosis Ascites presence: unspecified Qualified Code(s): K74.60 - Unspecified cirrhosis of liver (4) ADRIANA (acute kidney injury): Status: Acute Reason for Visit Reason for Visit: cele air1 Brief History: Erin Dickens is a 73 year old female with past medical history of hypertension, hyperlipidemia, asthma, type 2 diabetes mellitus, GERD, neuropathy, marked liver cirrhosis was brought in by air ambulance for bradycardia. She is a poor historian and at the bedside. As per the she was feeling dizzy but did not fall or lose consciousness and hence called EMS, when they arrived her heart rate was in 30s, though air EMS started externally pacing her. Heart rate did not improve when she was hypotensive and hence was started on epinephrine drip. Heart rate currently in 70 to 80s. Blood pressure improved to 104/57 on arrival in the ER. She is still on epinephrine drip. But reports feeling better as compared to on arrival in the ER. and patient denies any history of similar complaints in the past. She is on verapamil for blood pressure control. Denies any complaint of fever, cold, cough, nausea/vomiting, diarrhea, chest pain, palpitations or urinary complaints. She was all well until this morning. Cardiology consulted in ER. As per recommendation verapamil discontinued and plan to continue epinephrine drip, monitor in ICU and transvenous pacing if persistent bradycardia Hospital Course Hospital Course She was monitored in ICU on epinephrine drip and her heart rate was in 70 to 80s. Blood pressure stayed stable. She was also found to be confused initially on admission and hence ammonia level checked was 126. She was started on p.o. lactulose but did not tolerate well, with just 1 dose she had 4 loose bowel movements hence lactulose discontinued and she was started on her home medications rifaximin and spironolactone. She is doing well this morning, has been off epinephrine drip for 24 hours and has been maintaining heart rate in 80s with stable blood pressure of 118/69. Will discharge her home with Holter monitor for 30 days to be followed up in cardiology clinic in 2 weeks or early if symptomatic. She was also found to have a UTI and was started on IV ceftriaxone. Urine culture still pending. To be followed up with PCP as outpatient. Will discharge on p.o. Levaquin 750 mg for 7 days. Continue aspirin. Will continue to hold verapamil, since blood pressure is well-controlled and due to admission diagnosis of symptomatic sinus bradycardia. Physical Exam Narrative: She is alert awake oriented x 3, not in acute distress but seems anxious Chest clear to auscultation bilaterally Cardiovascular normal heart sounds Abdomen soft nontender nondistended normal bowel sounds Extremities trace edema present bilateral lower extremities Urinary Catheter Management: Hopkins: Cath Placed During This Visit: yes Reason for Continuing Indwelling Catheter: Accurate Measurement of Urinary Output in Critically Ill Patients Urinary Catheter Date of Insertion: 12/06/23 Urinary Catheter Time of Insertion: 16:00 Discharge Data Studies Completed and Pending Completed Studies During Hospitalization Category Date Time Status CT abdomen pelvis wo con [id number] Stat Cat Scan 12/06/23 15:14 Completed XR chest 1V portable [id number] Stat Exams 12/06/23 14:18 Completed CV. echo complete* [id number] Stat Ultrasound 12/06/23 17:09 Completed Pending at discharge Category Date Time Status Complete Blood Count w/Auto AM LABS Lab 12/09/23 04:00 Ordered Comprehensive Metabolic Panel AM LABS Lab 12/09/23 04:00 Ordered Magnesium AM LABS Lab 12/09/23 04:00 Ordered Phosphorus AM LABS Lab 12/09/23 04:00 Ordered Urine Culture Routine Lab 12/06/23 05:55 Received Radiology Impressions Chest X-Ray 12/06/23 14:18 IMPRESSION: No acute findings. Abdomen/Pelvis CT 12/06/23 15:14 IMPRESSION: 1. Hepatic cirrhosis with mesenteric edema and minimal ascites 2. Diffuse colon wall thickening which is favored to be related to portal venous hypertension Laboratory Results WBC 3.08 10^3/uL (3.29-11.43) L 12/08/23 03:59 RBC 3.18 10^6/uL (3.85-5.65) L 12/08/23 03:59 Hgb 8.40 g/dL (11.27-16.99) L 12/08/23 03:59 Hct 27.5 % (36-47) L 12/08/23 03:59 MCV 86.5 fl (85-98) 12/08/23 03:59 MCH 26.4 pg (27-33) L 12/08/23 03:59 MCHC 30.5 g/dL (30-55) 12/08/23 03:59 RDW 17.2 % (12.1-15.1) H 12/08/23 03:59 Plt Count 66 10^3/cmm (157-399) L D 12/08/23 03:59 MPV 10.0 fL (7.4-10.4) 12/08/23 03:59 Neut % (Auto) 58.5 % 12/08/23 03:59 Lymph % (Auto) 24.4 % 12/08/23 03:59 [place] % (Auto) 13.3 % 12/08/23 03:59 Eos % (Auto) 2.9 % 12/08/23 03:59 Baso % (Auto) 0.6 % 12/08/23 03:59 Neut # (Auto) 1.80 10^3/uL (1.8-7.7) 12/08/23 03:59 Lymph # (Auto) 0.8 10^3/uL (0.8-4.8) 12/08/23 03:59 [place] # (Auto) 0.4 10^3/uL (0.2-0.9) 12/08/23 03:59 Eos # (Auto) 0.1 10^3/uL (0.0-0.8) 12/08/23 03:59 Baso # (Auto) 0.0 10^3/uL (0.0-0.1) 12/08/23 03:59 Nucleated RBC % (auto) 0 % 12/08/23 03:59 Nucleated RBCs # 0.0 /100WBC 12/08/23 03:59 Sodium 140 mmol/L (136-145) 12/08/23 03:59 Potassium 3.6 mmol/L (3.5-5.1) 12/08/23 03:59 Chloride 114 mmol/L (98-107) H 12/08/23 03:59 Carbon Dioxide 17 mmol/L (22-29) L 12/08/23 03:59 Anion Gap 12.6 (5-19) 12/08/23 03:59 BUN 15 mg/dL (8-23) 12/08/23 03:59 Creatinine 1.0 mg/dL (0.5-0.9) H 12/08/23 03:59 GFR Calculation Not Reportable 12/08/23 03:59 Glucose 85 mg/dL (65-115) 12/08/23 03:59 POC Glucose 163 mg/dL (70-110) H 12/06/23 18:32 Calculated Osmolality 290 mOsm/kg (285-295) 12/08/23 03:59 Calcium 7.9 mg/dL (8.5-10.5) L 12/08/23 03:59 Phosphorus 2.2 mg/dL (2.5-4.5) L 12/08/23 03:59 Magnesium 1.7 mg/dL (1.7-2.3) 12/08/23 03:59 Total Bilirubin 0.6 mg/dL (0.15-1.2) 12/08/23 03:59 AST 36 U/L (0-32) H 12/08/23 03:59 ALT 22 U/L (0-33) 12/08/23 03:59 Alkaline Phosphatase 123 U/L (35-105) H 12/08/23 03:59 Ammonia 126 umol/L (11-51) H 12/06/23 21:27 Troponin T Baseline 10 ng/L (0-10) 12/06/23 14:43 Troponin T 120 Minute 11.03 ng/L (0-10) H 12/06/23 16:51 Delta Troponin T 1.03 ABS# (0-10) 12/06/23 16:51 Troponin T Hi Sens 6Hr 12.96 ng/L (0-10) H 12/06/23 21:27 Troponin T Hi Sens 6Hr Delta 2.96 ng/L (0-12) 12/06/23 21:27 NT-Pro-B Natriuret Pep 1053 pg/mL (0-450) H 12/07/23 05:10 Total Protein 5.5 g/dL (6.6-8.7) L 12/08/23 03:59 Albumin 2.8 g/dL (3.5-5.2) L 12/08/23 03:59 Globulin 2.7 g/dL (1.3-4.6) 12/08/23 03:59 Lipase 115 U/L (13-60) H 12/06/23 14:43 TSH 3.25 uIU/mL (0.27-4.20) 12/07/23 05:10 Urine Color Yellow (Yellow) 12/06/23 05:55 Urine Appearance Clear (CLEAR) 12/06/23 05:55 Urine pH 5.0 (5-7) 12/06/23 05:55 Ur Specific Barnard 1.015 (1.005-1.030) 12/06/23 05:55 Urine Protein Negative (Negative) 12/06/23 05:55 Urine Glucose (UA) Negative (Normal) 12/06/23 05:55 Urine Ketones Negative (Negative) 12/06/23 05:55 Urine Blood 2+ (Negative) A 12/06/23 05:55 Urine Nitrate Negative (Negative) 12/06/23 05:55 Urine Bilirubin Negative (Negative) 12/06/23 05:55 Urine Urobilinogen 0.2 mg/dL (Negative) 12/06/23 05:55 Ur Leukocyte Esterase 2+ (Negative) A 12/06/23 05:55 Urine RBC 11-20 /hpf (0-2) H 12/06/23 05:55 Urine WBC >100 /hpf (0-5) H 12/06/23 05:55 Ur Squamous Epith Cells 0-5 /hpf (0-5) 12/06/23 05:55 Amorphous Sediment Not Reportable 12/06/23 05:55 Urine Bacteria Trace /hpf (NONE) 12/06/23 05:55 Hyaline Casts 12.81 /lpf 12/06/23 05:55 Coronavirus 229E (PCR) Not detected (NOT DETECT) 12/07/23 01:10 SARS-CoV-2 (PCR) Not detected (NOT DETECT) 12/07/23 01:10 Vitals Last Vital Signs Temp 98.3 F 12/08/23 09:00 Pulse 72 12/08/23 09:00 Resp 23 H 12/08/23 09:00 BP 118/69 12/08/23 09:00 Pulse Ox 98 12/08/23 09:00 O2 Del Method Room Air 12/08/23 09:00 Discharge Plan Discharge Patient Disposition: Home Condition: Stable Prescriptions: New atorvastatin 40 mg Tablet 20 mg PO BEDTIME 30 Days Qty: 30 0RF spironolactone 25 mg Tablet 25 mg PO DAILY 15 Days Qty: 15 0RF Xifaxan 200 mg Tablet 600 mg PO BID 15 Days Qty: 90 0RF levofloxacin 750 mg tablet 750 mg PO DAILY 7 Days Qty: 7 0RF Continued furosemide 20 mg tablet 20 mg PO DAILY montelukast 10 mg tablet 10 mg PO DAILY Qty: 90 1RF albuterol sulfate 2.5 mg /3 mL (0.083 %) solution for nebulization 2.5 mg inhalation Q6H PRN (Reason: Shortness Of Breath) aspirin 81 mg tablet,delayed release (DR/EC) 81 mg PO DAILY gabapentin 300 mg capsule 300 mg PO BEDTIME omeprazole 20 mg capsule,delayed release(DR/EC) 20 mg PO PRN loratadine 10 mg tablet 10 mg PO DAILY potassium chloride [K-Tab] 20 mEq tablet extended release 40 meq PO BID Discontinued verapamil 120 mg tablet extended release 120 mg PO DAILY No Action (DME) diabetic shoes with 3 inserts [id number] See Rx Instructions .Route .MEDSUPPLY Qty: 1 0RF Rx Instructions: As directed (DME) boot See Rx Instructions .Route .MEDSUPPLY Qty: 1 0RF Rx Instructions: As directed (DME) ASO to the Left See Rx Instructions .Route .MEDSUPPLY Qty: 1 0RF Rx Instructions: As directed Discharge Orders: Discharge Order (Routine); Ordered 12/08/23 Ordered By: Sophy Wren Other Ambulatory Orders: ECG holter monitor 15 Days (Routine) Timeframe: 1 Month Facility: [facility] - Location: Radiology Ordered By: Sophy Wren Referrals: Brandy Glasgow [Primary Care Provider] - Abhijit Kumar M.D [Physician] - (Symptomatic sinus bradycardia and Holter monitor) Discharge Diet: Cardiac Discharge Activity: Increase activity as tolerated Patient Instructions: Opioid Safety Plan of Treatment: Need to wear Holter monitor starting today for 30 days and follow-up in cardiology clinic in 2 weeks or early if symptomatic Discharge Attestations Time Spent in Discharge Care*: less than 30 min Quality Metrics Clinical Quality Measures [ No reported AMI, CVA or VTE this stay] Coding Level of Care Code Acute Code for Chg Fwd Diagnoses Bradycardia R00.1 Type 2 diabetes mellitus E11.9 Hepatic cirrhosis, unspecified hepatic cirrhosis type, unspecified whether ascites present K74.60 Hepatic cirrhosis type: unspecified hepatic cirrhosis Ascites presence: unspecified ADRIANA (acute kidney injury) N17.9 Time Spent (min) 20
--- NOTE | 2023-12-08 11:13 | PC.SOCIAL ---
IMM Updated IMM dated and initialed, copy placed in chart and given to patient.
--- NOTE | 2023-12-08 11:30 | PC.NURSE ---
Prescriptions called into [facility] in [place].
[2023-12-08] MEDS: cefTRIAXone 1,000 mg SDV 1000 MG IVP (11:51)
--- NOTE | 2023-12-08 12:39 | PC.NURSE ---
Discharge instructions given to patient's and . IVs removed. Prescriptions sent to [facility]. Patient to have event monitor placed upon discharge at heart care services.
--- NOTE | 2023-12-08 13:11 | PC.NURSE ---
Patient discharged. Patient wheeled to heart care services by this nurse, accompanied by . Patient to be wheeled out by heart care services staff.
== END 2023-12-08 13:05 | disposition home or self-care (01) | DRG 309 ==
LOC: ER 16:49 → ICU 16:54
PROVIDERS: Internal Medicine; Admitting Provider Internal Medicine; Emergency Provider Emergency Medicine; PCP Nurse Practitioner Family; Visit Provider Internal Medicine
DX: R00.1 Bradycardia, unspecified (principal); N17.9 Acute kidney failure, unspecified; N39.0 Urinary tract infection, site not specified; E78.2 Mixed hyperlipidemia; I10 Essential (primary) hypertension; K74.60 Unspecified cirrhosis of liver; J45.909 Unspecified asthma, uncomplicated; K21.9 Gastro-esophageal reflux disease without esophagitis; E86.0 Dehydration; E11.40 Type 2 diabetes mellitus with diabetic neuropathy, unspecified; E87.5 Hyperkalemia; I08.1 Rheumatic disorders of both mitral and tricuspid valves; I27.20 Pulmonary hypertension, unspecified; Z79.899 Other long term (current) drug therapy; Z79.82 Long term (current) use of aspirin; Z85.3 Personal history of malignant neoplasm of breast; Z90.12 Acquired absence of left breast and nipple
CPT/HCPCS: 36415; 36416; 51702; 71045; 74176; 80053; 81001; 82140; 82962; 83690; 83735; 83880; 84100; 84132; 84443; 84484; 85025; 87086; 87635; 93005; 93306; 94640; 94664; 96365; 96366; 96372; 96374; 96375; 96376; 99291; J0171; J0612; J0696; J1644; J2270; J7030; J7040; J7050

== ENCOUNTER → 2023-12-18 12:55 | Outpatient (BNVA) | payer MEDICARE, OTHER, SELFPAY | PROVIDERS: PCP Nurse Practitioner Family; Visit Provider Nurse Practitioner Family | DX: Z09 Encounter for follow-up examination after completed treatment for conditions other than malignant neoplasm (principal) | CPT/HCPCS: 99213 ==

== ENCOUNTER → 2024-03-05 12:12 | Outpatient (BNVA) | payer MEDICARE, OTHER, SELFPAY | PROVIDERS: PCP Nurse Practitioner Family; Visit Provider Internal Medicine | DX: R00.1 Bradycardia, unspecified (principal) | CPT/HCPCS: 99214 ==

== ENCOUNTER → 2024-06-06 11:24 | Outpatient (BNVA) | payer MEDICARE, OTHER, SELFPAY | PROVIDERS: PCP Nurse Practitioner Family; Visit Provider Family Medicine | DX: K74.60 Unspecified cirrhosis of liver (principal) | CPT/HCPCS: 80053; 85025 ==

== ENCOUNTER → 2024-07-15 11:30 | Outpatient (BNVA) | payer MEDICARE, OTHER, SELFPAY | PROVIDERS: PCP Nurse Practitioner Family; Visit Provider Nurse Practitioner Family | DX: L57.0 Actinic keratosis (principal); L81.4 Other melanin hyperpigmentation; L57.8 Other skin changes due to chronic exposure to nonionizing radiation; X32.XXXA Exposure to sunlight, initial encounter; D48.5 Neoplasm of uncertain behavior of skin; L56.8 Other specified acute skin changes due to ultraviolet radiation | CPT/HCPCS: 11102; 17000; 99214 ==

== ENCOUNTER → 2024-09-09 09:38 | Outpatient (BNVA) | payer MEDICARE, OTHER, SELFPAY | PROVIDERS: PCP Nurse Practitioner Family; Visit Provider Family Medicine | DX: E87.6 Hypokalemia (principal); D50.9 Iron deficiency anemia, unspecified | CPT/HCPCS: 80053; 85025 ==

== ENCOUNTER 2024-09-12 11:08 | Emergency (ER) | payer MEDICARE, OTHER, SELFPAY ==
[2024-09-12] VITALS (8 sets, daily range): BP systolic 120–144; BP diastolic 48–70; PULSE 65–81; RESP 17; TEMP 36.6; O2SAT 95–98; BMI 30.1
--- OUTSIDE RECORDS SUMMARY | 2024-09-12 08:54 | XMS_ITS | Continuity of Care Document ---
Author Name [facility] Organization [facility] Care Team Providers Care Tool Design Drafter Name Role Phone [facility] Unavailable Unavailable Problems Combined list of problems from Department of Defense and Veterans Affairs facilities. It does not include entries that were removed or entered in error. Problem Status Onset Date Problem Type Date of Resolution Comme nts Source Training And Self-Care Skills Inactive 01/25/2013 Condition [facility] Patient Education - Medication Active Condition [facility] Medications Combined list of outpatient medications from Department of Defense and Veterans Affairs facilities.Medications provided include 1) outpatient medications from the last 15 months, and 2) patient-reported medications. Medication Details Route Status Patient Instructions Prescription Expires Prescription Number Last Dispense Date Ordering Provider Order Date Order Qty Source ALBUTEROL SULFATE HFA (albuterol sulfate), 90 MCG, HFA AER AD, INHALATION, TEVA [place], 8.5 g CANISTER Active [id number] 4 2023 8.5 Pharmac y Data Transac tion Service Facilit y ALBUTEROL SULFATE HFA (albuterol sulfate), 90 MCG, HFA AER AD, INHALATION, TEVA [place], 8.5 g CANISTER Active [id number] 4 2023 8.5 Pharmac y Data Transac tion Service Facilit y DOXYCYCLINE MONOHYDRATE (doxycyclin e monohydrate ), 100 MG, CAPSULE, ORAL, ZYDUS PHARMACEU, 50 ea. BOTTLE Active [id number] 4 2023 14 Pharmac y Data Transac tion Service Facilit y FUROSEMIDE (furosemide ), 20 MG, TABLET, ORAL, AVKARE, 1000 ea. BOTTLE Active [id number] 4 2023 90 Pharmac y Data Transac tion Service Facilit y FUROSEMIDE (furosemide ), 40 MG, TABLET, ORAL, RISING PHARM, 1000 ea. BOTTLE Cancele d [id number] : 2023 0 Pharmac y Data Transac tion Service Facilit y FUROSEMIDE (furosemide ), 40 MG, TABLET, ORAL, RISING PHARM, 1000 ea. BOTTLE Active [id number] 4 2023 3 Pharmac y Data Transac tion Service Facilit y GABAPENTIN (gabapentin ), 300 MG, CAPSULE, ORAL, XLCARE PHARMACE, 270 ea. BOTTLE Active [id number] 4 2023 90 Pharmac y Data Transac tion Service Facilit y GABAPENTIN (gabapentin ), 300 MG, CAPSULE, ORAL, XLCARE PHARMACE, 270 ea. BOTTLE Cancele d [id number] : 2023 0 Pharmac y Data Transac tion Service Facilit y LORATADINE (LORATADINE ), 10MG, TABLET, ORAL, PERRIGO CO., 300 ea. BOTTLE Active [id number] 4 2023 90 Pharmac y Data Transac tion Service Facilit y MONTELUKAST SODIUM (montelukas t sodium), 10 MG, TABLET, ORAL, XLCARE PHARMACE, 90 ea. BOTTLE Active [id number] 4 2023 90 Pharmac y Data Transac tion Service Facilit y NITROFURANT OIN MONO-MACRO (NITROFURAN TOIN MONOHYD/M-C RYST), 100 MG, CAPSULE, ORAL, ALVOGEN INC, 100 ea. BOTTLE Cancele d [id number] : 2023 0 Pharmac y Data Transac tion Service Facilit y Allergies, Adverse Reactions, Alerts Combined list of allergies from Department of Defense and Veterans Affairs facilities. It does not include entries that were removed or entered in error. Substance Category Reaction Severity Reaction type Status Date Reported Comments Source No Known Allergies Drug allergy (disorder) active 03/19/2007 [place], [place] Immunizations Combined list of available immunizations from the Department of Defense and Veterans Affairs facilities. Immunization Series Date Given Administered By Site Reaction Lot Number CVX Code Drug Manufacturing Test Engineer Status Comments Source Influenza, high dose seasonal 2016 SURESH, () Not Given Influenza , high dose seasonal DoD Encounters Combined list of: 1) Encounters from Department of Veterans Affairs facilities going backup to the last 18 months, not all [place] inpatient encounters are included; 2) Encounters from the Department of Defense facilities going backup to 280 months. Location Location Details Encounter Type Encounter Number Reason For Visit Attending Provider ADM Date DC Date Status Disposition Source [facility] [place]) OUTPATIENT [id number] SELF-CA RE CLASS MADANIDRIS 01/23 [facility]ased w[facility] Limitations [facility] [place] [place] [place] [place] OUTPATIENT [id number] Notes Entered by: AUSTIN ALEJANDRO 23 Jan 2013 1604 ------- ------- ------- ------- -- Self care class BENJAMÍN GONZALEZ 01/23 Released w/o Limitations [facility] [place] [place] [place](COVID 19) OUTPATIENT [id number] Notes Entered by: GHISLAINE RUIZ 31 Jul 2019 1057 ------- ------- ------- ------- -- LOUIE JAMES 07/30 [facility] Limitations [facility] [place] [place] D [facility] Social History Combined list of available smoking, tobacco, and other social history from Department of Defense and Veterans Affairs facilities. Social History Type Response Date Comment Sour e This section is an empty social history section. DoD
--- OUTSIDE RECORDS SUMMARY | 2024-09-12 11:15 | XMS_ITS | Encounter Summary ---
Author Organization [facility] Address [address] [place] [address] Care Team Providers Care House Player Name Role Phone Roosevelt Valentine MD Primary Care Provider [phone] Encounter Details Date Type Department Care Team (Latest Contact Info) Description 02/06/2002 Outpatient Historical [facility] Medicine [address] [phone] Rah Mendoza MD [address] [place] [phone] MASTODYNIA (Primary Dx); SHOULDER REGION DIS NEC; HYPERLIPIDEMIA NEC/NOS; Gynecologic examination Social History Tobacco Use Types Packs/Day Years Used Date Smoking Tobacco: Never Assessed Comments Unknown Sex and Gender Information Value Date Recorded Sex Assigned at Not on file 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
--- OUTSIDE RECORDS SUMMARY | 2024-09-12 11:15 | XMS_ITS | Encounter Summary ---
Author Organization [facility] Address [address] [place] [address] Care Team Providers Care Patent Drafter Name Role Phone Roosevelt Valentine MD Primary Care Provider Encounter Details Date Type Department Care Team (Latest Contact Info) Description 12/15/1998 Outpatient Historical [facility] Medicine [place] [address] [phone] Rah Mendoza MD [address] [place] [phone] Enthesopathy of unspecified site (Primary Dx); Unspecified asthma(493.90); Actinic keratosis Social History Tobacco Use Types Packs/Day Years Used Date Smoking Tobacco: Never Assessed Comments Unknown Sex and Gender Information Value Date Recorded Sex Assigned at Not on file 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
--- OUTSIDE RECORDS SUMMARY | 2024-09-12 11:15 | XMS_ITS | Clinical Summary ---
Author Organization [facility] Address [address] [place] [address] Phone Care Team Providers Care Tool Grinder Set Up Operator Gear Name Role Phone Roosevelt Valentine MD Primary Care Provider [phone] Allergies No known active allergies Medications metFORMIN (GLUCOPHAGE) 500 mg tablet Take 500 mg by mouth 2 times daily with meals. Active losartan (COZAAR) 100 mg tablet Take 100 mg by mouth daily. Active amLODIPine (NORVASC) 10 mg tablet Take 10 mg by mouth daily. Active hydrochlorothia zide 25 mg tablet Take 25 mg by mouth daily. Active ezetimibe (ZETIA) 10 mg tablet Take 10 mg by mouth Daily LATE. Active montelukast (SINGULAIR) 10 mg tablet Take 10 mg by mouth daily at bedtime. Active calcium-vitamin D3 (CALTRATE 600+D) 600 mg(1,500mg) -200 unit Tablet Take 1 Tablet by mouth 2 times daily. Active cholecalciferol 50,000 unit Capsule Take by mouth. Activ e omeprazole (PRILOSEC) 20 mg Capsule, Delayed Release(E.C.) Take 20 mg by mouth daily. Active olopatadine (PATANOL) 0.1 % solution Administer 1 Drop in both eyes 2 times daily. Active aspirin (ECOTRIN EC) 81 mg Tablet, Delayed Release (E.C.) Take 81 mg by mouth daily. Active gabapentin (NEURONTIN) 600 mg tablet Take 600 mg by mouth 3 times daily. Active albuterol HFA 90 mcg inhaler Take 2 Puffs by inhalation every 6 hours as needed for Shortness of Breath. 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 Gender Identity Not on file Sexual Orientation Not on file Last Filed Vital Signs Vital Sign Reading Time Taken Comments Blood Pressure 114/56 07/19/2015 9:59 PM CDT Pulse - - Temperature 37.2 C (98.9 F) 07/19/2015 9:59 PM CDT Respiratory Rate 18 07/19/2015 9:59 PM CDT Oxygen Saturation 94% 07/19/2015 9:59 PM CDT Inhaled Oxygen Concentration - - Weight 63 kg (139 lb) 07/19/2015 8:12 PM CDT Height 149.9 cm (4' 11 ) 07/19/2015 8:12 PM CDT Body Mass Index 28.07 07/19/2015 8:12 PM CDT Plan of Treatment Health Maintenance Due Date Last Done Comments DTAP/TDAP/TD VACCINES (1 - Tdap) 1967 PNEUMOCOCCAL VACCINE 50+ YEARS (1 of 1 - PCV) 03/17/18 99 ZOSTER VACCINE (1 of 2) 1998 OSTEOPOROSIS SCREENING 2013 RSV VACCINE (60+ or ) (1 - 1-dose 75+ series) 2023 INFLUENZA VACCINE (#1) 2024 02/19/2003 Insurance MEDICARE PART A AND B [facility] Care Teams Tool Grinder Set Up Operator Gear Relationship Specialty Start Date End Date Roosevelt Valentine MD PCP - General Family Practice 07/19/15
--- OUTSIDE RECORDS SUMMARY | 2024-09-12 11:15 | XMS_ITS | Encounter Summary ---
Author Organization [facility] Address [address] [place] [address] Care Team Providers Care Rubber Mold Maker Name Role Phone Roosevelt Valentine MD Primary Care Provider [phone] Encounter Details Date Type Department Care Team (Latest Contact Info) Description 01/18/1999 Outpatient Historical [facility] [place] [address] [phone] Rah Mendoza MD [address] [place] [phone] Pure hypercholesterolem (Primary Dx); Dietary surveil/counseling specialist Social History Tobacco Use Types Packs/Day Years Used Date Smoking Tobacco: Never Assessed Comments Unknown Sex and Gender Information Value Date Recorded Sex Assigned at Not on file 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
--- OUTSIDE RECORDS SUMMARY | 2024-09-12 11:15 | XMS_ITS | Encounter Summary ---
Author Organization [facility] Address [address] [place] [address] Care Team Providers Care Multifocal Button Inspector Name Role Phone Roosevelt Valentine MD Primary Care Provider [phone] Encounter Details Date Type Department Care Team (Latest Contact Info) Description 03/10/2000 Outpatient Historical [address] [address] Noelle Saravia MD [address] [place] [address], [address] Pure hypercholesterolem (Primary Dx); Encounter for long-term (current) use of other medications Social History Tobacco Use Types Packs/Day Years Used Date Smoking Tobacco: Never Assessed Comments Unknown Sex and Gender Information Value Date Recorded Sex Assigned at Not on file 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
--- OUTSIDE RECORDS SUMMARY | 2024-09-12 11:15 | XMS_ITS | Encounter Summary ---
Author Organization [facility] Address [address] [place] [address] Care Team Providers Care Solid Waste Technician Name Role Phone Roosevelt Valentine MD Primary Care Provider [phone] Encounter Details Date Type Department Care Team (Late st Contact Info) Description 10/02/2002 Outpatient Historical [facility] Family Medicine [address] [address] Chele Kirby, DOG SITTER [address] [place] [address] Social History Tobacco Use Types Packs/Day Years Used Date Smoking Tobacco: Never Assessed Comments Unknown Sex and Gender Information Value Date Recorded Sex Assigned at Not on file Legal Sex Female 2:53 AM CLOTH GRADER SUPERVISOR Gender Identity Not on file Sexual Orientation Not on file documented as of this encounter Plan of Treatment Not on file documented as of this encounter Visit Diagnoses Not on filedocumented in this encounter Care Teams Solid Waste Technician Relationship Specialty Start Date End Date Roosevelt Valentine MD PCP - General Family Practice 07/19/15 documented as of this encounter
--- OUTSIDE RECORDS SUMMARY | 2024-09-12 11:15 | XMS_ITS | Encounter Summary ---
Author Organization [facility] Address [address] [place] [address] Care Team Providers Care Sales And Service Associate Name Role Phone Roosevelt Valentine MD Primary Care Provider Encounter Details Date Type Department Care Team (Latest Contact Info) Description 06/09/[address] [facility] Medicine [address] [phone] Martha Walls MD [address] [place] [phone] Backache, unspecified (Primary Dx); Other malaise and fatigue; Nonspecific abnormal results of liver function study Social History Tobacco Use Types Packs/Day Years Used Date Smoking Tobacco: Never Assessed Comments Unknown Sex and Gender Information Value Date Recorded Sex Assigned at Not on file Legal Sex Female 2:53 AM AUTOMATIC BANDSAW TENDER Gender Identity Not on file Sexual Orientation Not on file documented as of this encounter Plan of Treatment Not on file documented as of this encounter Visit Diagnoses Diagnosis Backache, unspecified- Primary Other malaise and fatigue Nonspecific abnormal results of liver function study documented in this encounter Care Teams Sales And Service Associate Relationship Specialty Start Date End Date Roosevelt Valentine MD PCP - General Family Practice 07/19/15 documented as of this encounter
--- OUTSIDE RECORDS SUMMARY | 2024-09-12 11:15 | XMS_ITS | Encounter Summary ---
Author Organization [facility] Address [address] [place] [address] Care Team Providers Care Criminology Teacher Name Role Phone Roosevelt Valentine MD Primary Care Provider [phone] Encounter Details Date Type Department Care Team (Latest Contact Info) Description 05/04/1999 Outpatient Historical [facility] Medicine [address] [address] Rah Mendoza MD [address] [phone] Other and unspecified hyperlipidemia (Primary Dx) Social History Tobacco Use Types Packs/Day Years Used Date Smoking Tobacco: Never Assessed Comments Unknown Sex and Gender Information Value Date Recorded Sex Assigned at Not on file Legal Sex Female 2:53 AM PORTAL ARCHITECT Gender Identity Not on file Sexual Orientation Not on file documented as of this encounter Plan of Treatment Not on file documented as of this encounter Visit Diagnoses Diagnosis Other and unspecified hyperlipidemia- Primary documented in this encounter Care Teams Criminology Teacher Relationship Specialty Start Date End Date Roosevelt Valentine MD PCP - General Family Practice 07/19/15 documented as of this encounter
--- OUTSIDE RECORDS SUMMARY | 2024-09-12 11:15 | XMS_ITS | Encounter Summary ---
Author Organization [facility] Address [address] [place] [address] Care Team Providers Care Director [employer] Name Role Phone Roosevelt Valentine MD Primary Care Provider [phone] Encounter Details Date Type Department Care Team (Late st Contact Info) Description 01/15/2001 Outpatient Historical [facility] D[facility] [address] [place] [phone] Jt Harris MD [address] [place] [address] DERMATITIS NOS (Primary Dx) Social History Tobacco Use Types Packs/Day Years Used Date Smoking Tobacco: Never Assessed Comments Unknown Sex and Gender Information Value Date Recorded Sex Assigned at Not on file Legal Sex Female 2:53 AM RESIDENTIAL REMODELING SUBCONTRACTOR Gender Identity Not on file Sexual Orientation Not on file documented as of this encounter Plan of Treatment Not on file documented as of this encounter Visit Diagnoses Diagnosis Contact dermatitis and other eczema, due to unspecified cause- Primary documented in this encounter Care Teams Director [employer] Relationship Specialty Start Date End Date Roosevelt Valentine MD PCP - General Family Practice 07/19/15 documented as of this encounter
--- OUTSIDE RECORDS SUMMARY | 2024-09-12 11:15 | XMS_ITS | Encounter Summary ---
Author Organization [facility] Address [address] [place] [address] Care Team Providers Care Asphalt Machine Operator Name Role Phone Roosevelt Valentine MD Primary Care Provider [phone] Encounter Details Date Type Department Care Team (Latest Contact Info) Description 11/09/2000 Outpatient Historical [facility] Medicine [address] [address] Rah Mendoza MD [address] [phone] Chest pain, unspecified (Primary Dx); Other and unspecified hyperlipidemia; Unspecified hearing loss; Rash and other nonspecific skin eruption Social History Tobacco Use Types Packs/Day Years Used Date Smoking Tobacco: Never Assessed Comments Unknown Sex and Gender Information Value Date Recorded Sex Assigned at Not on file Legal Sex Female 2:53 AM SALES CORRESPONDENCE CLERK Gender Identity Not on file Sexual Orientation Not on file documented as of this encounter Plan of Treatment Not on file documented as of this encounter Visit Diagnoses Diagnosis Chest pain, unspecified- Primary Other and unspecified hyperlipidemia Unspecified hearing loss Rash and other nonspecific skin eruption documented in this encounter Care Teams Asphalt Machine Operator Relationship Specialty Start Date End Date Roosevelt Valentine MD PCP - General Family Practice 07/19/15 documented as of this encounter
--- OUTSIDE RECORDS SUMMARY | 2024-09-12 11:15 | XMS_ITS | Encounter Summary ---
Author Organization [facility] Address [address] [place] [address] Care Team Providers Care Circular Tank Cooper Name Role Phone Roosevelt Valentine MD Primary Care Provider [phone] Encounter Details Date Type Department Care Team (Late st Contact Info) Description 02/06/2002 Outpatient Historical [facility] [address] [address] Social History Tobacco Use Types Packs/Day Years Used Date Smoking Tobacco: Never Assessed Comments Unknown Sex and Gender Information Value Date Recorded Sex Assigned at Not on file Legal Sex Female 2:53 AM EMPLOYMENT ATTORNEY Gender Identity Not on file Sexual Orientation Not on file documented as of this encounter Plan of Treatment Not on file documented as of this encounter Visit Diagnoses Not on filedocumented in this encounter Care Teams Circular Tank Cooper Relationship Specialty Start Date End Date Roosevelt Valentine MD PCP - General Family Practice 07/19/15 documented as of this encounter
--- OUTSIDE RECORDS SUMMARY | 2024-09-12 11:15 | XMS_ITS | Encounter Summary ---
Author Organization [facility] Address [address] [place] [address] Care Team Providers Care Cutting Machine Tender Name Role Phone Roosevelt Valentine MD Primary Care Provider [phone] Encounter Details Date Type Department Care Team (Late st Contact Info) Description 09/18/2002 Outpatient Historical [facility] Medicine [address] [address] Noelle Saravia MD [address] [place] [address], [address] Social History Tobacco Use Types Packs/Day Years Used Date Smoking Tobacco: Never Assessed Comments Unknown Sex and Gender Information Value Date Recorded Sex Assigned at Not on file Legal Sex Female 2:53 AM RUBBER CURER Gender Identity Not on file Sexual Orientation Not on file documented as of this encounter Plan of Treatment Not on file documented as of this encounter Visit Diagnoses Not on filedocumented in this encounter Care Teams Cutting Machine Tender Relationship Specialty Start Date End Date Roosevelt Valentine MD PCP - General Family Practice 07/19/15 documented as of this encounter
--- OUTSIDE RECORDS SUMMARY | 2024-09-12 11:15 | XMS_ITS | Encounter Summary ---
Author Organization [facility] Address [address] [place] [address] Care Team Providers Care Screener Perfumer Name Role Phone Roosevelt Valentine MD Primary Care Provider [phone] Encounter Details Date Type Department Care Team (Latest Contact Info) Description 01/12/1999 Outpatient Historical [facility] Medicine [address] [phone] Rah Mendoza MD [address] [phone] Other and unspecified hyperlipidemia (Primary Dx) Social History Tobacco Use Types Packs/Day Years Used Date Smoking Tobacco: Never Assessed Comments Unknown Sex and Gender Information Value Date Recorded Sex Assigned at Not on file Legal Sex Female 2:53 AM COOK HELPER DESSERT Gender Identity Not on file Sexual Orientation Not on file documented as of this encounter Plan of Treatment Not on file documented as of this encounter Visit Diagnoses Diagnosis Other and unspecified hyperlipidemia- Primary documented in this encounter Care Teams Screener Perfumer Relationship Specialty Start Date End Date Roosevelt Valentine MD PCP - General Family Practice 07/19/15 documented as of this encounter
--- OUTSIDE RECORDS SUMMARY | 2024-09-12 11:15 | XMS_ITS | Encounter Summary ---
Author Organization [facility] Address [address] [place] [address] Care Team Providers Care Greens Planter Name Role Phone Roosevelt Valentine MD Primary Care Provider [phone] Encounter Details Date Type Department Care Team (Latest Contact Info) Description 07/06/2001 Outpatient Historical [facility] Medicine [place] [address] [phone] Rah Mendoza MD [address] [place] [phone] HYPERLIPIDEMIA NEC/NOS (Primary Dx); AFTERCARE FILM LIBRARY CLERK USE MEDICATN Social History Tobacco Use Types Packs/Day Years Used Date Smoking Tobacco: Never Assessed Comments Unknown Sex and Gender Information Value Date Recorded Sex Assigned at Not on file Legal Sex Female 2:53 AM HAND CANDLE MOLDER Gender Identity Not on file Sexual Orientation Not on file documented as of this encounter Plan of Treatment Not on file documented as of this encounter Visit Diagnoses Diagnosis Other and unspecified hyperlipidemia- Primary Encounter for long-term (current) use of other medications documented in this encounter Care Teams Greens Planter Relationship Specialty Start Date End Date Roosevelt Valentine MD PCP - General Family Practice 07/19/15 documented as of this encounter
--- OUTSIDE RECORDS SUMMARY | 2024-09-12 11:15 | XMS_ITS | Encounter Summary ---
Author Organization [facility] Address [address] [place] [address] Care Team Providers Care Express Manager Name Role Phone Roosevelt Valentine MD Primary Care Provider [phone] Encounter Details Date Type Department Care Team (Latest Contact Info) Description 12/08/2000 Outpatient Historical [facility] [place] [address] [place] [address] Vitreous degeneration (Primary Dx) Social History Tobacco Use Types Packs/Day Years Used Date Smoking Tobacco: Never Assessed Comments Unknown Sex and Gender Information Value Date Recorded Sex Assigned at Not on file Legal Sex Female 2:53 AM ASSISTANT SALES DIRECTOR Gender Identity Not on file Sexual Orientation Not on file documented as of this encounter Plan of Treatment Not on file documented as of this encounter Visit Diagnoses Diagnosis Vitreous degeneration- Primary documented in this encounter Care Teams Express Manager Relationship Specialty Start Date End Date Roosevelt Valentine MD PCP - General Family Practice 07/19/15 documented as of this encounter
--- OUTSIDE RECORDS SUMMARY | 2024-09-12 11:15 | XMS_ITS | Encounter Summary ---
Author Organization [facility] Address [address] [place] [address] Care Team Providers Care Scrubbing Machine Operator Name Role Phone Roosevelt Valentine MD Primary Care Provider [phone] Encounter Details Date Type Department Care Team (Latest Contact Info) Description 11/02/2001 Outpatient Historical [facility] Medicine [address], [place] [phone] Rah Mendoza MD [address] [place] [phone] SHOULDER REGION DIS NEC (Primary Dx); HYPERLIPIDEMIA NEC/NOS; AFTERCARE HEAD OF STOCK USE MEDICATN; DERMATITIS NOS Social History Tobacco Use Types Packs/Day Years Used Date Smoking Tobacco: Never Assessed Comments Unknown Sex and Gender Information Value Date Recorded Sex Assigned at Not on file Legal Sex Female 2:53 AM LEARNING AND DEVELOPMENT INTERN Gender Identity Not on file Sexual Orientation Not on file documented as of this encounter Plan of Treatment Not on file documented as of this encounter Visit Diagnoses Diagnosis Other affections of shoulder region, not elsewhere classified- Primary Other and unspecified hyperlipidemia Encounter for long-term (current) use of other medications Contact dermatitis and other eczema, due to unspecified cause documented in this encounter Care Teams Scrubbing Machine Operator Relationship Specialty Start Date End Date Roosevelt Valentine MD PCP - General Family Practice 07/19/15 documented as of this encounter
--- OUTSIDE RECORDS SUMMARY | 2024-09-12 11:15 | XMS_ITS | Encounter Summary ---
Author Organization [facility] Address [address] [place] [address] Care Team Providers Care Coverer Name Role Phone Roosevelt Valentine MD Primary Care Provider [phone] Encounter Details Date Type Department Care Team (Latest Contact Info) Description 09/18/2002 Outpatient Historical [facility] Medicine [place] [address] [phone] Rah Mendoza MD [address] [place] [phone] Plantar fibromatosis (Primary Dx); HYPERLIPIDEMIA NEC/NOS; AFTERCARE ACADEMIC SERVICES COORDINATOR USE MEDICATN Social History Tobacco Use Types Packs/Day Years Used Date Smoking Tobacco: Never Assessed Comments Unknown Sex and Gender Information Value Date Recorded Sex Assigned at Not on file Legal Sex Female 2:53 AM GAMING COMMISSIONER Gender Identity Not on file Sexual Orientation Not on file documented as of this encounter Plan of Treatment Not on file documented as of this encounter Visit Diagnoses Diagnosis Plantar fibromatosis- Primary Plantar fascial fibromatosis Other and unspecified hyperlipidemia Encounter for long-term (current) use of other medications documented in this encounter Care Teams Coverer Relationship Specialty Start Date End Date Roosevelt Valentine MD PCP - General Family Practice 07/19/15 documented as of this encounter
--- OUTSIDE RECORDS SUMMARY | 2024-09-12 11:15 | XMS_ITS | Encounter Summary ---
Author Organization [facility] Address [address] [place] [address] Care Team Providers Care Log Handler Name Role Phone Roosevelt Valentine MD Primary Care Provider [phone] Encounter Details Date Type Department Care Team (Latest Contact Info) Description 09/02/1999 Outpatient Historical [facility] Medicine [address] [address] Rah Mendoza MD [address] [phone] Other and unspecified hyperlipidemia (Primary Dx) Social History Tobacco Use Types Packs/Day Years Used Date Smoking Tobacco: Never Assessed Comments Unknown Sex and Gender Information Value Date Recorded Sex Assigned at Not on file Legal Sex Female 2:53 AM PRICING SPECIALIST Gender Identity Not on file Sexual Orientation Not on file documented as of this encounter Plan of Treatment Not on file documented as of this encounter Visit Diagnoses Diagnosis Other and unspecified hyperlipidemia- Primary documented in this encounter Care Teams Log Handler Relationship Specialty Start Date End Date Roosevelt Valentine MD PCP - General Family Practice 07/19/15 documented as of this encounter
--- OUTSIDE RECORDS SUMMARY | 2024-09-12 11:15 | XMS_ITS | Encounter Summary ---
Author Organization [facility] Address [address] [place] [address] Care Team Providers Care Theatrical Performer Name Role Phone Roosevelt Valentine MD Primary Care Provider [phone] Encounter Details Date Type Department Care Team (Latest Contact Info) Description 02/09/1998 Outpatient Historical [facility] Medicine [address] [phone] Rah Mendoza MD [address] [place] [phone] Actinic keratosis (Primary Dx); Allergy, unspecified not elsewhere classified Social History Tobacco Use Types Packs/Day Years Used Date Smoking Tobacco: Never Assessed Comments Unknown Sex and Gender Information Value Date Recorded Sex Assigned at Not on file Legal Sex Female 2:53 AM SOCIOLOGY PROFESSOR Gender Identity Not on file Sexual Orientation Not on file documented as of this encounter Plan of Treatment Not on file documented as of this encounter Visit Diagnoses Diagnosis Actinic keratosis- Primary Allergy, unspecified not elsewhere classified documented in this encounter Care Teams Theatrical Performer Relationship Specialty Start Date End Date Roosevelt Valentine MD PCP - General Family Practice 07/19/15 documented as of this encounter
--- OUTSIDE RECORDS SUMMARY | 2024-09-12 11:15 | XMS_ITS | Encounter Summary ---
Author Organization [facility] Address [address] [place] [address] Care Team Providers Care District Agent Name Role Phone Roosevelt Valentine MD Primary Care Provider [phone] Encounter Details Date Type Department Care Team (Latest Contact Info) Description 04/17/2002 Outpatient Historical [facility] Rah Mendoza MD [address] [place] [address] BREAST DISORDERS NEC (Primary Dx) Social History Tobacco Use Types Packs/Day Years Used Date Smoking Tobacco: Never Assessed Comments Unknown Sex and Gender Information Value Date Recorded Sex Assigned at Not on file Legal Sex Female 2:53 AM INSIDE ACCOUNT REPRESENTATIVE Gender Identity Not on file Sexual Orientation Not on file documented as of this encounter Plan of Treatment Not on file documented as of this encounter Visit Diagnoses Diagnosis Other specified disorder of breast- Primary documented in this encounter Care Teams District Agent Relationship Specialty Start Date End Date Roosevelt Valentine MD PCP - General Family Practice 07/19/15 documented as of this encounter
--- OUTSIDE RECORDS SUMMARY | 2024-09-12 11:15 | XMS_ITS | Encounter Summary ---
Author Organization [facility] Address [address] [place] [address] Care Team Providers Care Graduate Advisor Name Role Phone Roosevelt Valentine MD Primary Care Provider [phone] Encounter Details Date Type Department Care Team (Latest Contact Info) Description 12/08/2000 Outpatient Historical [facility] Cardiology- [place] [address] [place] [address] Misael Miramontes MD NO ADDRESS ON FILE Precordial pain (Primary Dx); Other dyspnea and respiratory abnormality; Mixed hyperlipidemia Social History Tobacco Use Types Packs/Day Years Used Date Smoking Tobacco: Never Assessed Comments Unknown Sex and Gender Information Value Date Recorded Sex Assigned at Not on file Legal Sex Female 2:53 AM CLINICAL NURSING COORDINATOR Gender Identity Not on file Sexual Orientation Not on file documented as of this encounter Plan of Treatment Not on file documented as of this encounter Visit Diagnoses Diagnosis Precordial pain- Primary Other dyspnea and respiratory abnormality Mixed hyperlipidemia documented in this encounter Care Teams Graduate Advisor Relationship Specialty Start Date End Date Roosevelt Valentine MD PCP - General Family Practice 07/19/15 documented as of this encounter
--- OUTSIDE RECORDS SUMMARY | 2024-09-12 11:15 | XMS_ITS | Encounter Summary ---
Author Organization [facility] Address [address] [place] [address] Care Team Providers Care Program Scheduler Name Role Phone Roosevelt Valentine MD Primary Care Provider [phone] Encounter Details Date Type Department Care Team (Latest Contact Info) Description 12/11/2000 Outpatient Historical [facility] Medicine [address] [phone] Rah Mendoza MD [address] [place] [phone] Other and unspecified hyperlipidemia (Primary Dx); Chest pain, unspecified; Actinic keratosis Social History Tobacco Use Types Packs/Day Years Used Date Smoking Tobacco: Never Assessed Comments Unknown Sex and Gender Information Value Date Recorded Sex Assigned at Not on file Legal Sex Female 2:53 AM VACUUM SPINDLE SANDER Gender Identity Not on file Sexual Orientation Not on file documented as of this encounter Plan of Treatment Not on file documented as of this encounter Visit Diagnoses Diagnosis Other and unspecified hyperlipidemia- Primary Chest pain, unspecified Actinic keratosis documented in this encounter Care Teams Program Scheduler Relationship Specialty Start Date End Date Roosevelt Valentine MD PCP - General Family Practice 07/19/15 documented as of this encounter
--- OUTSIDE RECORDS SUMMARY | 2024-09-12 11:15 | XMS_ITS | Encounter Summary ---
Author Organization [facility] Address [address] [place] [address] Care Team Providers Care Product Representative Name Role Phone Roosevelt Valentine MD Primary Care Provider Encounter Details Date Type Department Care Team (Late st Contact Info) Description 12/08/2000 Outpatient Historical [facility] Dermatology- [address] [place] [phone] Jt Harris MD [address] [place] [address] Contact dermatitis and other eczema, due to unspecified cause (Primary Dx) Social History Tobacco Use Types Packs/Day Years Used Date Smoking Tobacco: Never Assessed Comments Unknown Sex and Gender Information Value Date Recorded Sex Assigned at Not on file Legal Sex Female 2:53 AM CORRESPONDENCE SCHOOL INSTRUCTOR Gender Identity Not on file Sexual Orientation Not on file documented as of this encounter Plan of Treatment Not on file documented as of this encounter Visit Diagnoses Diagnosis Contact dermatitis and other eczema, due to unspecified cause- Primary documented in this encounter Care Teams Product Representative Relationship Specialty Start Date End Date Roosevelt Valentine MD PCP - General Family Practice 07/19/15 documented as of this encounter
--- OUTSIDE RECORDS SUMMARY | 2024-09-12 11:15 | XMS_ITS | Encounter Summary ---
Author Organization [facility] Address [address] [place] [address] Care Team Providers Care Junior Graphic Designer Name Role Phone Roosevelt Valentine MD Primary Care Provider [phone] Encounter Details Date Type Department Care Team (Late st Contact Info) Description 02/06/2002 Outpatient Historical [facility] Medicine [address] [address] Rah Mendoza MD [address] [place] [phone] Social History Tobacco Use Types Packs/Day Years Used Date Smoking Tobacco: Never Assessed Comments Unknown Sex and Gender Information Value Date Recorded Sex Assigned at Not on file Legal Sex Female 2:53 AM REAL ESTATE JOB TITLES Gender Identity Not on file Sexual Orientation Not on file documented as of this encounter Plan of Treatment Not on file documented as of this encounter Visit Diagnoses Not on filedocumented in this encounter Care Teams Junior Graphic Designer Relationship Specialty Start Date End Date Roosevelt Valentine MD PCP - General Family Practice 07/19/15 documented as of this encounter
--- OUTSIDE RECORDS SUMMARY | 2024-09-12 11:15 | XMS_ITS | Encounter Summary ---
Author Organization [facility] Address [address] [place] [address] Care Team Providers Care Broiler Manager Name Role Phone Roosevelt Valentine MD Primary Care Provider Encounter Details Date Type Department Care Team (Latest Contact Info) Description 06/16/1999 Outpatient Historical [facility] Medicine [address] [address] Martha Walls MD [address] [place] [phone] Acute pharyngitis (Primary Dx); Urge incontinence; Unspecified asthma(493.90); Gynecologic examination Social History Tobacco Use Types Packs/Day Years Used Date Smoking Tobacco: Never Assessed Comments Unknown Sex and Gender Information Value Date Recorded Sex Assigned at Not on file Legal Sex Female 2:53 AM ACCOUNT INSTALLER Gender Identity Not on file Sexual Orientation Not on file documented as of this encounter Plan of Treatment Not on file documented as of this encounter Visit Diagnoses Diagnosis Acute pharyngitis- Primary Urge incontinence Unspecified asthma(493.90) Unspecified asthma Gynecologic examination Gynecological examination documented in this encounter Care Teams Broiler Manager Relationship Specialty Start Date End Date Roosevelt Valentine MD PCP - General Family Practice 07/19/15 documented as of this encounter
--- OUTSIDE RECORDS SUMMARY | 2024-09-12 11:15 | XMS_ITS | Encounter Summary ---
Author Organization [facility] Address [address] [place] [address] Care Team Providers Care Embedded Software Programmer Name Role Phone Roosevelt Valentine MD Primary Care Provider Encounter Details Date Type Department Care Team (Latest Contact Info) Description 08/14/2002 Outpatient Historical [address] [address] Noelle Saravia MD [address] [place] [address], [address] UNS ASTHMA WOSTATUS ASTHMATICUS (Primary Dx); HYPERLIPIDEMIA NEC/NOS; Lateral epicondylitis; ACTINIC KERATOSIS Social History Tobacco Use Types Packs/Day Years Used Date Smoking Tobacco: Never Assessed Comments Unknown Sex and Gender Information Value Date Recorded Sex Assigned at Not on file Legal Sex Female 2:53 AM FIBER PICKER Gender Identity Not on file Sexual Orientation Not on file documented as of this encounter Plan of Treatment Not on file documented as of this encounter Visit Diagnoses Diagnosis Unspecified asthma(493.90)- Primary Unspecified asthma Other and unspecified hyperlipidemia Lateral epicondylitis Lateral epicondylitis of elbow Actinic keratosis documented in this encounter Care Teams Embedded Software Programmer Relationship Specialty Start Date End Date Roosevelt Valentine MD PCP - General Family Practice 07/19/15 documented as of this encounter
--- OUTSIDE RECORDS SUMMARY | 2024-09-12 11:15 | XMS_ITS | Encounter Summary ---
Author Organization [facility] Address [address] [place] [address] Care Team Providers Care Drawing Instructor Name Role Phone Roosevelt Valentine MD Primary Care Provider [phone] Encounter Details Date Type Department Care Team (Latest Contact Info) Description 02/05/2002 Outpatient Historical [facility] [address] [place] [address] Lee Melvin MD [address] [place] [address] SCREENING MAMM-MAILG NEOPL-OTHER (Primary Dx) Social History Tobacco Use Types Packs/Day Years Used Date Smoking Tobacco: Never Assessed Comments Unknown Sex and Gender Information Value Date Recorded Sex Assigned at Not on file Legal Sex Female 2:53 AM STREETCAR MOTORMAN Gender Identity Not on file Sexual Orientation Not on file documented as of this encounter Plan of Treatment Not on file documented as of this encounter Visit Diagnoses Diagnosis Other screening mammogram- Primary documented in this encounter Care Teams Drawing Instructor Relationship Specialty Start Date End Date Roosevelt Valentine MD PCP - General Family Practice 07/19/15 documented as of this encounter
--- OUTSIDE RECORDS SUMMARY | 2024-09-12 11:15 | XMS_ITS | Encounter Summary ---
Author Organization [facility] Address [address] [place] [address] Care Team Providers Care Bone Char Puller Name Role Phone Roosevelt Valentine MD Primary Care Provider [phone] Encounter Details Date Type Department Care Team (Latest Contact Info) Description 05/31/2000 Outpatient Historical [facility] Medicine [address] [address] Martha Walls MD [address] [place] [phone] Other and unspecified hyperlipidemia (Primary Dx); Nonspecific abnormal results of liver function study Social History Tobacco Use Types Packs/Day Years Used Date Smoking Tobacco: Never Assessed Comments Unknown Sex and Gender Information Value Date Recorded Sex Assigned at Not on file Legal Sex Female 2:53 AM POWER TONG OPERATOR Gender Identity Not on file Sexual Orientation Not on file documented as of this encounter Plan of Treatment Not on file documented as of this encounter Visit Diagnoses Diagnosis Other and unspecified hyperlipidemia- Primary Nonspecific abnormal results of liver function study documented in this encounter Care Teams Bone Char Puller Relationship Specialty Start Date End Date Roosevelt Valentine MD PCP - General Family Practice 07/19/15 documented as of this encounter
--- OUTSIDE RECORDS SUMMARY | 2024-09-12 11:15 | XMS_ITS | Encounter Summary ---
Author Organization [facility] Address [address] [place] [address] Care Team Providers Care Manufacturing Support Engineer Name Role Phone Roosevelt Valentine MD Primary Care Provider [phone] Encounter Details Date Type Department Care Team (Latest Contact Info) Description 04/17/2002 Outpatient Historical [facility] Breast [facility] [address] [facility] [address] [place] [address] Sandra Gilbert MD NO ADDRESS ON FILE MAMMOGRAPHIC MICROCALCIFICATION (Primary Dx) Social History Tobacco Use Types Packs/Day Years Used Date Smoking Tobacco: Never Assessed Comments Unknown Sex and Gender Information Value Date Recorded Sex Assigned at Not on file Legal Sex Female 2:53 AM RENTAL CAR PORTER Gender Identity Not on file Sexual Orientation Not on file documented as of this encounter Plan of Treatment Not on file documented as of this encounter Visit Diagnoses Diagnosis Mammographic microcalcification- Primary documented in this encounter Care Teams Manufacturing Support Engineer Relationship Specialty Start Date End Date Roosevelt Valentine MD PCP - General Family Practice 07/19/15 documented as of this encounter
--- OUTSIDE RECORDS SUMMARY | 2024-09-12 11:16 | XMS_ITS | Encounter Summary ---
Author Organization [facility] Address [address] [place] [address] Care Team Providers Care Data Architect Manager Name Role Phone Roosevelt Valentine MD Primary Care Provider [phone] Encounter Details Date Type Department Care Team (Latest Contact Info) Description 10/02/2002 Outpatient Historical [address] [address] Noelle Saravia MD [address] [place] [address] Plantar fibromatosis (Primary Dx) Social History Tobacco Use Types Packs/Day Years Used Date Smoking Tobacco: Never Assessed Comments Unknown Sex and Gender Information Value Date Recorded Sex Assigned at Not on file Legal Sex Female 2:53 AM INSTRUMENT STERILIZER Gender Identity Not on file Sexual Orientation Not on file documented as of this encounter Plan of Treatment Not on file documented as of this encounter Visit Diagnoses Diagnosis Plantar fibromatosis- Primary Plantar fascial fibromatosis documented in this encounter Care Teams Data Architect Manager Relationship Specialty Start Date End Date Roosevelt Valentine MD PCP - General Family Practice 07/19/15 documented as of this encounter
--- OUTSIDE RECORDS SUMMARY | 2024-09-12 11:16 | XMS_ITS | Encounter Summary ---
Author Organization [facility] Address [address] [place] [address] Care Team Providers Care Agricultural Extension Educator Name Role Phone Roosevelt Valentine MD Primary Care Provider [phone] Encounter Details Date Type Department Care Team (Late st Contact Info) Description 10/16/2002 Outpatient Historical [facility] Family Medicine [address] [address] Chele Kirby, BOSS DYER [address] [place] [address] Social History Tobacco Use Types Packs/Day Years Used Date Smoking Tobacco: Never Assessed Comments Unknown Sex and Gender Information Value Date Recorded Sex Assigned at Not on file Legal Sex Female 2:53 AM CITRIX SYSTEMS ADMINISTRATOR Gender Identity Not on file Sexual Orientation Not on file documented as of this encounter Plan of Treatment Not on file documented as of this encounter Visit Diagnoses Not on filedocumented in this encounter Care Teams Agricultural Extension Educator Relationship Specialty Start Date End Date Roosevelt Valentine MD PCP - General Family Practice 07/19/15 documented as of this encounter
--- OUTSIDE RECORDS SUMMARY | 2024-09-12 11:16 | XMS_ITS | Encounter Summary ---
Author Organization [facility] Address [address] [place] [address] Care Team Providers Care Acquisition Marketing Coordinator Name Role Phone Roosevelt Valentine MD Primary Care Provider [phone] Encounter Details Date Type Department Care Team (Latest Contact Info) Description 02/19/2003 Outpatient Historical [facility] Medicine [place] [address] [address] Rah Mendoza MD [address] [place] [phone] HYPERLIPIDEMIA NEC/NOS (Primary Dx); AFTERCARE SURFACE SUPPLY BREATHING APPARATUS USE MEDICATN; UNSPEC CONSTIPATION; Vaccine for influenza Social History Tobacco Use Types Packs/Day Years Used Date Smoking Tobacco: Never Assessed Comments Unknown Sex and Gender Information Value Date Recorded Sex Assigned at Not on file Legal Sex Female 2:53 AM CLOTH OPENER HAND Gender Identity Not on file Sexual Orientation Not on file documented as of this encounter Plan of Treatment Not on file documented as of this encounter Visit Diagnoses Diagnosis Other and unspecified hyperlipidemia- Primary Encounter for long-term (current) use of other medications Unspecified constipation Vaccine for influenza Need for prophylactic vaccination and inoculation against influenza documented in this encounter Care Teams Acquisition Marketing Coordinator Relationship Specialty Start Date End Date Roosevelt Valentine MD PCP - General Family Practice 07/19/15 documented as of this encounter
--- OUTSIDE RECORDS SUMMARY | 2024-09-12 11:16 | XMS_ITS | Encounter Summary ---
Author Organization [facility] Address [address] [place] [address] Care Team Providers Care Senior Sous Chef Name Role Phone Roosevelt Valentine MD Primary Care Provider [phone] Encounter Details Date Type Department Care Team (Latest Contact Info) Description 10/16/2002 Outpatient Historical [facility] Medicine [place] [address], [place] [address] Rah Mendoza MD [address] [place] [phone] Plantar fibromatosis (Primary Dx); AFTERCARE SUPERVISOR MICROBIOLOGY TECHNOLOGISTS USE MEDICATN Social History Tobacco Use Types Packs/Day Years Used Date Smoking Tobacco: Never Assessed Comments Unknown Sex and Gender Information Value Date Recorded Sex Assigned at Not on file Legal Sex Female 2:53 AM BOTANICAL TECHNICAL OFFICER Gender Identity Not on file Sexual Orientation Not on file documented as of this encounter Plan of Treatment Not on file documented as of this encounter Visit Diagnoses Diagnosis Plantar fibromatosis- Primary Plantar fascial fibromatosis Encounter for long-term (current) use of other medications documented in this encounter Care Teams Senior Sous Chef Relationship Specialty Start Date End Date Roosevelt Valentine MD PCP - General Family Practice 07/19/15 documented as of this encounter
--- OUTSIDE RECORDS SUMMARY | 2024-09-12 11:16 | XMS_ITS | Clinical Summary ---
Author Organization [facility] Address [address] [place]: Epic Prelude ADT [place] [address] Care Team Providers Care Merchandise Planning Manager Name Role Phone Roosevelt Valentine MD Primary Care Provider [phone] Allergies No known active allergies Medications aspirin (ECOTRIN EC) 81 mg Tablet, Delayed Release (E.C.) Take 81 mg by mouth daily. 6 Active cholecalciferol 1,250 mcg (50,000 unit) Capsule Take by mouth. 6 Active calcium-vitamin D3 (CALTRATE 600+D) 600 mg-5 mcg (200 unit) Tablet Take 1 Tablet by mouth 2 times daily. 6 Active amLODIPine (NORVASC) 10 mg tablet Take 10 mg by mouth daily. 6 Active losartan (COZAAR) 100 mg tablet Take 100 mg by mouth daily. 6 Active albuterol sulfate HFA 90 mcg/actuation aerosol inhaler Take 2 Puffs by inhalation every 6 hours as needed for Shortness of Breath. 6 Active omeprazole (PriLOSEC) 20 mg Capsule, Delayed Release(E.C.) Take 20 mg by mouth daily. 6 Active montelukast (SINGULAIR) 10 mg tablet Take 10 mg by mouth daily at bedtime. 6 Active gabapentin (NEURONTIN) 600 mg tablet Take 600 mg by mouth 3 times daily. 6 Active ezetimibe (ZETIA) 10 mg tablet Take 10 mg by mouth Daily LATE. 6 Active hydroCHLOROthia zide 25 mg tablet Take 25 mg by mouth daily. 6 Active olopatadine (PATANOL) 0.1 % solution Administer 1 Drop in both eyes 2 times daily. 6 Active metFORMIN (GLUCOPHAGE) 500 mg tablet Take 500 mg by mouth 2 times daily with meals. 6 Active Encounters Date Type Department Care Team Description 09/03/2024 External Device Data ST[facility] ABSTRACTION Provider, Abstract 08/28/2024 External Device Data ST[facility] ABSTRACTION Provider, Abstract 08/27/2024 External Device Data ST[facility] ABSTRACTION Provider, Abstract 07/31/2024 External Device Data ST[facility] ABSTRACTION Provider, Abstract 07/30/2024 External Device Data ST[facility] ABSTRACTION Provider, Abstract from Last 3 Months Immunizations Immunization Administration Dates Next Due Influenza Seasonal Unspecified Formulation IM Social History Tobacco Use Types Packs/Day Years Used Date Smoking Tobacco: Never Alcohol Use Standard Drinks/Week Comments No 0 (1 standard drink = 0.6 oz pur e alcohol) Comments Unknown Sex and Gender Information Value Date Recorded Sex Assigned at Not on file Legal Sex Female 5:54 AM FASHION INTERN Gender Identity Not on file Sexual Orientation Not on file Last Filed Vital Signs Vital Sign Reading Time Taken Comments Blood Pressure 114/56 07/19/2015 9:59 PM CDT Pulse - - Temperature 37.2 C (98.9 F) 07/19/2015 9:59 PM CDT Respiratory Rate 18 07/19/2015 9:59 PM CDT Oxygen Saturation - - Inhaled Oxygen Concentration - - Weight 63 kg (139 lb) 07/19/2015 8:12 PM CDT Height 149.9 cm (4' 11 ) 07/19/2015 8:12 PM CDT Body Mass Index 28.07 07/19/2015 8:12 PM CDT Plan of Treatment Health Maintenance Due Date Last Done Comments DTAP/TDAP/TD VACCINES (1 - Tdap) 1967 PNEUMOCOCCAL VACCINE 50+ YEARS (1 of 2 - PCV) 03/17/18 68 ZOSTER VACCINE (1 of 2) 1998 OSTEOPOROSIS SCREENING 2013 RSV VACCINE (60+ or ) (1 - 1-dose 75+ series) 2023 INFLUENZA VACCINE (#1) 2024 02/19/2003 Insurance MEDICARE PART A AND B FOR LIFE Care Teams Merchandise Planning Manager Relationship Specialty Start Date End Date Roosevelt Valentine MD [address] [place] [address] PCP - General Family Practice 07/19/15
--- OUTSIDE RECORDS SUMMARY | 2024-09-12 11:16 | XMS_ITS | Encounter Summary ---
Author Organization [facility] Address [address] [place] [address] Care Team Providers Care Disease Case Manager Rn Name Role Phone Roosevelt Valentine MD Primary Care Provider [phone] Encounter Details Date Type Department Care Team (Late st Contact Info) Description 07/04/2006 Outpatient Historical [facility] Blaine Baez, DO [address] [place] [address] Social History Tobacco Use Types Packs/Day Years Used Date Smoking Tobacco: Never Assessed Comments Unknown Sex and Gender Information Value Date Recorded Sex Assigned at Not on file Legal Sex Female 2:53 AM SPECIAL DISTRIBUTION CLERK Gender Identity Not on file Sexual Orientation Not on file documented as of this encounter Plan of Treatment Not on file documented as of this encounter Procedures Procedure Name Priority Date/Time Associated Diagnosis Comments MRI LUMBAR WO CONTRAST Routine 07/04/2006 3:06 AM CDT documented in this encounter Results * MRI LUMBAR WO CONTRAST (07/04/2006 3:06 AM CDT) Anatomical Region Laterality Modality Spine Other 07/04/2006 3:06 AM CDT Narrative 07/04/2006 3:06 AM CDT MRI Lumbar Spine Without ContrastDate: 07/04/2006. History: 56-year-old female low back pain. Technique: Multiplanar multisequence MR images were obtained without contrast. Findings: Lumbar alignment is grossly normal. Mild to moderate diffuse lumbar discogenic degenerationis present, not unexpected for patient age. Findings manifest as disc desiccation with loss of discspace height and annular bulging over all levels. No high-grade central canal stenosis. Marrowsignal appears normal. Conus normal. Axial images show mild annular bulging at L3-L4 and L4-L5 with flattening of the ventral thecal sacbut no suspected neurocompressive effect. Mild neural foraminal narrowing over these levels. At L5-S1, moderate annular bulging flattens the ventral thecal sac without suspected centralneurocompressive effect. There is a broad-based left lateral/foraminal disc protrusion at thislevel which results in moderate to severe left-sided neural foraminal narrowing, possibly affectingexiting left L5 nerve root. 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 Broad-based left lateraldisc protrusion at L5-S1 may be affecting exiting left L5 nerve root. - Dictated By: Noé Martinez D.O. Electronically Signed By: Noé Martinez D.O. Date Signed: 07/06/06 AMA Procedure Note 01/31/2009 MRI Lumbar Spine Without ContrastDate: 07/04/2006. History: 56-year-old female low back pain. Technique: Multiplanar multisequence MR images were obtained without contrast. Findings: Lumbar alignment is grossly normal. Mild to moderate diffuse lumbardiscogenic degenerationis present, not unexpected for patient age. Findings manifest as disc desiccation withloss of discspace height and annular bulging over all levels. No high-grade central canal stenosis.Marrowsignal appears normal. Conus normal. Axial images show mild annular bulging at L3-L4 and L4-L5 with flatteningof the ventral thecal sacbut no suspected neurocompressive effect. Mild neural foraminal narrowing overthese levels. At L5-S1, moderate annular bulging flattens the ventral thecal sac withoutsuspected centralneurocompressive effect. There is a broad-based leftlateral/foraminal disc protrusion at thislevel which results in moderate to severe left-sided neural foraminalnarrowing, possibly affectingexiting left L5 nerve root. IMPRESSION: Mild to moderate age-appropriate lumbar discogenic degeneration.Broad-based left lateraldisc protrusion at L5-S1 may be affecting exiting left L5 nerve root. - Dictated By: Noé Martinez D.O. Electronically Signed By: Noé Martinez D.O. Date Signed: 07/06/06 AMA Blaine Baez DO MR ORDERABLES Final Resu lt documented in this encounter Visit Diagnoses Not on filedocumented in this encounter Care Teams Disease Case Manager Rn Relationship Specialty Start Date End Date Roosevelt Valentine MD PCP - General Family Practice 07/19/15 documented as of this encounter
--- OUTSIDE RECORDS SUMMARY | 2024-09-12 11:16 | XMS_ITS | Encounter Summary ---
Author Organization [facility] Address [address] [place] [address] Care Team Providers Care Asbestos Handler Name Role Phone Roosevelt Valentine MD Primary Care Provider [phone] Encounter Details Date Type Department Care Team (Late st Contact Info) Description 02/19/2003 Outpatient Historical [facility] Family Medicine [address] [address] Chele Kirby, DIRECTOR OF EARLY CHILDHOOD EDUCATION [address] [place] [address] Social History Tobacco Use Types Packs/Day Years Used Date Smoking Tobacco: Never Assessed Comments Unknown Sex and Gender Information Value Date Recorded Sex Assigned at Not on file Legal Sex Female 2:53 AM BAG MACHINE SET UP 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
--- NOTE | 2024-09-12 11:23 | XR_ITS ---
WS: [id number] XR chest 1V portable [id number] REASON FOR EXAM: dyspnea/cough FINDINGS: Thoracic aorta and mediastinum are within normal limits. Heart size is normal. Elevation of the right hemidiaphragm. Calcified granulomatous disease in both hemithoraces. Interstitial and groundglass opacities in the left lower lung obscuring the left hemidiaphragm pneumatic contour. There is blunting of the left costophrenic angle suggesting small left pleural effusion. There is been previous mastectomy with axillary dissection. Moderate degenerative spondylosis in the mid and lower thoracic spine. No focal bony abnormality in the thorax. XR/XR chest 1V portable [id number] IMPRESSION: Probable acute/subacute pneumonitis with small pleural effusion on the left.
[2024-09-12 11:38] LABS: Hematocrit 29.2 % (36-47); Hemoglobin 9.20 g/dL (11.27-16.99); Mean Corpuscular HGB Conc 31.5 g/dL (30-55); Mean Corpuscular Hemoglobin 25.1 pg (27-33); Mean Corpuscular Volume 79.6 fl (85-98); Nucleated Red Blood Cells % 0 %; Platelet Count 129 10^3/cmm (157-399); Red Blood Count 3.67 10^6/uL (3.85-5.65); White Blood Count 6.10 10^3/uL (3.29-11.43)
--- NOTE | 2024-09-12 11:38 | US_ITS ---
WS: [id number] ULTRASOUND-GUIDED THERAPEUTIC AND DIAGNOSTIC PARACENTESIS Procedure, risks, and complications have been explained to the patient. Consent is obtained. Utilizing aseptic technique and 1% buffered lidocaine, a small dermatome was made through which a 5 Iranian Yueh catheter was inserted. Approximately 4700 ml of clear peritoneal fluid was obtained without difficulty. No complications encountered. Specimen collected for analysis. US/US paracentesis abd w [id number] IMPRESSION: Uncomplicated paracentesis yielding 4700 ml of peritoneal fluid.
--- NOTE | 2024-09-12 11:40 | W.ED.EXTPRO ---
HPI - Extremity Problem General: Chief complaint: Extremity Problem,Nontraumatic Stated complaint: fluid build up sent by dr Flores Time Seen by Provider: 09/12/24 11:22 History of Present Illness: 74-year-old female presents emergency room directly of her primary care physician at the [facility]. She has significant swelling in abdomen to the point that it causes her to be short of breath at times. When she lays down on her own she is walking around. She has a known history of liver cirrhosis thought to be MATA she has not been a drinker in the past no known diagnosis of hepatitis. She has been using Lasix but not able to get any fluid off of her and has had increasing swelling in her lower extremities over the last few weeks. He tells me he she has seen GI before and they had discussed with her about the possibility of referral for liver transplant but she is not gone through with that yet. No chest pain no abdominal pain no fever sweats chills no productive cough Associated symptoms: Deny chest pain, fever(s) or rash Related Data Home Medications ?Medication ?Instructions ?Recorded ?Confirmed aspirin 81 mg tablet,delayed 81 mg PO DAILY 08/14/21 09/12/24 release furosemide 20 mg tablet 20 mg PO DAILY 08/15/22 09/12/24 lynne thread as directed 06/06/24 09/12/24 Previous Rx's ?Medication ?Instructions ?Recorded diabetic shoes with 3 inserts 5514 #1 ea 06/22/23 ferrous sulfate 325 mg (65 mg 325 mg PO BID #180 tabs 06/12/24 iron) tablet gabapentin 300 mg capsule 300 mg PO BID PRN pain #180 caps 06/12/24 lactulose 10 gram/15 mL oral 20 g (30 mL) PO BID #1,500 mL 06/12/24 solution montelukast 10 mg tablet 10 mg PO DAILY #90 tabs 06/12/24 potassium chloride 20 mEq 20 meq PO DAILY #90 tabs 06/12/24 tablet,extended release (K-Tab) verapamil 120 mg 24 hr 120 mg PO DAILY #90 caps 06/12/24 capsule,extended release furosemide 40 mg tablet (Lasix) 40 mg PO DAILY edema #60 tabs 09/12/24 loratadine 10 mg tablet 10 mg PO DAILY #90 tabs 09/12/24 Allergies Allergy/AdvReac Type Severity Reaction Status Date / Time No Known Allergies Allergy Verified 09/12/24 09:18 Review of Systems Const: Denies: fever(s) or chills Card: Reports: edema and swelling of feet/ankles; Denies: chest pain Resp: Reports: dyspnea GI: Reports: early satiety, bloating and GI cramping; Denies: abdominal pain, nausea or vomiting : Denies: dysuria, urinary frequency or urinary urgency Musc: Denies: neck pain or back pain Skin/Breast: Denies: rash PFSH ED PFSH: Medical History Hypokalemia Arthritis of foot, left Elevated serum creatinine Abnormal CT of the abdomen Abdominal bloating Medication management Hx of malignant neoplasm of breast History of gram negative sepsis (08/2021) E. coli urinary tract infection with bacteremia/sepsis Hyperlipidemia Liver cirrhosis Neuropathy GERD (gastroesophageal reflux disease) Type 2 diabetes mellitus Hypertension Asthma Breast cancer Surgical History History of cataract surgery History of colonoscopy 2011 History of removal of Port-a-Cath 03/2017 History of lumpectomy of left breast 09/08/2015 History of hand surgery Right hand surgery and left trigger finger repair History of left mastectomy (09/25/15) Left modified radical mastectomy History of foot surgery History of appendectomy Family History Other CAD (coronary artery disease) Cancer Diabetes Hyperlipidemia Hypertension Lung disease Denies family history of Clotting disorder Dementia Psychiatric illness Chronic kidney disease (CKD) Suicide Anesthesia complication Bleeding disorder Stroke Social History Smoking and tobacco/nicotine status: never used tobacco/nicotine Alcohol intake: never Substance/Drug Use: never Physical Exam Const: GENERAL APPEARANCE: cooperative ORIENTATION/CONSCIOUSNESS: Yes awake, Yes oriented to person, Yes oriented to place and Yes oriented to time HENMT: COMMON NORMALS: normocephalic, atraumatic and hearing grossly normal bilaterally HEAD & SCALP: normocephalic and atraumatic Resp: COMMON NORMALS: normal respiratory effort, No retractions, No use of accessory muscles and clear to auscultation bilaterally AUSCULTATION: clear to auscultation bilaterally Cardio: COMMON NORMALS: regular rate, regular rhythm and No murmurs present (Cardio) RATE: regular rate RHYTHM: regular rhythm GI: INSPECTION: Yes abdominal distension AUSCULTATION: Yes normoactive bowel sounds PALPATION: No Tenderness to palpation present (GI), No Guarding due to palpation present (GI), Yes Hepatomegaly present and Yes Ascites present PERCUSSION: dullness to percussion Extremity: COMMON NORMALS: normal to inspection, capillary refill normal and no calf tenderness GENERAL: Yes edema Neuro: SENSORIUM/ORIENTATION: Yes oriented to person, Yes oriented to place and Yes oriented to time Skin: COMMON NORMALS: no rashes or lesions noted GENERAL SKIN EXAM: no rashes or lesions noted Course Vital Signs: Vital signs: Vital Signs Temperature 97.8 F 09/12/24 11:19 Pulse Rate 81 09/12/24 11:19 Respiratory Rate 17 09/12/24 11:19 Blood Pressure 144/70 09/12/24 11:19 Pulse Oximetry 95 09/12/24 11:19 Oxygen Delivery Me thod Room Air 09/12/24 11:19 MDM - Extremity (Nontraumatic) Medical Decision Making Patient reports feeling much better with paracentesis. Paracentesis removed 4700 mL. She can continue on her Lasix discussed with her that there is a very good chance that the fluid in the abdomen will recur appropriate cultures and laboratory analysis were ordered on the fluid. Patient is feeling much better she does not demonstrate any hypotension after the paracentesis we will discharge her home follow-up with Dr. Flores next week. Medical Records I reviewed the patient's medical records. Lab Data I reviewed the patient's lab results. 09/12/24 11:33 09/12/24 11:33 Radiology Impressions Chest X-Ray 09/12/24 11:23 IMPRESSION: Probable acute/subacute pneumonitis with small pleural effusion on the left. Laboratory Results WBC 6.10 10^3/uL (3.29-11.43) 09/12/24 11:33 RBC 3.67 10^6/uL (3.85-5.65) L 09/12/24 11:33 Hgb 9.20 g/dL (11.27-16.99) L 09/12/24 11:33 Hct 29.2 % (36-47) L 09/12/24 11:33 MCV 79.6 fl (85-98) L 09/12/24 11:33 MCH 25.1 pg (27-33) L 09/12/24 11:33 MCHC 31.5 g/dL (30-55) 09/12/24 11:33 RDW 18.1 % (12.1-15.1) H 09/12/24 11:33 Plt Count 129 10^3/cmm (157-399) L 09/12/24 11:33 MPV 9.7 fL (7.4-10.4) 09/12/24 11:33 Neut % (Auto) 63.9 % 09/12/24 11:33 Lymph % (Auto) 19.7 % 09/12/24 11:33 [place] % (Auto) 13.9 % 09/12/24 11:33 Eos % (Auto) 1.8 % 09/12/24 11:33 Baso % (Auto) 0.5 % 09/12/24 11:33 Neut # (Auto) 3.90 10^3/uL (1.8-7.7) 09/12/24 11:33 Lymph # (Auto) 1.2 10^3/uL (0.8-4.8) 09/12/24 11:33 [place] # (Auto) 0.9 10^3/uL (0.2-0.9) 09/12/24 11:33 Eos # (Auto) 0.1 10^3/uL (0.0-0.8) 09/12/24 11:33 Baso # (Auto) 0.0 10^3/uL (0.0-0.1) 09/12/24 11:33 Nucleated RBC % (auto) 0 % 09/12/24 11:33 Nucleated RBCs # 0.0 /100WBC 09/12/24 11:33 Differential Comment Yes 09/12/24 13:20 PT 16.30 SECONDS (12.1-14.9) H 09/12/24 11:33 INR 1.23 (0.8-1.2) H 09/12/24 11:33 Sodium 138 mmol/L (136-145) 09/12/24 11:33 Potassium 3.7 mmol/L (3.5-5.1) 09/12/24 11:33 Chloride 98 mmol/L (98-107) 09/12/24 11:33 Carbon Dioxide 23 mmol/L (22-29) 09/12/24 11:33 Anion Gap 20.7 (5-19) H 09/12/24 11:33 BUN 16 mg/dL (8-23) 09/12/24 11:33 Creatinine 1.5 mg/dL (0.5-0.9) H 09/12/24 11:33 GFR Calculation Not Reportable 09/12/24 11:33 Glucose 105 mg/dL (65-115) 09/12/24 11:33 Calculated Osmolality 288 mOsm/kg (285-295) 09/12/24 11:33 Calcium 8.4 mg/dL (8.5-10.5) L 09/12/24 11:33 Total Bilirubin 1.1 mg/dL (0.15-1.2) 09/12/24 11:33 AST 32 U/L (0-32) 09/12/24 11:33 ALT 12 U/L (0-33) 09/12/24 11:33 Alkaline Phosphatase 112 U/L (35-105) H 09/12/24 11:33 Ammonia 75 umol/L (11-51) H 09/12/24 11:33 Total Protein 7.6 g/dL (6.6-8.7) 09/12/24 11:33 Albumin 3.4 g/dL (3.5-5.2) L 09/12/24 11:33 Globulin 4.2 g/dL (1.3-4.6) 09/12/24 11:33 Urine Color Yellow (Yellow) 09/12/24 14:11 Urine Appearance Clear (CLEAR) 09/12/24 14:11 Urine pH 5.5 (5-7) 09/12/24 14:11 Ur Specific [place] 1.007 (1.005-1.030) 09/12/24 14:11 Urine Protein Negative (Negative) 09/12/24 14:11 Urine Glucose (UA) Negative (Normal) 09/12/24 14:11 Urine Ketones Negative (Negative) 09/12/24 14:11 Urine Blood Negative (Negative) 09/12/24 14:11 Urine Nitrate Negative (Negative) 09/12/24 14:11 Urine Bilirubin Negative (Negative) 09/12/24 14:11 Urine Urobilinogen 1.0 mg/dL (Negative) 09/12/24 14:11 Ur Leukocyte Esterase Trace (Negative) A 09/12/24 14:11 Urine RBC 0-2 /hpf (0-2) 09/12/24 14:11 Urine WBC 0-5 /hpf (0-5) 09/12/24 14:11 Ur Squamous Epith Cells 0-5 /hpf (0-5) 09/12/24 14:11 Amorphous Sediment Not Reportable 09/12/24 14:11 Urine Bacteria None seen /hpf (NONE) 09/12/24 14:11 Hyaline Casts 3.71 /lpf 09/12/24 14:11 Fluid Color Pale yellow 09/12/24 13:20 Fluid Appearance Turbid 09/12/24 13:20 Fluid WBC 432 /uL 09/12/24 13:20 Fluid RBC 1.000 10^3/uL 09/12/24 13:20 Fld Polynuclear WBCs # 0.017 09/12/24 13:20 Fld Polynuclear WBCs % 3.900 % 09/12/24 13:20 Fl Mononucl WBCs #(Auto) 0.415 09/12/24 13:20 Fl Mononuclear % Auto 96.100 % 09/12/24 13:20 Fld Crystal Laterality Para 09/12/24 13:20 All radiology interpretation(s) finalized by discharge Discharge Plan Discharge Patient Disposition: Home Clinical Impression: Cirrhosis of liver, Abdominal ascites Condition: Stable Prescriptions: No Action furosemide 20 mg tablet 20 mg PO DAILY triamcinolone acetonide 40 mg/mL suspension 40 mg intra-articular ONCE Qty: 1 0RF lynne thread as directed gabapentin 300 mg capsule 300 mg PO BID PRN (Reason: pain) Qty: 180 3RF lactulose 10 gram/15 mL solution 20 g PO BID Qty: 1500 3RF montelukast 10 mg tablet 10 mg PO DAILY Qty: 90 3RF verapamil 120 mg capsule,ext rel. pellets 24 hr 120 mg PO DAILY Qty: 90 3RF ferrous sulfate 325 mg (65 mg iron) tablet 325 mg PO BID Qty: 180 3RF potassium chloride [K-Tab] 20 mEq tablet extended release 20 meq PO DAILY Qty: 90 3RF (DME) diabetic shoes with 3 inserts 5024 See Rx Instructions .Route .MEDSUPPLY Qty: 1 0RF Rx Instructions: As directed furosemide [Lasix] 40 mg tablet 40 mg PO DAILY Qty: 60 3RF loratadine 10 mg tablet 10 mg PO DAILY Qty: 90 3RF aspirin 81 mg tablet,delayed release (DR/EC) 81 mg PO DAILY Discharge Orders: Discharge ED (Routine); Ordered 09/12/24 Ordered By: Sandeep Brown Referrals: Khris Flores MD [Primary Care Provider, Family Practice] Discharge Diet: Usual diet Discharge Activity: Increase activity as tolerated Patient Instructions: Opioid Safety, Pain Management, Patient Portal & Santhosh Instructions Activity Restrictions/Additional Instructions: [email or web address]. It is very important that you follow up as instructed or that you return to the Emergency Department should you have concerns or if your condition changes or worsens in any way. You were seen in the emergency room with large amount of fluid in the abdomen fluid was drained by paracentesis. Cultures and evaluation of the fluid is being done. Your other labs did not show marked clinical abnormality beyond your known current ankle medical diagnosis. Recommend you follow-up with Dr. Flores next week. Print Language: Bulgarian Coding Level of Care Code ED Building Supplies Salesperson Retail for Karli Galeano
[2024-09-12 11:50] LABS: INR 1.23 (0.8-1.2); Prothrombin Time 16.30 SECONDS (12.1-14.9)
[2024-09-12 11:55] LABS: Alanine Aminotransferase 12 U/L (0-33); Albumin Level 3.4 g/dL (3.5-5.2); Alkaline Phosphatase 112 U/L (35-105); Anion Gap 20.7 (5-19); Aspartate Amino Transferase 32 U/L (0-32); Blood Urea Nitrogen 16 mg/dL (8-23); Calcium 8.4 mg/dL (8.5-10.5); Carbon Dioxide 23 mmol/L (22-29); Chloride 98 mmol/L (98-107); Creatinine Clr Calc Pharmacy 34.0428; Globulin 4.2 g/dL (1.3-4.6); Glucose 105 mg/dL (65-115); Osmolality Calculated 288 mOsm/kg (285-295); Potassium 3.7 mmol/L (3.5-5.1); Sodium 138 mmol/L (136-145); Total Protein 7.6 g/dL (6.6-8.7)
[2024-09-12 12:22] LABS: Ammonia 75 umol/L (11-51)
[2024-09-12 13:32] LABS: Apprearance, Body Fluid TURBID; Color, Body Fluid PALE YELLOW; Fluid Laterality PARA; PATH Referral YES
[2024-09-12 13:42] LABS: Body Fluid Polynuclear #Cells 0.017; Monocytes # Body Fluid 0.415; Mononuclear WBC Body Fluid % 96.100 %; Polynuclear WBC Body Fluid % 3.900 %
--- NOTE | 2024-09-12 14:00 | PC.NURSE ---
there was 4700ml pulled from pt abdomen during paracentesis. catheter removed, no bleeding at site. bandage placed. pt in stable condition at the end of fluid being removed. 4 suction canisters used and one suction tubing.
[2024-09-12 14:37] LABS: Glucose Urine UA Negative (Normal); Nitrate Urine Negative (Negative); Specific Gravity, Urine 1.007 (1.005-1.030)
[2024-09-12 14:42] LABS: Add Urine Microscopic? YES
[2024-09-12 15:10] LABS: Cyto Order Verification No Order
== END 2024-09-12 14:46 | disposition home or self-care (01) ==
PROVIDERS: Emergency Provider Family Medicine; PCP Family Medicine
DX: K74.60 Unspecified cirrhosis of liver (principal); R18.8 Other ascites; Z79.82 Long term (current) use of aspirin; E78.5 Hyperlipidemia, unspecified; E11.9 Type 2 diabetes mellitus without complications; I10 Essential (primary) hypertension; Z85.3 Personal history of malignant neoplasm of breast
CPT/HCPCS: 36415; 49083; 71045; 80053; 80503; 81001; 82140; 85025; 85610; 87070; 87075; 87205; 89050; 99285

== ENCOUNTER 2024-09-18 11:53 | Emergency (ER) | payer MEDICARE, OTHER, SELFPAY ==
[2024-09-18 11:57] VITALS: BP 139/69; PULSE 76; TEMP 36.6; O2SAT 97
--- OUTSIDE RECORDS SUMMARY | 2024-09-18 11:57 | XMS_ITS | Encounter Summary ---
Author Organization [facility] Address [address] [place] [address] Care Team Providers Care City Dispatcher Name Role Phone Roosevelt Valentine MD Primary Care Provider [phone] Encounter Details Date Type Department Care Team (Latest Contact Info) Description 02/05/2002 Outpatient Historical [facility] 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
--- OUTSIDE RECORDS SUMMARY | 2024-09-18 11:57 | XMS_ITS | Encounter Summary ---
Author Organization [facility] Address [address] [place] [address] Care Team Providers Care Implementation Project Manager Name Role Phone Roosevelt Valentine MD Primary Care Provider [phone] Encounter Details Date Type Department Care Team (Latest Contact Info) Description 09/18/2002 Outpatient Historical [facility] [place] [address] [place] [address] [phone] Rah Mendoza MD [address] [place] [phone] Plantar fibromatosis (Primary Dx); HYPERLIPIDEMIA NEC/NOS; AFTERCARE TEAM FOREMAN USE MEDICATN Social History Tobacco Use Types Packs/Day Years Used Date Smoking Tobacco: Never Assessed Comments Unknown Sex and Gender Information Value Date Recorded Sex Assigned at Not on file 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
--- OUTSIDE RECORDS SUMMARY | 2024-09-18 11:57 | XMS_ITS | Encounter Summary ---
Author Organization [facility] Address [address] [place] [address] Care Team Providers Care Ice Sculptor Name Role Phone Roosevelt Valentine MD Primary Care Provider [phone] Encounter Details Date Type Department Care Team (Late st Contact Info) Description 09/18/2002 Outpatient Historical [facility] Medicine [address] [phone] Noelle Saravia MD [address] [place] [address], [address] Social History Tobacco Use Types Packs/Day Years Used Date Smoking Tobacco: Never Assessed Comments Unknown Sex and Gender Information Value Date Recorded Sex Assigned at Not on file 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
--- OUTSIDE RECORDS SUMMARY | 2024-09-18 11:57 | XMS_ITS | Encounter Summary ---
Author Organization [facility] Address [address] [place] [address] Care Team Providers Care Load Checker Name Role Phone Roosevelt Valentine MD Primary Care Provider Encounter Details Date Type Department Care Team (Latest Contact Info) Description 11/02/2001 Outpatient Historical [facility] Medicine [address], [place] [phone] Rah Mendoza MD [address] [place] [phone] SHOULDER REGION DIS NEC (Primary Dx); HYPERLIPIDEMIA NEC/NOS; AFTERCARE NON CLINICAL ADVISOR USE MEDICATN; DERMATITIS NOS Social History Tobacco Use Types Packs/Day Years Used Date Smoking Tobacco: Never Assessed Comments Unknown Sex and Gender Information Value Date Recorded Sex Assigned at Not on file 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
--- OUTSIDE RECORDS SUMMARY | 2024-09-18 11:57 | XMS_ITS | Encounter Summary ---
Author Organization [facility] Address [address] [place] [address] Care Team Providers Care Lap Layer Name Role Phone Roosevelt Valentine MD Primary Care Provider [phone] Encounter Details Date Type Department Care Team (Late st Contact Info) Description 02/06/2002 Outpatient Historical [facility] Medicine [address] [phone] Rah Mendoza MD [address] [place] [phone] Social History Tobacco Use Types Packs/Day Years Used Date Smoking Tobacco: Never Assessed Comments Unknown Sex and Gender Information Value Date Recorded Sex Assigned at Not on file Legal Sex Female 2:53 AM HIM TECH Gender Identity Not on file Sexual Orientation Not on file documented as of this encounter Plan of Treatment Not on file documented as of this encounter Visit Diagnoses Not on filedocumented in this encounter Care Teams Lap Layer Relationship Specialty Start Date End Date Roosevelt Valentine MD PCP - General Family Practice 07/19/15 documented as of this encounter
--- OUTSIDE RECORDS SUMMARY | 2024-09-18 11:57 | XMS_ITS | Continuity of Care Document ---
Author Name [facility] Organization [facility] Care Team Providers Care Investigation Officer Name Role Phone [facility] Unavailable Unavailable Problems Combined list of problems from Department of Defense and Veterans Affairs facilities. It does not include entries that were removed or entered in error. Problem Status Onset Date Problem Type Date of Resolution Comme nts Source Training And Self-Care Skills Inactive 01/25/2013 Condition [facility] Patient Education - Medication Active Condition [facility] Medications Combined list of outpatient medications from [...] INHALATION, TEVA [place], 8.5 g CANISTER Active [id number] 4 2023 8.5 Pharmac y Data Transac tion Service Facilit y ALBUTEROL SULFATE HFA (albuterol sulfate), 90 MCG, HFA AER AD, INHALATION, TEVA [place], 8.5 g CANISTER Active [id number] 4 2023 8.5 Pharmac y Data Transac tion Service Facilit y DOXYCYCLINE MONOHYDRATE (doxycyclin e monohydrate ), 100 MG, CAPSULE, ORAL, ZYDUS PHARMACEU, 50 ea. BOTTLE Active [id number] 4 2023 14 Pharmac y Data Transac tion Service Facilit y FUROSEMIDE (furosemide ), 20 MG, TABLET, ORAL, AVKARE, 1000 ea. BOTTLE Active [id number] 2023 90 Pharmac y Data Transac tion Service Facilit y FUROSEMIDE (furosemide ), 40 MG, TABLET, ORAL, RISING PHARM, 1000 ea. BOTTLE Cancele d [id number] : 2023 0 Pharmac y Data Transac tion Service Facilit y FUROSEMIDE (furosemide ), 40 MG, TABLET, ORAL, RISING PHARM, 1000 ea. BOTTLE Active [id number] 4 2023 3 Pharmac y Data Transac tion Service Facilit y GABAPENTIN (gabapentin ), 300 MG, CAPSULE, ORAL, XLCARE PHARMACE, 270 ea. BOTTLE Active [id number] 2023 90 Pharmac y Data Transac tion Service Facilit y GABAPENTIN (gabapentin ), 300 MG, CAPSULE, ORAL, XLCARE PHARMACE, 270 ea. BOTTLE Cancele d [id number] : 2023 0 Pharmac y Data Transac tion Service Facilit y LORATADINE (LORATADINE ), 10MG, TABLET, ORAL, PERRIGO CO., 300 ea. BOTTLE Active [id number] 4 2023 90 Pharmac y Data Transac tion Service Facilit y MONTELUKAST SODIUM (montelukas t sodium), 10 MG, TABLET, ORAL, XLCARE PHARMACE, 90 ea. BOTTLE Active [id number] 4 2023 90 Pharmac y Data Transac tion Service Facilit y NITROFURANT OIN MONO-MACRO (NITROFURAN TOIN MONOHYD/M-C RYST), 100 MG, CAPSULE, ORAL, ALVOGEN INC, 100 ea. BOTTLE Cancele d [id number] : 2023 0 Pharmac y Data Transac tion Service Facilit y Allergies, Adverse Reactions, Alerts Combined list of allergies from Department of Defense and Veterans Affairs facilities. It does not include entries that were removed or entered in error. Substance Category Reaction Severity Reaction type Status Date Reported Comments Source No Known Allergies Drug allergy (disorder) active 03/19/2007 [place], [place] Immunizations Combined list of available immunizations from the Department of Defense and Veterans Affairs facilities. Immunization Series Date Given Administered By Site Reaction Lot Number CVX Code Drug Sampler And Test Preparer Status Comments Source Influenza, high dose seasonal 2016 SURESH, () Not Given Influenza , high dose seasonal DoD Encounters Combined list of: 1) Encounters from Department of Veterans Affairs facilities going backup to the last 18 months, not all [place] inpatient encounters are included; 2) Encounters from the Department of Defense facilities going backup to 280 months. Location Location Details Encounter Type Encounter Number Reason For Visit Attending Provider ADM Date DC Date Status Disposition [facility] [place] [id number] SELF-CA RE CLASS MADANIDRIS 01/23 [facility] [place] [place] [place] [place] OUTPATIENT [id number] Notes Entered by: AUSTIN ALEJANDRO 23 Jan 2013 1604 ------- ------- ------- ------- -- Self care class BENJAMÍN GONZALEZ 01/23 [facility] Limitations [facility] [place] [place] [place], [place](COVID 19) OUTPATIENT [id number] Notes Entered by: GHISLAINE RUIZ 31 Jul 2019 1057 ------- ------- ------- ------- -- LOUIE JAMES 07/30 [facility] [place] [place] Social History Combined list of available smoking, tobacco, and other social history from Department of Defense and Veterans Affairs facilities. Social History Type Response Date Comment Sour e This section is an empty social history section. DoD
--- OUTSIDE RECORDS SUMMARY | 2024-09-18 11:57 | XMS_ITS | Encounter Summary ---
Author Organization [facility] Address [address] [place] [address] Care Team Providers Care Administrative Project Coordinator Name Role Phone Roosevelt Valentine MD Primary Care Provider Encounter Details Date Type Department Care Team (Late st Contact Info) Description 10/02/2002 Outpatient Historical [facility] Family Medicine [address] [phone] Chele Kirby, SAFETY COUNSELOR [address] [place] [address] Social History Tobacco Use Types Packs/Day Years Used Date Smoking Tobacco: Never Assessed Comments Unknown Sex and Gender Information Value Date Recorded Sex Assigned at Not on file 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
--- OUTSIDE RECORDS SUMMARY | 2024-09-18 11:58 | XMS_ITS | Encounter Summary ---
Author Organization [facility] Address [address] [place] [address] Care Team Providers Care Roller Die Cutting Machine Operator Name Role Phone Roosevelt Valentine MD Primary Care Provider [phone] Encounter Details Date Type Department Care Team (Latest Contact Info) Description 03/10/2000 Outpatient Historical [address] [address] Noelle Saravia MD [address] [place] [address], [address] Pure hypercholesterolem (Primary Dx); Encounter for long-term (current) use of other medications Social History Tobacco Use Types Packs/Day Years Used Date Smoking Tobacco: Never Assessed Comments Unknown Sex and Gender Information Value Date Recorded Sex Assigned at Not on file 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
--- OUTSIDE RECORDS SUMMARY | 2024-09-18 11:58 | XMS_ITS | Encounter Summary ---
Author Organization [facility] Address [address] [place] [address] Care Team Providers Care Hoisting Engine Operator Name Role Phone Roosevelt Valentine MD Primary Care Provider [phone] Encounter Details Date Type Department Care Team (Latest Contact Info) Description 12/08/2000 Outpatient Historical [facility] [place] [address] [place] [phone] Vitreous degeneration (Primary Dx) Social History Tobacco Use Types Packs/Day Years Used Date Smoking Tobacco: Never Assessed Comments Unknown Sex and Gender Information Value Date Recorded Sex Assigned at Not on file Legal Sex Female 2:53 AM CAFE SITE ATTENDANT Gender Identity Not on file Sexual Orientation Not on file documented as of this encounter Plan of Treatment Not on file documented as of this encounter Visit Diagnoses Diagnosis Vitreous degeneration- Primary documented in this encounter Care Teams Hoisting Engine Operator Relationship Specialty Start Date End Date Roosevelt Valentine MD PCP - General Family Practice 07/19/15 documented as of this encounter
--- OUTSIDE RECORDS SUMMARY | 2024-09-18 11:58 | XMS_ITS | Encounter Summary ---
Author Organization [facility] Address [address] [place] [address] Care Team Providers Care Program Host Name Role Phone Roosevelt Valentine MD Primary Care Provider [phone] Encounter Details Date Type Department Care Team (Latest Contact Info) Description 09/02/1999 Outpatient Historical [facility] [address] [address] Rah Mendoza MD [address] [phone] Other and unspecified hyperlipidemia (Primary Dx) Social History Tobacco Use Types Packs/Day Years Used Date Smoking Tobacco: Never Assessed Comments Unknown Sex and Gender Information Value Date Recorded Sex Assigned at Not on file Legal Sex Female 2:53 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
--- OUTSIDE RECORDS SUMMARY | 2024-09-18 11:58 | XMS_ITS | Encounter Summary ---
Author Organization [facility] Address [address] [place] [address] Care Team Providers Care Advisory Software Engineer Name Role Phone Roosevelt Valentine MD Primary Care Provider [phone] Encounter Details Date Type Department Care Team (Latest Contact Info) Description 12/08/2000 Outpatient Historical [facility]- [place] [address] [place] [address] Misael Miramontes MD NO ADDRESS ON FILE Precordial pain (Primary Dx); Other dyspnea and respiratory abnormality; Mixed hyperlipidemia Social History Tobacco Use Types Packs/Day Years Used Date Smoking Tobacco: Never Assessed Comments Unknown Sex and Gender Information Value Date Recorded Sex Assigned at Not on file Legal Sex Female 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
--- OUTSIDE RECORDS SUMMARY | 2024-09-18 11:58 | XMS_ITS | Encounter Summary ---
Author Organization [facility] Address [address] [place] [address] Care Team Providers Care Biomedical Repair Technician Name Role Phone Roosevelt Valentine MD Primary Care Provider [phone] Encounter Details Date Type Department Care Team (Latest Contact Info) Description 02/06/2002 Outpatient Historical [facility] Medicine [address] [phone] Rah Mendoza MD [address] [place] [phone] MASTODYNIA (Primary Dx); SHOULDER REGION DIS NEC; HYPERLIPIDEMIA NEC/NOS; Gynecologic examination Social History Tobacco Use Types Packs/Day Years Used Date Smoking Tobacco: Never Assessed Comments Unknown Sex and Gender Information Value Date Recorded Sex Assigned at Not on file Legal Sex Female 2:53 AM CAVALRY OFFICER Gender Identity Not on file Sexual Orientation Not on file documented as of this encounter Plan of Treatment Not on file documented as of this encounter Visit Diagnoses Diagnosis Mastodynia- Primary Other affections of shoulder region, not elsewhere classified Other and unspecified hyperlipidemia Gynecologic examination Gynecological examination documented in this encounter Care Teams Biomedical Repair Technician Relationship Specialty Start Date End Date Roosevelt Valentine MD PCP - General Family Practice 07/19/15 documented as of this encounter
--- OUTSIDE RECORDS SUMMARY | 2024-09-18 11:58 | XMS_ITS | Encounter Summary ---
Author Organization [facility] Address [address] [place] [address] Care Team Providers Care Post Anesthesia Care Unit Nurse Name Role Phone Roosevelt Valentine MD Primary Care Provider [phone] Encounter Details Date Type Department Care Team (Late st Contact Info) Description 01/15/2001 Outpatient Historical [facility] [address] [place] [phone] Jt Harris MD [address] [place] [address] DERMATITIS NOS (Primary Dx) Social History Tobacco Use Types Packs/Day Years Used Date Smoking Tobacco: Never Assessed Comments Unknown Sex and Gender Information Value Date Recorded Sex Assigned at Not on file Legal Sex Female 2:53 AM FIRE POT OPERATOR Gender Identity Not on file Sexual Orientation Not on file documented as of this encounter Plan of Treatment Not on file documented as of this encounter Visit Diagnoses Diagnosis Contact dermatitis and other eczema, due to unspecified cause- Primary documented in this encounter Care Teams Post Anesthesia Care Unit Nurse Relationship Specialty Start Date End Date Roosevelt Valentine MD PCP - General Family Practice 07/19/15 documented as of this encounter
--- OUTSIDE RECORDS SUMMARY | 2024-09-18 11:58 | XMS_ITS | Clinical Summary ---
Author Organization [facility] Address [address] [place] [address] Phone Care Team Providers Care Power Sweeper Operator Name Role Phone Roosevelt Valentine MD Primary Care Provider [phone] Allergies No known active allergies Medications metFORMIN [...] on file Legal Sex Female 2:53 AM TOWBOAT CAPTAIN Gender Identity Not on file Sexual Orientation [...] 02/19/2003 Insurance MEDICARE PART A AND B [facility] Care Teams Power Sweeper Operator Relationship Specialty Start Date End Date Roosevelt Valentine MD PCP - General Family Practice 07/19/15
--- OUTSIDE RECORDS SUMMARY | 2024-09-18 11:58 | XMS_ITS | Encounter Summary ---
Author Organization [facility] Address [address] [place] [address] Care Team Providers Care Maintenance Of Way Foreman Name Role Phone Roosevelt Valentine MD Primary Care Provider [phone] Encounter Details Date Type Department Care Team (Late st Contact Info) Description 02/06/2002 Outpatient Historical [facility] [address] [address] Social History Tobacco Use Types Packs/Day Years Used Date Smoking Tobacco: Never Assessed Comments Unknown Sex and Gender Information Value Date Recorded Sex Assigned at Not on file Legal Sex Female 2:53 AM CORONARY CARE UNIT NURSE Gender Identity Not on file Sexual Orientation Not on file documented as of this encounter Plan of Treatment Not on file documented as of this encounter Visit Diagnoses Not on filedocumented in this encounter Care Teams Maintenance Of Way Foreman Relationship Specialty Start Date End Date Roosevelt Valentine MD PCP - General Family Practice 07/19/15 documented as of this encounter
--- OUTSIDE RECORDS SUMMARY | 2024-09-18 11:58 | XMS_ITS | Encounter Summary ---
Author Organization [facility] Address [address] [place] [address] Care Team Providers Care Human Services Program Specialist Name Role Phone Roosevelt Valentine MD Primary Care Provider [phone] Encounter Details Date Type Department Care Team (Latest Contact Info) Description 04/17/2002 Outpatient Historical [facility] Rah Mendoza MD [address] [place] [address] BREAST DISORDERS NEC (Primary Dx) Social History Tobacco Use Types Packs/Day Years Used Date Smoking Tobacco: Never Assessed Comments Unknown Sex and Gender Information Value Date Recorded Sex Assigned at Not on file Legal Sex Female 2:53 AM MEDIA OPERATOR Gender Identity Not on file Sexual Orientation Not on file documented as of this encounter Plan of Treatment Not on file documented as of this encounter Visit Diagnoses Diagnosis Other specified disorder of breast- Primary documented in this encounter Care Teams Human Services Program Specialist Relationship Specialty Start Date End Date Roosevelt Valentine MD PCP - General Family Practice 07/19/15 documented as of this encounter
--- OUTSIDE RECORDS SUMMARY | 2024-09-18 11:58 | XMS_ITS | Encounter Summary ---
Author Organization [facility] Address [address] [place] [address] Care Team Providers Care Phthalic Acid Purifier Name Role Phone Roosevelt Valentine MD Primary Care Provider [phone] Encounter Details Date Type Department Care Team (Latest Contact Info) Description 06/09/2000 Outpatient Historical [facility] Medicine [address] [address] Martha Walls MD [address] [place] [phone] Backache, unspecified (Primary Dx); Other malaise and fatigue; Nonspecific abnormal results of liver function study Social History Tobacco Use Types Packs/Day Years Used Date Smoking Tobacco: Never Assessed Comments Unknown Sex and Gender Information Value Date Recorded Sex Assigned at Not on file Legal Sex Female 2:53 AM BUSINESS DEVELOPMENT ASSOCIATE Gender Identity Not on file Sexual Orientation Not on file documented as of this encounter Plan of Treatment Not on file documented as of this encounter Visit Diagnoses Diagnosis Backache, unspecified- Primary Other malaise and fatigue Nonspecific abnormal results of liver function study documented in this encounter Care Teams Phthalic Acid Purifier Relationship Specialty Start Date End Date Roosevelt Valentine MD PCP - General Family Practice 07/19/15 documented as of this encounter
--- OUTSIDE RECORDS SUMMARY | 2024-09-18 11:58 | XMS_ITS | Encounter Summary ---
Author Organization [facility] Address [address] [place] [address] Care Team Providers Care Janitorial Manager Name Role Phone Roosevelt Valentine MD Primary Care Provider [phone] Encounter Details Date Type Department Care Team (Latest Contact Info) Description 12/15/1998 Outpatient Historical [facility] Medicine [place] [address] [address] Rah Mendoza MD [address] [place] [phone] Enthesopathy of unspecified site (Primary Dx); Unspecified asthma(493.90); Actinic keratosis Social History Tobacco Use Types Packs/Day Years Used Date Smoking Tobacco: Never Assessed Comments Unknown Sex and Gender Information Value Date Recorded Sex Assigned at Not on file Legal Sex Female 2:53 AM 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
--- OUTSIDE RECORDS SUMMARY | 2024-09-18 11:58 | XMS_ITS | Encounter Summary ---
Author Organization [facility] Address [address] [place] [address] Care Team Providers Care Steel Wheel Engraver Name Role Phone Roosevelt Valentine MD Primary Care Provider [phone] Encounter Details Date Type Department Care Team (Latest Contact Info) Description 07/06/2001 Outpatient Historical [facility] Medicine [place] [address] [phone] Rah Mendoza MD [address] [place] [phone] HYPERLIPIDEMIA NEC/NOS (Primary Dx); AFTERCARE CONCRETE PIPE MACHINE OPERATOR USE MEDICATN Social History Tobacco Use Types Packs/Day Years Used Date Smoking Tobacco: Never Assessed Comments Unknown Sex and Gender Information Value Date Recorded Sex Assigned at Not on file Legal Sex Female 2:53 AM MAMMAL KEEPER Gender Identity Not on file Sexual Orientation Not on file documented as of this encounter Plan of Treatment Not on file documented as of this encounter Visit Diagnoses Diagnosis Other and unspecified hyperlipidemia- Primary Encounter for long-term (current) use of other medications documented in this encounter Care Teams Steel Wheel Engraver Relationship Specialty Start Date End Date Roosevelt Valentine MD PCP - General Family Practice 07/19/15 documented as of this encounter
--- OUTSIDE RECORDS SUMMARY | 2024-09-18 11:58 | XMS_ITS | Encounter Summary ---
Author Organization [facility] Address [address] [place] [address] Care Team Providers Care Photo Manager Name Role Phone Roosevelt Valentine MD Primary Care Provider [phone] Encounter Details Date Type Department Care Team (Latest Contact Info) Description 06/16/1999 Outpatient Historical [facility] Medicine [address] [phone] Martha Walls MD [address] [place] [phone] Acute pharyngitis (Primary Dx); Urge incontinence; Unspecified asthma(493.90); Gynecologic examination Social History Tobacco Use Types Packs/Day Years Used Date Smoking Tobacco: Never Assessed Comments Unknown Sex and Gender Information Value Date Recorded Sex Assigned at Not on file Legal Sex Female 2:53 AM SURGICAL RESIDENT Gender Identity Not on file Sexual Orientation Not on file documented as of this encounter Plan of Treatment Not on file documented as of this encounter Visit Diagnoses Diagnosis Acute pharyngitis- Primary Urge incontinence Unspecified asthma(493.90) Unspecified asthma Gynecologic examination Gynecological examination documented in this encounter Care Teams Photo Manager Relationship Specialty Start Date End Date Roosevelt Valentine MD PCP - General Family Practice 07/19/15 documented as of this encounter
--- OUTSIDE RECORDS SUMMARY | 2024-09-18 11:58 | XMS_ITS | Encounter Summary ---
Author Organization [facility] Address [address] [place] [address] Care Team Providers Care Program Management Intern Name Role Phone Roosevelt Valentine MD Primary Care Provider Encounter Details Date Type Department Care Team (Latest Contact Info) Description 01/18/1999 Outpatient Historical [facility] Medicine [place] [address] [phone] Rah Mendoza MD [address] [place] [phone] Pure hypercholesterolem (Primary Dx); Dietary surveil/anger control counselor Social History Tobacco Use Types Packs/Day Years Used Date Smoking Tobacco: Never Assessed Comments Unknown Sex and Gender Information Value Date Recorded Sex Assigned at Not on file Legal Sex Female 2:53 AM ZIPPER JOINER Gender Identity Not on file Sexual Orientation Not on file documented as of this encounter Plan of Treatment Not on file documented as of this encounter Visit Diagnoses Diagnosis Pure hypercholesterolem- Primary Pure hypercholesterolemia Dietary surveil/anger control counselor Dietary surveillance and counseling documented in this encounter Care Teams Program Management Intern Relationship Specialty Start Date End Date Roosevelt Valentine MD PCP - General Family Practice 07/19/15 documented as of this encounter
--- OUTSIDE RECORDS SUMMARY | 2024-09-18 11:58 | XMS_ITS | Encounter Summary ---
Author Organization [facility] Address [address] [place] [address] Care Team Providers Care Diabetes Clinical Manager Name Role Phone Roosevelt Valentine MD Primary Care Provider [phone] Encounter Details Date Type Department Care Team (Latest Contact Info) Description 12/11/2000 Outpatient Historical [facility] Medicine [address] [phone] Rah Mendoza MD [address] [place] [phone] Other and unspecified hyperlipidemia (Primary Dx); Chest pain, unspecified; Actinic keratosis Social History Tobacco Use Types Packs/Day Years Used Date Smoking Tobacco: Never Assessed Comments Unknown Sex and Gender Information Value Date Recorded Sex Assigned at Not on file Legal Sex Female 2:53 AM PINION AND WHEEL TRUER Gender Identity Not on file Sexual Orientation Not on file documented as of this encounter Plan of Treatment Not on file documented as of this encounter Visit Diagnoses Diagnosis Other and unspecified hyperlipidemia- Primary Chest pain, unspecified Actinic keratosis documented in this encounter Care Teams Diabetes Clinical Manager Relationship Specialty Start Date End Date Roosevelt Valentine MD PCP - General Family Practice 07/19/15 documented as of this encounter
--- OUTSIDE RECORDS SUMMARY | 2024-09-18 11:58 | XMS_ITS | Encounter Summary ---
Author Organization [facility] Address [address] [place] [address] Care Team Providers Care Third Rigger Name Role Phone Roosevelt Valentine MD Primary Care Provider [phone] Encounter Details Date Type Department Care Team (Latest Contact Info) Description 05/04/1999 Outpatient Historical [facility] Medicine [address] [address] Rah Mendoza MD [address] [phone] Other and unspecified hyperlipidemia (Primary Dx) Social History Tobacco Use Types Packs/Day Years Used Date Smoking Tobacco: Never Assessed Comments Unknown Sex and Gender Information Value Date Recorded Sex Assigned at Not on file Legal Sex Female 2:53 AM TUBE DISPATCHER Gender Identity Not on file Sexual Orientation Not on file documented as of this encounter Plan of Treatment Not on file documented as of this encounter Visit Diagnoses Diagnosis Other and unspecified hyperlipidemia- Primary documented in this encounter Care Teams Third Rigger Relationship Specialty Start Date End Date Roosevelt Valentine MD PCP - General Family Practice 07/19/15 documented as of this encounter
--- OUTSIDE RECORDS SUMMARY | 2024-09-18 11:58 | XMS_ITS | Encounter Summary ---
Author Organization [facility] Address [address] [place] [address] Care Team Providers Care Electric Engine Mechanic Name Role Phone Roosevelt Valentine MD Primary Care Provider [phone] Encounter Details Date Type Department Care Team (Latest Contact Info) Description 02/09/1998 Outpatient Historical [facility] Medicine [address] [phone] Rah Mendoza MD [address] [place] [phone] Actinic keratosis (Primary Dx); Allergy, unspecified not elsewhere classified Social History Tobacco Use Types Packs/Day Years Used Date Smoking Tobacco: Never Assessed Comments Unknown Sex and Gender Information Value Date Recorded Sex Assigned at Not on file Legal Sex Female 2:53 AM CERTIFIED ORTHOPTIST Gender Identity Not on file Sexual Orientation Not on file documented as of this encounter Plan of Treatment Not on file documented as of this encounter Visit Diagnoses Diagnosis Actinic keratosis- Primary Allergy, unspecified not elsewhere classified documented in this encounter Care Teams Electric Engine Mechanic Relationship Specialty Start Date End Date Roosevelt Valentine MD PCP - General Family Practice 07/19/15 documented as of this encounter
--- OUTSIDE RECORDS SUMMARY | 2024-09-18 11:58 | XMS_ITS | Encounter Summary ---
Author Organization [facility] Address [address] [place] [address] Care Team Providers Care Photographic Equipment Inspector Name Role Phone Roosevelt Valentine MD Primary Care Provider [phone] Encounter Details Date Type Department Care Team (Latest Contact Info) Description 11/09/2000 Outpatient Historical [facility] Medicine [address] [phone] Rah Mendoza MD [address] [phone] Chest pain, unspecified (Primary Dx); Other and unspecified hyperlipidemia; Unspecified hearing loss; Rash and other nonspecific skin eruption Social History Tobacco Use Types Packs/Day Years Used Date Smoking Tobacco: Never Assessed Comments Unknown Sex and Gender Information Value Date Recorded Sex Assigned at Not on file Legal Sex Female 2:53 AM SENIOR TECHNICAL SUPPORT ANALYST Gender Identity Not on file Sexual Orientation Not on file documented as of this encounter Plan of Treatment Not on file documented as of this encounter Visit Diagnoses Diagnosis Chest pain, unspecified- Primary Other and unspecified hyperlipidemia Unspecified hearing loss Rash and other nonspecific skin eruption documented in this encounter Care Teams Photographic Equipment Inspector Relationship Specialty Start Date End Date Roosevelt Valentine MD PCP - General Family Practice 07/19/15 documented as of this encounter
--- OUTSIDE RECORDS SUMMARY | 2024-09-18 11:58 | XMS_ITS | Clinical Summary ---
Author Organization [facility] Address [address] [place]: Epic Prelude ADT [place] [address] Care Team Providers Care Cost Analyst Name Role Phone Roosevelt Valentine MD Primary Care Provider [phone] Allergies No known active allergies Medications aspirin [...] on file Legal Sex Female 5:54 AM NEEDLEMAKER Gender Identity Not on file Sexual Orientation [...] A AND B FOR LIFE Care Teams Cost Analyst Relationship Specialty Start Date End Date Roosevelt Valentine MD [address] [place] [address] PCP - General Family Practice 07/19/15
--- OUTSIDE RECORDS SUMMARY | 2024-09-18 11:58 | XMS_ITS | Encounter Summary ---
Author Organization [facility] Address [address] [place] [address] Care Team Providers Care Book Repairer Name Role Phone Roosevelt Valentine MD Primary Care Provider [phone] Encounter Details Date Type Department Care Team (Late st Contact Info) Description 12/08/2000 Outpatient Historical [facility] Dermatology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
--- OUTSIDE RECORDS SUMMARY | 2024-09-18 11:58 | XMS_ITS | Encounter Summary ---
Author Organization [facility] Address [address] [place] [address] Care Team Providers Care Edger Saw Operator Name Role Phone Roosevelt Valentine MD Primary Care Provider [phone] Encounter Details Date Type Department Care Team (Latest Contact Info) Description 01/12/1999 Outpatient Historical [facility] Medicine [address] [phone] Rah Mendoza MD [address] [phone] Other and unspecified hyperlipidemia (Primary Dx) Social History Tobacco Use Types Packs/Day Years Used Date Smoking Tobacco: Never Assessed Comments Unknown Sex and Gender Information Value Date Recorded Sex Assigned at Not on file Legal Sex Female 2:53 AM WIRE ROPE SLING MAKER Gender Identity Not on file Sexual Orientation Not on file documented as of this encounter Plan of Treatment Not on file documented as of this encounter Visit Diagnoses Diagnosis Other and unspecified hyperlipidemia- Primary documented in this encounter Care Teams Edger Saw Operator Relationship Specialty Start Date End Date Roosevelt Valentine MD PCP - General Family Practice 07/19/15 documented as of this encounter
--- OUTSIDE RECORDS SUMMARY | 2024-09-18 11:58 | XMS_ITS | Encounter Summary ---
Author Organization [facility] Address [address] [place] [address] Care Team Providers Care Scrub Nurse Name Role Phone Roosevelt Valentine MD Primary Care Provider [phone] Encounter Details Date Type Department Care Team (Latest Contact Info) Description 05/31/2000 Outpatient Historical [facility] Medicine [address] [phone] Martha Walls MD [address] [place] [phone] Other and unspecified hyperlipidemia (Primary Dx); Nonspecific abnormal results of liver function study Social History Tobacco Use Types Packs/Day Years Used Date Smoking Tobacco: Never Assessed Comments Unknown Sex and Gender Information Value Date Recorded Sex Assigned at Not on file 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
--- OUTSIDE RECORDS SUMMARY | 2024-09-18 11:58 | XMS_ITS | Encounter Summary ---
Author Organization [facility] Address [address] [place] [address] Care Team Providers Care Rubble Placer Name Role Phone Roosevelt Valentine MD Primary Care Provider [phone] Encounter Details Date Type Department Care Team (Latest Contact Info) Description 08/14/2002 Outpatient Historical [address] [address] Noelle Saravia MD [address] [place] [address], [address] UNS ASTHMA WOSTATUS ASTHMATICUS (Primary Dx); HYPERLIPIDEMIA NEC/NOS; Lateral epicondylitis; ACTINIC KERATOSIS Social History Tobacco Use Types Packs/Day Years Used Date Smoking Tobacco: Never Assessed Comments Unknown Sex and Gender Information Value Date Recorded Sex Assigned at Not on file 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
--- OUTSIDE RECORDS SUMMARY | 2024-09-18 11:58 | XMS_ITS | Encounter Summary ---
Author Organization [facility] Address [address] [place] [address] Care Team Providers Care Blood Bank Laboratory Professional Name Role Phone Roosevelt Valentine MD Primary Care Provider [phone] Encounter Details Date Type Department Care Team (Latest Contact Info) Description 04/17/2002 Outpatient Historical [facility] Breast [place] [address] [facility] [address] [place] [address] Sandra Gilbert MD NO ADDRESS ON FILE MAMMOGRAPHIC MICROCALCIFICATION (Primary Dx) Social History Tobacco Use Types Packs/Day Years Used Date Smoking Tobacco: Never Assessed Comments Unknown Sex and Gender Information Value Date Recorded Sex Assigned at Not on file 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
--- OUTSIDE RECORDS SUMMARY | 2024-09-18 11:59 | XMS_ITS | Encounter Summary ---
Author Organization [facility] Address [address] [place] [address] Care Team Providers Care Clerical Support Name Role Phone Roosevelt Valentine MD Primary Care Provider [phone] Encounter Details Date Type Department Care Team (Late st Contact Info) Description 02/19/2003 Outpatient Historical [facility] Family Medicine [address] [address] Chele Kirby, LOCKSTITCH TOPSTITCHER [address] [place] [address] Social History Tobacco Use Types Packs/Day Years Used Date Smoking Tobacco: Never Assessed Comments Unknown Sex and Gender Information Value Date Recorded Sex Assigned at Not on file 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
--- OUTSIDE RECORDS SUMMARY | 2024-09-18 11:59 | XMS_ITS | Encounter Summary ---
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
--- OUTSIDE RECORDS SUMMARY | 2024-09-18 11:59 | XMS_ITS | Encounter Summary ---
Author Organization [facility] Address [address] [place] [address] Care Team Providers Care Hand Mixer Name Role Phone Roosevelt Valentine MD Primary Care Provider [phone] Encounter Details Date Type Department Care Team (Latest Contact Info) Description 02/19/2003 Outpatient Historical [facility] Medicine [place] [address] [phone] Rah Mendoza MD [address] [place] [phone] HYPERLIPIDEMIA NEC/NOS (Primary Dx); AFTERCARE FREELANCE DATA ENTRY USE MEDICATN; UNSPEC CONSTIPATION; Vaccine for influenza Social History Tobacco Use Types Packs/Day Years Used Date Smoking Tobacco: Never Assessed Comments Unknown Sex and Gender Information Value Date Recorded Sex Assigned at Not on file 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
--- OUTSIDE RECORDS SUMMARY | 2024-09-18 11:59 | XMS_ITS | Encounter Summary ---
Author Organization [facility] Address [address] [place] [address] Care Team Providers Care Steamboat Pilot Name Role Phone Roosevelt Valentine MD Primary Care Provider [phone] Encounter Details Date Type Department Care Team (Latest Contact Info) Description 10/16/2002 Outpatient Historical [facility] Medicine [place] [address] [address] Rah Mendoza MD [address] [place] [phone] Plantar fibromatosis (Primary Dx); AFTERCARE CRNA USE MEDICATN Social History Tobacco Use Types Packs/Day Years Used Date Smoking Tobacco: Never Assessed Comments Unknown Sex and Gender Information Value Date Recorded Sex Assigned at Not on file 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
--- OUTSIDE RECORDS SUMMARY | 2024-09-18 11:59 | XMS_ITS | Encounter Summary ---
Author Organization [facility] Address [address] [place] [address] Care Team Providers Care Line Inspector Name Role Phone Roosevelt Valentine MD Primary Care Provider [phone] Encounter Details Date Type Department Care Team (Latest Contact Info) Description 10/02/2002 Outpatient Historical [address] [address] Noelle Saravia MD [address] [place] [address] Plantar fibromatosis (Primary Dx) Social History Tobacco Use Types Packs/Day Years Used Date Smoking Tobacco: Never Assessed Comments Unknown Sex and Gender Information Value Date Recorded Sex Assigned at Not on file 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
--- OUTSIDE RECORDS SUMMARY | 2024-09-18 11:59 | XMS_ITS | Encounter Summary ---
Author Organization [facility] Address [address] [place] [address] Care Team Providers Care Cashier General Name Role Phone Roosevelt Valentine MD Primary Care Provider [phone] Encounter Details Date Type Department Care Team (Late st Contact Info) Description 10/16/2002 Outpatient Historical [facility] Family Medicine [address] [address] Chele Kirby, SMOKING PIPE MAKER [address] [place] [address] Social History Tobacco Use Types Packs/Day Years Used Date Smoking Tobacco: Never Assessed Comments Unknown Sex and Gender Information Value Date Recorded Sex Assigned at Not on file Legal 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
[2024-09-18 12:24] LABS: Hematocrit 30.0 % (36-47); Hemoglobin 9.50 g/dL (11.27-16.99); Mean Corpuscular HGB Conc 31.7 g/dL (30-55); Mean Corpuscular Hemoglobin 24.4 pg (27-33); Mean Corpuscular Volume 76.9 fl (85-98); Nucleated Red Blood Cells % 0 %; Platelet Count 166 10^3/cmm (157-399); Red Blood Count 3.90 10^6/uL (3.85-5.65); White Blood Count 6.05 10^3/uL (3.29-11.43)
--- NOTE | 2024-09-18 12:29 | US_ITS ---
WS: [id number] ULTRASOUND-GUIDED PARACENTESIS CLINICAL INFORMATION: ascites, abdominal pain COMPARISON: None. Procedure Informed consent: The risks, benefits, and alternatives of the procedure were discussed with the patient. Verbal and written consent was obtained. Timeout: A timeout was performed to confirm the correct patient, procedure, and site. Preparation: A suitable skin site was identified. The patient was prepped and draped in usual sterile fashion. Lidocaine 1% was used for local anesthesia. Catheter: 4 German One-step Yueh catheter. Side: RIGHT lower quadrant. Fluid Volume: 2200 ml Color: Clear yellow DISPOSITION: Discarded safely. Complications: None. US/US paracentesis abd w [id number] IMPRESSION: Uncomplicated ultrasound-guided paracentesis. Removal of 2200 cc
[2024-09-18 12:39] LABS: Alanine Aminotransferase 13 U/L (0-33); Albumin Level 3.3 g/dL (3.5-5.2); Alkaline Phosphatase 114 U/L (35-105); Anion Gap 22.2 (5-19); Aspartate Amino Transferase 29 U/L (0-32); Blood Urea Nitrogen 21 mg/dL (8-23); Calcium 8.2 mg/dL (8.5-10.5); Carbon Dioxide 21 mmol/L (22-29); Chloride 93 mmol/L (98-107); Creatinine Clr Calc Pharmacy 31.9867; Globulin 4.1 g/dL (1.3-4.6); Glucose 108 mg/dL (65-115); Lipase 48 U/L (13-60); Osmolality Calculated 280 mOsm/kg (285-295); Potassium 3.2 mmol/L (3.5-5.1); Sodium 133 mmol/L (136-145); Total Protein 7.4 g/dL (6.6-8.7)
[2024-09-18 12:49] LABS: INR 1.17 (0.8-1.2); Partial Thromboplastin Time 28.5 SECONDS (23.9-36.7); Prothrombin Time 15.70 SECONDS (12.1-14.9)
[2024-09-18 13:08] LABS: Glucose Urine UA Negative (Normal); Nitrate Urine Negative (Negative); Specific Gravity, Urine 1.007 (1.005-1.030)
[2024-09-18 13:10] LABS: Add Urine Microscopic? YES
[2024-09-18 15:46] VITALS: BP 140/65; PULSE 69; RESP 16; O2SAT 100
[2024-09-18 16:46] LABS: Appearance, Peritoneal Fluid Turbid (Clear); Color, Peritoneal Fluid Pale Yellow (Pale Yellow); Cyto Order Verification No Order; Pathology Referral Yes
[2024-09-18 16:50] LABS: Mononuclear #, Pertinoneal Fl 0.349 10^3/uL; Mononuclear %, Pertinoneal Fl 94.800 %; Polynuclear # Cells, Perit 0.019 10^3/uL; Polynuclear % Cells,Perit 5.200 %; RBC Pertioneal Fluid 1 10^3/uL; WBC Peritoneal Fluid 368 /uL
--- NOTE | 2024-09-18 17:02 | W.ED.ABDPA2 ---
HPI - Abdominal Pain General: Chief Complaint: Abdominal Pain Stated Complaint: sore / all over pain Time Seen by Provider: 09/18/24 12:02 History of Present Illness: Patient presents to the ED with complaints of abdominal distention due to ascites. 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 The patient reports that the ascites was worse last week, at which time they had a paracentesis performed with removal of 4.7 liters of fluid. The patient states that Dr. Flores, their primary care physician, sent them to the ER last week for the procedure. The patient reports that they were told to return if the fluid started building up again, which it has. The patient denies fever, nausea, or vomiting. They report intermittent constipation for which they take lactulose, though they admit to occasionally missing doses. The patient also notes that when the ascites worsens, they experience decreased kidney function. The patient missed their scheduled appointment with their PCP this morning. Related Data Home Medications ?Medication ?Instructions ?Recorded ?Confirmed aspirin 81 mg tablet,delayed 81 mg PO DAILY 08/14/21 09/12/24 release furosemide 20 mg tablet 20 mg PO DAILY 08/15/22 09/12/24 lynne thread as directed 06/06/24 09/12/24 Previous Rx's ?Medication ?Instructions ?Recorded diabetic shoes with 3 inserts 5514 #1 ea 06/22/23 ferrous sulfate 325 mg (65 mg 325 mg PO BID #180 tabs 06/12/24 iron) tablet gabapentin 300 mg capsule 300 mg PO BID PRN pain #180 caps 06/12/24 lactulose 10 gram/15 mL oral 20 g (30 mL) PO BID #1,500 mL 06/12/24 solution montelukast 10 mg tablet 10 mg PO DAILY #90 tabs 06/12/24 potassium chloride 20 mEq 20 meq PO DAILY #90 tabs 06/12/24 tablet,extended release (K-Tab) verapamil 120 mg 24 hr 120 mg PO DAILY #90 caps 06/12/24 capsule,extended release furosemide 40 mg tablet (Lasix) 40 mg PO DAILY edema #60 tabs 09/12/24 loratadine 10 mg tablet 10 mg PO DAILY #90 tabs 09/12/24 Allergies Allergy/AdvReac Type Severity Reaction Status Date / Time No Known Allergies Allergy Verified 09/18/24 12:00 [facility] PFSH: Medical History (Updated 09/18/24 @ 17:05 by Wicho Damon MD) Cirrhosis of liver Hypokalemia Arthritis of foot, left Elevated serum creatinine Abnormal CT of the abdomen Abdominal bloating Medication management Hx of malignant neoplasm of breast History of gram negative sepsis (08/2021) E. coli urinary tract infection with bacteremia/sepsis Hyperlipidemia Liver cirrhosis Neuropathy GERD (gastroesophageal reflux disease) Type 2 diabetes mellitus Hypertension Asthma Breast cancer Surgical History History of cataract surgery History of colonoscopy 2011 History of removal of Port-a-Cath 03/2017 History of lumpectomy of left breast 09/08/2015 History of hand surgery Right hand surgery and left trigger finger repair History of left mastectomy (09/25/15) Left modified radical mastectomy History of foot surgery History of appendectomy Family History Other CAD (coronary artery disease) Cancer Diabetes Hyperlipidemia Hypertension Lung disease Denies family history of Clotting disorder Dementia Psychiatric illness Chronic kidney disease (CKD) Suicide Anesthesia complication Bleeding disorder Stroke Social History Smoking and tobacco/nicotine status: never used tobacco/nicotine Alcohol intake: never Substance/Drug Use: never Course Vital Signs: Vital signs: Vital Signs Temperature 97.9 F 09/18/24 11:57 Pulse Rate 69 09/18/24 15:46 Respiratory Rate 16 09/18/24 15:46 Blood Pressure 140/65 09/18/24 15:46 Pulse Oximetry 100 09/18/24 15:46 Oxygen Delivery Me thod Room Air 09/18/24 15:46 MDM - Abdominal Pain Medical Decision Making ROS: Constitutional: Denies fever. Gastrointestinal: Reports abdominal distention and pain due to ascites. Reports intermittent constipation. Denies nausea or vomiting. Genitourinary: Reports concerns about kidney function when ascites worsens. Neurological: No reported confusion at this time. All other systems reviewed and negative. MEDICATIONS AND ALLERGIES: Meds: Lactulose (patient reports occasional non-compliance) Allergies: None reported PAST HISTORICAL DATA: PMH: Cirrhosis secondary to fatty liver disease, Renal dysfunction (when ascites worsens) PSH: None reported Social: Denies alcohol use PHYSICAL EXAM: General: Alert, non-toxic appearing, in no apparent distress HEENT: Head normocephalic and atraumatic. Mucous membranes moist. Sclera icteric. Neck: Supple Respiratory: No increased work of breathing, No wheezing Cardiac: Regular rate and rhythm, 2+ pulses in all extremities Abdomen: Distended with tense ascites. Mild, diffuse abdominal tenderness noted. No guarding or rebound tenderness. Neuro: Cranial nerves grossly intact, no focal motor or sensory deficits noted INITIAL IMPRESSION AND PLAN: Given the history and presentation, the primary working diagnosis is recurrent ascites secondary to cirrhosis from fatty liver disease. Additional considerations include hepatic encephalopathy (given history of lactulose use), renal dysfunction, and spontaneous bacterial peritonitis (though patient denies fever). Based on this initial impression I will order: 1. Paracentesis for therapeutic drainage of ascites 2. Basic metabolic panel to assess renal function 3. Complete blood count to evaluate for signs of infection 4. Liver function tests to assess current hepatic status TEST INTERPRETATIONS: No test results were verbalized during this encounter. PROCEDURES: PROCEDURE: Therapeutic Paracentesis Therapeutic paracentesis was performed by radiology. COMPLICATIONS: None PATIENT TOLERANCE: Procedure was well-tolerated FINAL IMPRESSION: Based on all the above, my clinical impression is most compatible with recurrent ascites secondary to cirrhosis from non-alcoholic fatty liver disease. The clinical picture is not currently suggestive of spontaneous bacterial peritonitis, acute hepatic decompensation, or hepatorenal syndrome. Although other conditions were also considered, they were deemed unlikely based on the clinical information available. CLINICAL DISPOSITION: The patient's current condition is stable in my estimation and the most appropriate and indicated disposition at this time is discharge home with outpatient follow-up. RATIONALE: The patient presents with a known history of cirrhosis with recurrent ascites requiring therapeutic paracentesis. The patient has no signs of infection, encephalopathy, or other acute complications of cirrhosis. The patient's symptoms are relieved following the paracentesis procedure. The patient would benefit from scheduled outpatient paracentesis rather than emergency department visits for this chronic condition. The patient is advised to follow up with their primary care physician, Dr. Flores, to arrange for scheduled outpatient paracentesis. RISK STRATIFICATION AND CLINICAL DECISION RULES APPLIED: No formal clinical decision rules were applied in this case as the patient presented with a known diagnosis requiring a specific intervention (therapeutic paracentesis for symptomatic ascites in cirrhosis). CASE SUMMARY: 63-year-old patient with known cirrhosis secondary to fatty liver disease presented to the ED with recurrent ascites one week after previous paracentesis (4.7L removed). Patient reported abdominal discomfort and concerns about kidney function when ascites worsens. Physical exam revealed distended abdomen with tense ascites and mild diffuse tenderness. Therapeutic paracentesis was performed with good relief of symptoms. Patient was counseled on the importance of regular lactulose use to prevent constipation and potential hepatic encephalopathy. Discussed with patient the benefit of scheduled outpatient paracentesis rather than ED visits for this chronic condition. Patient discharged in stable condition with instructions to follow up with PCP Dr. Flores to arrange scheduled outpatient paracentesis. Lab Data I reviewed the patient's lab results. 09/18/24 12:17 09/18/24 12:17 Labs/Radiology: Laboratory Results WBC 6.05 10^3/uL (3.29-11.43) 09/18/24 12:17 RBC 3.90 10^6/uL (3.85-5.65) 09/18/24 12:17 Hgb 9.50 g/dL (11.27-16.99) L 09/18/24 12:17 Hct 30.0 % (36-47) L 09/18/24 12:17 MCV 76.9 fl (85-98) L 09/18/24 12:17 MCH 24.4 pg (27-33) L 09/18/24 12:17 MCHC 31.7 g/dL (30-55) 09/18/24 12:17 RDW 17.7 % (12.1-15.1) H 09/18/24 12:17 Plt Count 166 10^3/cmm (157-399) 09/18/24 12:17 MPV 10.2 fL (7.4-10.4) 09/18/24 12:17 Neut % (Auto) 66.9 % 09/18/24 12:17 Lymph % (Auto) 18.0 % 09/18/24 12:17 [place] % (Auto) 12.4 % 09/18/24 12:17 Eos % (Auto) 1.5 % 09/18/24 12:17 Baso % (Auto) 0.7 % 09/18/24 12:17 Neut # (Auto) 4.05 10^3/uL (1.8-7.7) 09/18/24 12:17 Lymph # (Auto) 1.1 10^3/uL (0.8-4.8) 09/18/24 12:17 [place] # (Auto) 0.8 10^3/uL (0.2-0.9) 09/18/24 12:17 Eos # (Auto) 0.1 10^3/uL (0.0-0.8) 09/18/24 12:17 Baso # (Auto) 0.0 10^3/uL (0.0-0.1) 09/18/24 12:17 Nucleated RBC % (auto) 0 % 09/18/24 12:17 Nucleated RBCs # 0.0 /100WBC 09/18/24 12:17 PT 15.70 SECONDS (12.1-14.9) H 09/18/24 12:17 INR 1.17 (0.8-1.2) 09/18/24 12:17 APTT 28.5 SECONDS (23.9-36.7) 09/18/24 12:17 Sodium 133 mmol/L (136-145) L 09/18/24 12:17 Potassium 3.2 mmol/L (3.5-5.1) L 09/18/24 12:17 Chloride 93 mmol/L (98-107) L 09/18/24 12:17 Carbon Dioxide 21 mmol/L (22-29) L 09/18/24 12:17 Anion Gap 22.2 (5-19) H 09/18/24 12:17 BUN 21 mg/dL (8-23) 09/18/24 12:17 Creatinine 1.5 mg/dL (0.5-0.9) H 09/18/24 12:17 GFR Calculation Not Reportable 09/18/24 12:17 Glucose 108 mg/dL (65-115) 09/18/24 12:17 Calculated Osmolality 280 mOsm/kg (285-295) L 09/18/24 12:17 Calcium 8.2 mg/dL (8.5-10.5) L 09/18/24 12:17 Total Bilirubin 1.1 mg/dL (0.15-1.2) 09/18/24 12:17 AST 29 U/L (0-32) 09/18/24 12:17 ALT 13 U/L (0-33) 09/18/24 12:17 Alkaline Phosphatase 114 U/L (35-105) H 09/18/24 12:17 Total Protein 7.4 g/dL (6.6-8.7) 09/18/24 12:17 Albumin 3.3 g/dL (3.5-5.2) L 09/18/24 12:17 Globulin 4.1 g/dL (1.3-4.6) 09/18/24 12:17 Lipase 48 U/L (13-60) 09/18/24 12:17 Urine Color Yellow (Yellow) 09/18/24 12:56 Urine Appearance Clear (CLEAR) 09/18/24 12:56 Urine pH 5.0 (5-7) 09/18/24 12:56 Ur Specific [place] 1.007 (1.005-1.030) 09/18/24 12:56 Urine Protein Negative (Negative) 09/18/24 12:56 Urine Glucose (UA) Negative (Normal) 09/18/24 12:56 Urine Ketones Negative (Negative) 09/18/24 12:56 Urine Blood Negative (Negative) 09/18/24 12:56 Urine Nitrate Negative (Negative) 09/18/24 12:56 Urine Bilirubin Negative (Negative) 09/18/24 12:56 Urine Urobilinogen 1.0 mg/dL (Negative) 09/18/24 12:56 Ur Leukocyte Esterase Trace (Negative) A 09/18/24 12:56 Urine RBC 0-2 /hpf (0-2) 09/18/24 12:56 Urine WBC 0-5 /hpf (0-5) 09/18/24 12:56 Ur Squamous Epith Cells 0-5 /hpf (0-5) 09/18/24 12:56 Amorphous Sediment Not Reportable 09/18/24 12:56 Urine Bacteria None seen /hpf (NONE) 09/18/24 12:56 Hyaline Casts 6.61 /lpf 09/18/24 12:56 Peritoneal Color Pale yellow (Pale Yellow) 09/18/24 16:28 Peritoneal Appearance Turbid (Clear) 09/18/24 16:28 Peritoneal WBC 368 /uL 09/18/24 16:28 Peritoneal RBC 1 10^3/uL 09/18/24 16:28 Periton Mononu # Auto 0.349 10^3/uL 09/18/24 16:28 Mononuclear WBCs % 94.800 % 09/18/24 16:28 Polynuclear WBCs % 5.200 % 09/18/24 16:28 Perit Polynuc WBCs # 0.019 10^3/uL 09/18/24 16:28 Peritoneal Diff Commnt Yes 09/18/24 16:28 All radiology interpretation(s) finalized by discharge Discharge Plan Discharge Patient Disposition: Home Clinical Impression: Cirrhosis, Ascites Condition: Stable Prescriptions: No Action furosemide 20 mg tablet 20 mg PO DAILY triamcinolone acetonide 40 mg/mL suspension 40 mg intra-articular ONCE Qty: 1 0RF lynne thread as directed gabapentin 300 mg capsule 300 mg PO BID PRN (Reason: pain) Qty: 180 3RF lactulose 10 gram/15 mL solution 20 g PO BID Qty: 1500 3RF montelukast 10 mg tablet 10 mg PO DAILY Qty: 90 3RF verapamil 120 mg capsule,ext rel. pellets 24 hr 120 mg PO DAILY Qty: 90 3RF ferrous sulfate 325 mg (65 mg iron) tablet 325 mg PO BID Qty: 180 3RF potassium chloride [K-Tab] 20 mEq tablet extended release 20 meq PO DAILY Qty: 90 3RF (DME) diabetic shoes with 3 inserts 5514 See Rx Instructions .Route .MEDSUPPLY Qty: 1 0RF Rx Instructions: As directed furosemide [Lasix] 40 mg tablet 40 mg PO DAILY Qty: 60 3RF loratadine 10 mg tablet 10 mg PO DAILY Qty: 90 3RF aspirin 81 mg tablet,delayed release (DR/EC) 81 mg PO DAILY Discharge Orders: Discharge ED (Routine); Ordered 09/18/24 Ordered By: Wicho Damon Referrals: Khris Flores MD [Primary Care Provider, [facility]] Discharge Activity: Resume usual activity Patient Instructions: Opioid Safety, Pain Management, Patient Portal & Santhosh Instructions Activity Restrictions/Additional Instructions: DISCHARGE INSTRUCTIONS: DIAGNOSIS: Ascites due to cirrhosis INSTRUCTIONS: 1. Take all medications as prescribed, especially your lactulose. Missing doses can lead to constipation and confusion. 2. Follow up with Dr. Flores within 1-2 days to schedule regular outpatient paracentesis procedures. 3. Maintain a low-sodium diet (less than 2,000 mg per day) to help reduce fluid buildup. 4. Weigh yourself daily at the same time and keep a record. Call your doctor if you gain more than 2 pounds in a day or 5 pounds in a week. 5. Limit fluid intake as directed by your doctor. RETURN TO THE ER IMMEDIATELY IF YOU EXPERIENCE: - Fever or chills - Severe abdominal pain - Confusion or disorientation - Vomiting blood or material that looks like coffee grounds - Black, tarry stools - Increasing shortness of breath - Severe swelling in your legs or feet - Drainage from the paracentesis site - Redness, warmth, or increasing pain at the paracentesis site Print Language: Cook Islander Coding Level of Care Code ED Solar Process Engineer for Karli Galeano
[2024-09-18 17:10] VITALS: BP 123/57; PULSE 67; RESP 16; O2SAT 98
== END 2024-09-18 17:25 | disposition home or self-care (01) ==
PROVIDERS: Emergency Medicine; Emergency Provider Student in an Organized Health Care Education/Training Program; PCP Family Medicine
DX: K74.60 Unspecified cirrhosis of liver (principal); R18.8 Other ascites; Z79.82 Long term (current) use of aspirin; E11.9 Type 2 diabetes mellitus without complications; I10 Essential (primary) hypertension; Z85.3 Personal history of malignant neoplasm of breast; E78.5 Hyperlipidemia, unspecified
CPT/HCPCS: 49083; 80053; 80503; 81001; 83690; 85025; 85610; 85730; 87070; 87075; 87205; 89050; 99285; J9999

== ENCOUNTER 2024-09-23 09:41 | Emergency (ER) | payer MEDICARE, OTHER, SELFPAY ==
[2024-09-23 09:43] VITALS: BP 162/69; PULSE 88; RESP 18; TEMP 36.5; O2SAT 98
--- OUTSIDE RECORDS SUMMARY | 2024-09-23 09:47 | XMS_ITS | Continuity of Care Document ---
Author Name [facility] Organization [facility] Care Team Providers Care Tetryl Blender Operator Name Role Phone [facility] Unavailable Unavailable Problems Combined list of problems from Department of Defense and Veterans Affairs facilities. It does not include entries that were removed or entered in error. Problem Status Onset Date Problem Type Date of Resolution Comme nts Source Training And Self-Care Skills Inactive 01/25/[address] [facility] Patient Education - Medication Active Condition [facility] Medications Combined list of outpatient medications from [...] INHALATION, TEVA [place], 8.5 g CANISTER Active [id number] 4 2023 8.5 Pharmac y Data Transac tion Service Facilit y ALBUTEROL SULFATE HFA (albuterol sulfate), 90 MCG, HFA AER AD, INHALATION, TEVA [place], 8.5 g CANISTER Active [id number] 4 2023 8.5 Pharmac y Data Transac tion Service Facilit y amLODIPine 5 mg oral tablet amLODIPi ne 5 mg oral tablet Start Date: 06/13/19 Status: Ordered Repeat number: 1 Ordered 2020 No Facilit y Access DOXYCYCLINE MONOHYDRATE (doxycyclin e monohydrate ), 100 MG, CAPSULE, ORAL, ZYDUS PHARMACEU, 50 ea. BOTTLE Active [id number] 4 2023 14 Pharmac y Data Transac tion Service Facilit y FUROSEMIDE (furosemide ), 20 MG, TABLET, ORAL, AVKARE, 1000 ea. BOTTLE Active [id number] 4 2023 90 Pharmac y Data Transac tion Service Facilit y FUROSEMIDE (furosemide ), 40 MG, TABLET, ORAL, RISING PHARM, 1000 ea. BOTTLE Cancele d [id number] : 2023 0 Pharmac y Data Transac tion Service Facilit y FUROSEMIDE (furosemide ), 40 MG, TABLET, ORAL, RISING PHARM, 1000 ea. BOTTLE Active [id number] 2023 3 Pharmac y Data Transac tion Service Facilit y GABAPENTIN (gabapentin ), 300 MG, CAPSULE, ORAL, XLCARE PHARMACE, 270 ea. BOTTLE Active [id number] 4 2023 90 Pharmac y Data Transac tion Service Facilit y LORATADINE (LORATADINE ), 10MG, TABLET, ORAL, PERbigtincanO CO., 300 ea. BOTTLE Active [id number] 4 2023 90 Pharmac y Data Transac tion Service Facilit y MONTELUKAST SODIUM (montelukas t sodium), 10 MG, TABLET, ORAL, XLCARE PHARMACE, 90 ea. BOTTLE Active [id number] 4 2023 90 Pharmac y Data Transac tion Service Facilit y NITROFURANT OIN MONO-MACRO (NITROFURAN TOIN MONOHYD/M-C RYST), 100 MG, CAPSULE, ORAL, ALVOGEN INC, 100 ea. BOTTLE Cancele d [id number] : 2023 0 Pharmac y Data Transac tion Service Facilit y SITagliptin 50 mg oral tablet SITaglip tin 50 mg oral tablet Start Date: 06/26/19 Status: Ordered Repeat number: 1 Ordered 2020 No Facilit y Access triamcinolo ne 0.1% topical ointment triamcin olone 0.1% topical ointment Start Date: 07/26/19 Status: Ordered Repeat number: 1 Ordered 2020 No Facilit y Access verapamil 120 mg/12 hours oral tablet, extended release verapami l 120 mg/12 hours oral tablet, extended release Start Date: 10/15/19 Status: Ordered Repeat number: 1 Ordered 2020 No Facilit y Access verapamil 120 mg/12 hours oral tablet, extended release verapami l 120 mg/12 hours oral tablet, extended release Start Date: 01/24/20 Status: Ordered Repeat number: 1 Ordered 2020 No Facilit y Access Allergies, Adverse Reactions, Alerts Combined list of allergies from Department of Defense and Veterans [facility] facilities. It does not include entries that were removed or entered in error. Substance Category Reaction Severity Reaction type Status Date Reported Comments Source No Known Allergies Drug allergy (disorder) active 8 Gen [place], [place] NO KNOWN ALLERGIES Propensity to adverse reactions to substance Active Unknown Organization Immunizations Combined list of available immunizations from the Department of [facility] and Veterans [facility] facilities. Immunization Series Date Given Administered By Site Reaction Lot Number CVX Code Drug Foot Caster Status Comments Source Influenza, high dose seasonal 2016 SURESH, () Not Given Influenza , high dose seasonal DoD Encounters Combined list of: 1) Encounters from Department of Veterans Affairs facilities going backup to the last 18 months, not all [place] inpatient encounters are included; 2) Encounters from the [facility] of [facility] facilities going backup to 280 months. Location Location Details Encounter Type Encounter Number Reason For Visit Attending Provider ADM Date DC Date Status Disposition Source [place] [place] OUTPATIENT [id number] SELF-CA RE CLASS IDRIS HAGER 01/23 Released w/o Limitations [place] [place] OUTPATIENT [id number] Notes Entered by: AUSTIN ALEJANDRO 23 Jan 2013 1604 ------- ------- ------- ------- -- Self care class BENJAMÍN GONZALEZ 01/23 Released w/o Limitations [place]([facility]) [place]COVID 19[place] OUTPATIENT [id number] Notes Entered by: GHISLAINE RUIZ 31 Jul 2019 1057 ------- ------- ------- ------- -- RTD LOUIE FLORES 07/30 Released w/o Limitations [place](COVI D 19) Procedures Combined list of: 1) Procedures from Department of Veterans Affairs facilities going back up to thelast 18 months, not all VA non-surgical procedures are included; 2) All procedures from the Department of Defense facilities. Procedure Procedure Type Code Date Perfomer Comments Sourc e No data available for this section Ambulatory P harmacy Social History Combined list of available smoking, tobacco, and other social history from Department of Defense and Veterans Affairs facilities. Social History Type Response Date Comment Sourc e Sex Representation Female (finding) 04/27/2020 Unknown Organization Sexual Orientation Ambula tory Pharmacy Gender identity Ambulator y Pharmacy This section is an empty social history section. DoD Assessment and Plan Combined list of future care activities from Department of Defense and Veterans Affairs facilities (e.g., assessment and plan notes, appointments, orders, and referrals). Additional future care activities may be listed in the Plan of Care section. Result Assessment and Plan Date Source Assessment and Plan No data available for this section 09/23/2024 Ambulatory Pharmacy Functional Status Combined list of recent functional and cognitive assessments recorded at Department of Defense and [facility] Affairs ([place]VA Functional [place] Measurement (FIM) Scale: 1 = Total Assistance (Subject = 0% +), 2 = Maximal Assistance (Subject = 25% +), 3 = Moderate Assistance (Subject = 50% +), 4 = Minimal Assistance (Subject = 75% +), 5 = Supervision, 6 = Modified [place] (Device), 7 = Complete [place] (Timely, Safely). Assessment Date/Time Source Assessment Type Assessment Skill Assessment Score Assessment Details No data available for this section
--- OUTSIDE RECORDS SUMMARY | 2024-09-23 09:53 | XMS_ITS | Encounter Summary ---
Author Organization [facility] Address [address] [place] [address] Care Team Providers Care Pediatrician Managing Partner Name Role Phone Roosevelt Valentine MD Primary Care Provider [phone] Encounter Details Date Type Department Care Team (Latest Contact Info) Description 05/31/2000 Outpatient Historical [facility] [address] [id number] Martha Walls MD [address] [place] [id number] Other and unspecified hyperlipidemia (Primary Dx); Nonspecific abnormal results of liver function study Social History Tobacco Use Types Packs/Day Years Used Date Smoking Tobacco: Never Assessed Comments Unknown Sex and Gender Information Value Date Recorded Sex Assigned at Not on file 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
--- OUTSIDE RECORDS SUMMARY | 2024-09-23 09:53 | XMS_ITS | Encounter Summary ---
Author Organization [facility] Address [address] [place] [address] Care Team Providers Care Striper Spray Gun Name Role Phone Roosevelt Valentine MD Primary Care Provider [phone] Encounter Details Date Type Department Care Team (Latest Contact Info) Description 08/14/2002 Outpatient Historical [address] [phone] Noelle Saravia MD [address] [place] [address], [id number] UNS ASTHMA WOSTATUS ASTHMATICUS (Primary Dx); HYPERLIPIDEMIA NEC/NOS; Lateral epicondylitis; ACTINIC KERATOSIS Social History Tobacco Use Types Packs/Day Years Used Date Smoking Tobacco: Never Assessed Comments Unknown Sex and Gender Information Value Date Recorded Sex Assigned at Not on file 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
--- OUTSIDE RECORDS SUMMARY | 2024-09-23 09:53 | XMS_ITS | Encounter Summary ---
Author Organization [facility] Address [address] [place] [address] Care Team Providers Care Post Commander Name Role Phone Roosevelt Valentine MD Primary Care Provider [phone] Encounter Details Date Type Department Care Team (Latest Contact Info) Description 02/09/1998 Outpatient Historical [facility] Medicine [address] [phone] Rah Mendoza MD [address] [place] [phone] Actinic keratosis (Primary Dx); Allergy, unspecified not elsewhere classified Social History Tobacco Use Types Packs/Day Years Used Date Smoking Tobacco: Never Assessed Comments Unknown Sex and Gender Information Value Date Recorded Sex Assigned at Not on file 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
--- OUTSIDE RECORDS SUMMARY | 2024-09-23 09:53 | XMS_ITS | Encounter Summary ---
Author Organization [facility] Address [address] [place] [address] Care Team Providers Care Career Development Associate Name Role Phone Roosevelt Valentine MD Primary Care Provider Encounter Details Date Type Department Care Team (Latest Contact Info) Description 12/08/2000 Outpatient Historical [facility] [place] [address] [place] [phone] Vitreous degeneration (Primary Dx) Social History Tobacco Use Types Packs/Day Years Used Date Smoking Tobacco: Never Assessed Comments Unknown Sex and Gender Information Value Date Recorded Sex Assigned at Not on file Legal Sex Female 2:53 AM INSURANCE UNDERWRITER Gender Identity Not on file Sexual Orientation Not on file documented as of this encounter Plan of Treatment Not on file documented as of this encounter Visit Diagnoses Diagnosis Vitreous degeneration- Primary documented in this encounter Care Teams Career Development Associate Relationship Specialty Start Date End Date Roosevelt Valentine MD PCP - General Family Practice 07/19/15 documented as of this encounter
--- OUTSIDE RECORDS SUMMARY | 2024-09-23 09:53 | XMS_ITS | Encounter Summary ---
Author Organization [facility] Address [address] [place] [address] Care Team Providers Care Customer Solutions Architect Name Role Phone Roosevelt Valentine MD Primary Care Provider [phone] Encounter Details Date Type Department Care Team (Latest Contact Info) Description 01/18/1999 Outpatient Historical [facility] Medicine [place] [address] [phone] Rah Mendoza MD [address] [place] [phone] Pure hypercholesterolem (Primary Dx); Dietary surveil/certified personal finance counselor Social History Tobacco Use Types Packs/Day Years Used Date Smoking Tobacco: Never Assessed Comments Unknown Sex and Gender Information Value Date Recorded Sex Assigned at Not on file Legal Sex Female 2:53 AM TRAUMA COORDINATOR Gender Identity Not on file Sexual Orientation Not on file documented as of this encounter Plan of Treatment Not on file documented as of this encounter Visit Diagnoses Diagnosis Pure hypercholesterolem- Primary Pure hypercholesterolemia Dietary surveil/certified personal finance counselor Dietary surveillance and counseling documented in this encounter Care Teams Customer Solutions Architect Relationship Specialty Start Date End Date Roosevelt Valentine MD PCP - General Family Practice 07/19/15 documented as of this encounter
--- OUTSIDE RECORDS SUMMARY | 2024-09-23 09:53 | XMS_ITS | Encounter Summary ---
Author Organization [facility] Address [address] [place] [address] Care Team Providers Care Correctional Officer Name Role Phone Roosevelt Valentine MD Primary Care Provider [phone] Encounter Details Date Type Department Care Team (Latest Contact Info) Description 12/15/1998 Outpatient Historical [facility] Medicine [place] [address] [phone] Rah Mendoza MD [address] [place] [phone] Enthesopathy of unspecified site (Primary Dx); Unspecified asthma(493.90); Actinic keratosis Social History Tobacco Use Types Packs/Day Years Used Date Smoking Tobacco: Never Assessed Comments Unknown Sex and Gender Information Value Date Recorded Sex Assigned at Not on file Legal Sex Female 2:53 AM PEDIATRIC DENTIST Gender Identity Not on file Sexual Orientation Not on file documented as of this encounter Plan of Treatment Not on file documented as of this encounter Visit Diagnoses Diagnosis Enthesopathy of unspecified site- Primary Unspecified asthma(493.90) Unspecified asthma Actinic keratosis documented in this encounter Care Teams Correctional Officer Relationship Specialty Start Date End Date Roosevelt Valentine MD PCP - General Family Practice 07/19/15 documented as of this encounter
--- OUTSIDE RECORDS SUMMARY | 2024-09-23 09:53 | XMS_ITS | Clinical Summary ---
Author Organization [facility] Address [address] [place] [address] Phone Care Team Providers Care Taxi Cab Driver Name Role Phone Roosevelt Valentine MD Primary Care Provider [phone] Allergies No known active allergies Medications metFORMIN [...] on file Legal Sex Female 2:53 AM SUPERINTENDENT LANDFILL OPERATIONS Gender Identity Not on file Sexual Orientation [...] 02/19/2003 Insurance MEDICARE PART A AND B [facility] Care Teams Taxi Cab Driver Relationship Specialty Start Date End Date Roosevelt Valentine MD PCP - General Family Practice 07/19/15
--- OUTSIDE RECORDS SUMMARY | 2024-09-23 09:53 | XMS_ITS | Encounter Summary ---
Author Organization [facility] Address [address] [place] [address] Care Team Providers Care Java Developer Analyst Name Role Phone Roosevelt Valentine MD Primary Care Provider [phone] Encounter Details Date Type Department Care Team (Latest Contact Info) Description 06/16/1999 Outpatient Historical [facility] Medicine [address] [phone] Martha Walls MD [address] [place] [phone] Acute pharyngitis (Primary Dx); Urge incontinence; Unspecified asthma(493.90); Gynecologic examination Social History Tobacco Use Types Packs/Day Years Used Date Smoking Tobacco: Never Assessed Comments Unknown Sex and Gender Information Value Date Recorded Sex Assigned at Not on file Legal Sex Female 2:53 AM TUBING MILL OPERATOR Gender Identity Not on file Sexual Orientation Not on file documented as of this encounter Plan of Treatment Not on file documented as of this encounter Visit Diagnoses Diagnosis Acute pharyngitis- Primary Urge incontinence Unspecified asthma(493.90) Unspecified asthma Gynecologic examination Gynecological examination documented in this encounter Care Teams Java Developer Analyst Relationship Specialty Start Date End Date Roosevelt Valentine MD PCP - General Family Practice 07/19/15 documented as of this encounter
--- OUTSIDE RECORDS SUMMARY | 2024-09-23 09:53 | XMS_ITS | Encounter Summary ---
Author Organization [facility] Address [address] [place] [address] Care Team Providers Care Turn Operator Name Role Phone Roosevelt Valentine MD Primary Care Provider [phone] Encounter Details Date Type Department Care Team (Late st Contact Info) Description 09/18/2002 Outpatient Historical [facility] Medicine [address] [address] Noelle Saravia MD [address] [place] [address], [address] Social History Tobacco Use Types Packs/Day Years Used Date Smoking Tobacco: Never Assessed Comments Unknown Sex and Gender Information Value Date Recorded Sex Assigned at Not on file Legal Sex Female 2:53 AM APPARATUS ENGINEERING TECHNOLOGIST Gender Identity Not on file Sexual Orientation Not on file documented as of this encounter Plan of Treatment Not on file documented as of this encounter Visit Diagnoses Not on filedocumented in this encounter Care Teams Turn Operator Relationship Specialty Start Date End Date Roosevelt Valentine MD PCP - General Family Practice 07/19/15 documented as of this encounter
--- OUTSIDE RECORDS SUMMARY | 2024-09-23 09:53 | XMS_ITS | Encounter Summary ---
Author Organization [facility] Address [address] [place] [address] Care Team Providers Care B2B Account Executive Name Role Phone Roosevelt Valentine MD Primary Care Provider Encounter Details Date Type Department Care Team (Latest Contact Info) Description 11/09/2000 Outpatient Historical [facility] Medicine [address] [phone] Rah Mendoza MD [address] [phone] Chest pain, unspecified (Primary Dx); Other and unspecified hyperlipidemia; Unspecified hearing loss; Rash and other nonspecific skin eruption Social History Tobacco Use Types Packs/Day Years Used Date Smoking Tobacco: Never Assessed Comments Unknown Sex and Gender Information Value Date Recorded Sex Assigned at Not on file Legal Sex Female 2:53 AM SALVAGE WINDER Gender Identity Not on file Sexual Orientation Not on file documented as of this encounter Plan of Treatment Not on file documented as of this encounter Visit Diagnoses Diagnosis Chest pain, unspecified- Primary Other and unspecified hyperlipidemia Unspecified hearing loss Rash and other nonspecific skin eruption documented in this encounter Care Teams B2B Account Executive Relationship Specialty Start Date End Date Roosevelt Valentine MD PCP - General Family Practice 07/19/15 documented as of this encounter
--- OUTSIDE RECORDS SUMMARY | 2024-09-23 09:53 | XMS_ITS | Encounter Summary ---
Author Organization [facility] Address [address] [place] [address] Care Team Providers Care Minister Helper Name Role Phone Roosevelt Valentine MD Primary Care Provider [phone] Encounter Details Date Type Department Care Team (Latest Contact Info) Description 06/09/2000 Outpatient Historical [facility] Medicine [address] [phone] Martha Walls MD [address] [place] [phone] Backache, unspecified (Primary Dx); Other malaise and fatigue; Nonspecific abnormal results of liver function study Social History Tobacco Use Types Packs/Day Years Used Date Smoking Tobacco: Never Assessed Comments Unknown Sex and Gender Information Value Date Recorded Sex Assigned at Not on file Legal Sex Female 2:53 AM DENTURE MODEL MAKER Gender Identity Not on file Sexual Orientation Not on file documented as of this encounter Plan of Treatment Not on file documented as of this encounter Visit Diagnoses Diagnosis Backache, unspecified- Primary Other malaise and fatigue Nonspecific abnormal results of liver function study documented in this encounter Care Teams Minister Helper Relationship Specialty Start Date End Date Roosevelt Valentine MD PCP - General Family Practice 07/19/15 documented as of this encounter
--- OUTSIDE RECORDS SUMMARY | 2024-09-23 09:53 | XMS_ITS | Encounter Summary ---
Author Organization [facility] Address [address] [place] [address] Care Team Providers Care Superintendent Seed Mill Name Role Phone Roosevelt Valentine MD Primary Care Provider [phone] Encounter Details Date Type Department Care Team (Latest Contact Info) Description 11/02/2001 Outpatient Historical [facility] Medicine [address], [place] [phone] Rah Mendoza MD [address] [place] [phone] SHOULDER REGION DIS NEC (Primary Dx); HYPERLIPIDEMIA NEC/NOS; AFTERCARE SNF USE MEDICATN; DERMATITIS NOS Social History Tobacco Use Types Packs/Day Years Used Date Smoking Tobacco: Never Assessed Comments Unknown Sex and Gender Information Value Date Recorded Sex Assigned at Not on file Legal Sex Female 2:53 AM CEMENT PATCHER Gender Identity Not on file Sexual Orientation [...] cause documented in this encounter Care Teams Superintendent Seed Mill Relationship Specialty Start Date End Date Roosevelt Valentine MD PCP - General Family Practice 07/19/15 documented as of this encounter
--- OUTSIDE RECORDS SUMMARY | 2024-09-23 09:53 | XMS_ITS | Encounter Summary ---
Author Organization [facility] Address [address] [place] [address] Care Team Providers Care Farm Crops Teacher Name Role Phone Roosevelt Valentine MD Primary Care Provider [phone] Encounter Details Date Type Department Care Team (Latest Contact Info) Description 03/10/2000 Outpatient Historical [address] [phone] Noelle Saravia MD [address] [place] [address], [address] Pure hypercholesterolem (Primary Dx); Encounter for long-term (current) use of other medications Social History Tobacco Use Types Packs/Day Years Used Date Smoking Tobacco: Never Assessed Comments Unknown Sex and Gender Information Value Date Recorded Sex Assigned at Not on file Legal Sex Female 2:53 AM BUNGHOLE BORER Gender Identity Not on file Sexual Orientation Not on file documented as of this encounter Plan of Treatment Not on file documented as of this encounter Visit Diagnoses Diagnosis Pure hypercholesterolem- Primary Pure hypercholesterolemia Encounter for long-term (current) use of other medications documented in this encounter Care Teams Farm Crops Teacher Relationship Specialty Start Date End Date Roosevelt Valentine MD PCP - General Family Practice 07/19/15 documented as of this encounter
--- OUTSIDE RECORDS SUMMARY | 2024-09-23 09:53 | XMS_ITS | Encounter Summary ---
Author Organization [facility] Address [address] [place] [address] Care Team Providers Care Wetlands Technician Name Role Phone Roosevelt Valentine MD Primary Care Provider [phone] Encounter Details Date Type Department Care Team (Latest Contact Info) Description 02/06/2002 Outpatient Historical [facility] Medicine [address] [phone] Rah Mendoza MD [address] [place] [phone] MASTODYNIA (Primary Dx); SHOULDER REGION DIS NEC; HYPERLIPIDEMIA NEC/NOS; Gynecologic examination Social History Tobacco Use Types Packs/Day Years Used Date Smoking Tobacco: Never Assessed Comments Unknown Sex and Gender Information Value Date Recorded Sex Assigned at Not on file Legal Sex Female 2:53 AM CONTENT DIRECTOR Gender Identity Not on file Sexual Orientation Not on file documented as of this encounter Plan of Treatment Not on file documented as of this encounter Visit Diagnoses Diagnosis Mastodynia- Primary Other affections of shoulder region, not elsewhere classified Other and unspecified hyperlipidemia Gynecologic examination Gynecological examination documented in this encounter Care Teams Wetlands Technician Relationship Specialty Start Date End Date Roosevelt Valentine MD PCP - General Family Practice 07/19/15 documented as of this encounter
--- OUTSIDE RECORDS SUMMARY | 2024-09-23 09:53 | XMS_ITS | Encounter Summary ---
Author Organization [facility] Address [address] [place] [address] Care Team Providers Care Distribution District Supervisor Name Role Phone Roosevelt Valentine MD Primary Care Provider [phone] Encounter Details Date Type Department Care Team (Late st Contact Info) Description 02/06/2002 Outpatient Historical [facility] Medicine [address] [phone] Rah Mendoza MD [address] [place] [phone] Social History Tobacco Use Types Packs/Day Years Used Date Smoking Tobacco: Never Assessed Comments Unknown Sex and Gender Information Value Date Recorded Sex Assigned at Not on file Legal Sex Female 2:53 AM MANAGER KNOWLEDGE Gender Identity Not on file Sexual Orientation Not on file documented as of this encounter Plan of Treatment Not on file documented as of this encounter Visit Diagnoses Not on filedocumented in this encounter Care Teams Distribution District Supervisor Relationship Specialty Start Date End Date Roosevelt Valentine MD PCP - General Family Practice 07/19/15 documented as of this encounter
--- OUTSIDE RECORDS SUMMARY | 2024-09-23 09:53 | XMS_ITS | Encounter Summary ---
Author Organization [facility] Address [address] [place] [address] Care Team Providers Care It Applications Manager Name Role Phone Roosevelt Valentine MD Primary Care Provider [phone] Encounter Details Date Type Department Care Team (Latest Contact Info) Description 09/18/2002 Outpatient Historical [facility] Medicine [place] [address] [address] Rah Mendoza MD [address] [place] [phone] Plantar fibromatosis (Primary Dx); HYPERLIPIDEMIA NEC/NOS; AFTERCARE SNF USE MEDICATN Social History Tobacco Use Types Packs/Day Years Used Date Smoking Tobacco: Never Assessed Comments Unknown Sex and Gender Information Value Date Recorded Sex Assigned at Not on file Legal Sex Female 2:53 AM DEICER REPAIRER Gender Identity Not on file Sexual Orientation Not on file documented as of this encounter Plan of Treatment Not on file documented as of this encounter Visit Diagnoses Diagnosis Plantar fibromatosis- Primary Plantar fascial fibromatosis Other and unspecified hyperlipidemia Encounter for long-term (current) use of other medications documented in this encounter Care Teams It Applications Manager Relationship Specialty Start Date End Date Roosevelt Valentine MD PCP - General Family Practice 07/19/15 documented as of this encounter
--- OUTSIDE RECORDS SUMMARY | 2024-09-23 09:53 | XMS_ITS | Encounter Summary ---
Author Organization [facility] Address [address] [place] [address] Care Team Providers Care Block Cuber Name Role Phone Roosevelt Valentine MD Primary Care Provider [phone] Encounter Details Date Type Department Care Team (Latest Contact Info) Description 02/05/2002 Outpatient Historical [facility] [address] [place] [address] Lee Melvin MD [address] [place] [address] SCREENING MAMM-MAILG NEOPL-OTHER (Primary Dx) Social History Tobacco Use Types Packs/Day Years Used Date Smoking Tobacco: Never Assessed Comments Unknown Sex and Gender Information Value Date Recorded Sex Assigned at Not on file Legal Sex Female 2:53 AM MARINE ENGINE DRIVER Gender Identity Not on file Sexual Orientation Not on file documented as of this encounter Plan of Treatment Not on file documented as of this encounter Visit Diagnoses Diagnosis Other screening mammogram- Primary documented in this encounter Care Teams Block Cuber Relationship Specialty Start Date End Date Roosevelt Valentine MD PCP - General Family Practice 07/19/15 documented as of this encounter
--- OUTSIDE RECORDS SUMMARY | 2024-09-23 09:53 | XMS_ITS | Encounter Summary ---
Author Organization [facility] Address [address] [place] [address] Care Team Providers Care Line Tender Flakeboard Name Role Phone Roosevelt Valentine MD Primary Care Provider [phone] Encounter Details Date Type Department Care Team (Late st Contact Info) Description 01/15/2001 Outpatient Historical [facility] D[facility]at[facility] [place] [phone] Jt Harris MD [address] [place] [address] DERMATITIS NOS (Primary Dx) Social History Tobacco Use Types Packs/Day Years Used Date Smoking Tobacco: Never Assessed Comments Unknown Sex and Gender Information Value Date Recorded Sex Assigned at Not on file Legal Sex Female 2:53 AM EXPLOITATION ANALYST Gender Identity Not on file Sexual Orientation Not on file documented as of this encounter Plan of Treatment Not on file documented as of this encounter Visit Diagnoses Diagnosis Contact dermatitis and other eczema, due to unspecified cause- Primary documented in this encounter Care Teams Line Tender Flakeboard Relationship Specialty Start Date End Date Roosevelt Valentine MD PCP - General Family Practice 07/19/15 documented as of this encounter
--- OUTSIDE RECORDS SUMMARY | 2024-09-23 09:53 | XMS_ITS | Encounter Summary ---
Author Organization [facility] Address [address] [place] [address] Care Team Providers Care Professor Of Counseling Name Role Phone Roosevelt Valentine MD Primary Care Provider [phone] Encounter Details Date Type Department Care Team (Latest Contact Info) Description 01/12/1999 Outpatient Historical [facility] Medicine [address] [phone] Rah Mendoza MD [address] [phone] Other and unspecified hyperlipidemia (Primary Dx) Social History Tobacco Use Types Packs/Day Years Used Date Smoking Tobacco: Never Assessed Comments Unknown Sex and Gender Information Value Date Recorded Sex Assigned at Not on file Legal Sex Female 2:53 AM DAIRY CATTLE FARMER Gender Identity Not on file Sexual Orientation Not on file documented as of this encounter Plan of Treatment Not on file documented as of this encounter Visit Diagnoses Diagnosis Other and unspecified hyperlipidemia- Primary documented in this encounter Care Teams Professor Of Counseling Relationship Specialty Start Date End Date Roosevelt Valentine MD PCP - General Family Practice 07/19/15 documented as of this encounter
--- OUTSIDE RECORDS SUMMARY | 2024-09-23 09:53 | XMS_ITS | Encounter Summary ---
Author Organization [facility] Address [address] [place] [address] Care Team Providers Care Alarm Service Technician Name Role Phone Roosevelt Valentine MD Primary Care Provider [phone] Encounter Details Date Type Department Care Team (Latest Contact Info) Description 04/17/2002 Outpatient Historical [facility] Rah Mendoza MD [address] [place] [address] BREAST DISORDERS NEC (Primary Dx) Social History Tobacco Use Types Packs/Day Years Used Date Smoking Tobacco: Never Assessed Comments Unknown Sex and Gender Information Value Date Recorded Sex Assigned at Not on file Legal Sex Female 2:53 AM SPA DIRECTOR/FINANCE Gender Identity Not on file Sexual Orientation Not on file documented as of this encounter Plan of Treatment Not on file documented as of this encounter Visit Diagnoses Diagnosis Other specified disorder of breast- Primary documented in this encounter Care Teams Alarm Service Technician Relationship Specialty Start Date End Date Roosevelt Valentine MD PCP - General Family Practice 07/19/15 documented as of this encounter
--- OUTSIDE RECORDS SUMMARY | 2024-09-23 09:53 | XMS_ITS | Encounter Summary ---
Author Organization [facility] Address [address] [place] [address] Care Team Providers Care Biological Sciences Instructor Name Role Phone Roosevelt Valentine MD Primary Care Provider [phone] Encounter Details Date Type Department Care Team (Latest Contact Info) Description 05/04/1999 Outpatient Historical [facility] Medicine [address] [phone] Rah Mendoza MD [address] [phone] Other and unspecified hyperlipidemia (Primary Dx) Social History Tobacco Use Types Packs/Day Years Used Date Smoking Tobacco: Never Assessed Comments Unknown Sex and Gender Information Value Date Recorded Sex Assigned at Not on file Legal Sex Female 2:53 AM BAR STAFF Gender Identity Not on file Sexual Orientation Not on file documented as of this encounter Plan of Treatment Not on file documented as of this encounter Visit Diagnoses Diagnosis Other and unspecified hyperlipidemia- Primary documented in this encounter Care Teams Biological Sciences Instructor Relationship Specialty Start Date End Date Roosevelt Valentine MD PCP - General Family Practice 07/19/15 documented as of this encounter
--- OUTSIDE RECORDS SUMMARY | 2024-09-23 09:53 | XMS_ITS | Encounter Summary ---
Author Organization [facility] Address [address] [place] [address] Care Team Providers Care Car Dispatcher Name Role Phone Roosevelt Valentine MD Primary Care Provider [phone] Encounter Details Date Type Department Care Team (Latest Contact Info) Description 07/06/2001 Outpatient Historical [facility] Medicine [place] [address] [phone] Rah Mendoza MD [address] [place] [phone] HYPERLIPIDEMIA NEC/NOS (Primary Dx); AFTERCARE SKILLED NURSING USE MEDICATN Social History Tobacco Use Types Packs/Day Years Used Date Smoking Tobacco: Never Assessed Comments Unknown Sex and Gender Information Value Date Recorded Sex Assigned at Not on file Legal Sex Female 2:53 AM HOME HEALTH RN Gender Identity Not on file Sexual Orientation Not on file documented as of this encounter Plan of Treatment Not on file documented as of this encounter Visit Diagnoses Diagnosis Other and unspecified hyperlipidemia- Primary Encounter for long-term (current) use of other medications documented in this encounter Care Teams Car Dispatcher Relationship Specialty Start Date End Date Roosevelt Valentine MD PCP - General Family Practice 07/19/15 documented as of this encounter
--- OUTSIDE RECORDS SUMMARY | 2024-09-23 09:53 | XMS_ITS | Encounter Summary ---
Author Organization [facility] Address [address] [place] [address] Care Team Providers Care Flat Optical Element Maker Name Role Phone Roosevelt Valentine MD Primary Care Provider [phone] Encounter Details Date Type Department Care Team (Late st Contact Info) Description 02/06/2002 Outpatient Historical [facility] [address] [address] Social History Tobacco Use Types Packs/Day Years Used Date Smoking Tobacco: Never Assessed Comments Unknown Sex and Gender Information Value Date Recorded Sex Assigned at Not on file Legal Sex Female 2:53 AM SEEING EYE DOG TEACHER Gender Identity Not on file Sexual Orientation Not on file documented as of this encounter Plan of Treatment Not on file documented as of this encounter Visit Diagnoses Not on filedocumented in this encounter Care Teams Flat Optical Element Maker Relationship Specialty Start Date End Date Roosevelt Valentine MD PCP - General Family Practice 07/19/15 documented as of this encounter
--- OUTSIDE RECORDS SUMMARY | 2024-09-23 09:53 | XMS_ITS | Encounter Summary ---
Author Organization [facility] Address [address] [place] [address] Care Team Providers Care Orthopedic Nurse Name Role Phone Roosevelt Valentine MD Primary Care Provider [phone] Encounter Details Date Type Department Care Team (Late st Contact Info) Description 12/08/2000 Outpatient Historical [facility] Dermatology- [address] [place] [phone] Jt Harris MD [address] [place] [address] Contact dermatitis and other eczema, due to unspecified cause (Primary Dx) Social History Tobacco Use Types Packs/Day Years Used Date Smoking Tobacco: Never Assessed Comments Unknown Sex and Gender Information Value Date Recorded Sex Assigned at Not on file Legal Sex Female 2:53 AM SUPERVISOR EPOXY FABRICATION Gender Identity Not on file Sexual Orientation Not on file documented as of this encounter Plan of Treatment Not on file documented as of this encounter Visit Diagnoses Diagnosis Contact dermatitis and other eczema, due to unspecified cause- Primary documented in this encounter Care Teams Orthopedic Nurse Relationship Specialty Start Date End Date Roosevelt Valentine MD PCP - General Family Practice 07/19/15 documented as of this encounter
--- OUTSIDE RECORDS SUMMARY | 2024-09-23 09:53 | XMS_ITS | Encounter Summary ---
Author Organization [facility] Address [address] [place] [address] Care Team Providers Care Fisher Hoop Net Name Role Phone Roosevelt Valentine MD Primary Care Provider [phone] Encounter Details Date Type Department Care Team (Latest Contact Info) Description 12/11/2000 Outpatient Historical [facility] Medicine [place] [address] [phone] Rah Mendoza MD [address] [place] [phone] Other and unspecified hyperlipidemia (Primary Dx); Chest pain, unspecified; Actinic keratosis Social History Tobacco Use Types Packs/Day Years Used Date Smoking Tobacco: Never Assessed Comments Unknown Sex and Gender Information Value Date Recorded Sex Assigned at Not on file Legal Sex Female 2:53 AM DIANETICIST Gender Identity Not on file Sexual Orientation Not on file documented as of this encounter Plan of Treatment Not on file documented as of this encounter Visit Diagnoses Diagnosis Other and unspecified hyperlipidemia- Primary Chest pain, unspecified Actinic keratosis documented in this encounter Care Teams Fisher Hoop Net Relationship Specialty Start Date End Date Roosevelt Valentine MD PCP - General Family Practice 07/19/15 documented as of this encounter
--- OUTSIDE RECORDS SUMMARY | 2024-09-23 09:53 | XMS_ITS | Encounter Summary ---
Author Organization [facility] Address [address] [place] [address] Care Team Providers Care Marketing R[employer] Entertainment Name Role Phone Roosevelt Valentine MD Primary Care Provider [phone] Encounter Details Date Type Department Care Team (Latest Contact Info) Description 09/02/1999 Outpatient Historical [facility] Medicine [address] [address] Rah Mendoza MD [address] [phone] Other and unspecified hyperlipidemia (Primary Dx) Social History Tobacco Use Types Packs/Day Years Used Date Smoking Tobacco: Never Assessed Comments Unknown Sex and Gender Information Value Date Recorded Sex Assigned at Not on file 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
--- OUTSIDE RECORDS SUMMARY | 2024-09-23 09:53 | XMS_ITS | Encounter Summary ---
Author Organization [facility] Address [address] [place] [address] Care Team Providers Care Career Developer Name Role Phone Roosevelt Valentine MD Primary Care Provider [phone] Encounter Details Date Type Department Care Team (Late st Contact Info) Description 10/02/2002 Outpatient Historical [facility] Family Medicine [address] [address] Chele Kirby, SURGICAL ASSISTANT CERTIFIED [address] [place] [address] Social History Tobacco Use Types Packs/Day Years Used Date Smoking Tobacco: Never Assessed Comments Unknown Sex and Gender Information Value Date Recorded Sex Assigned at Not on file Legal Sex Female 2:53 AM INSURANCE CUSTOMER SERVICE SPECIALIST Gender Identity Not on file Sexual Orientation Not on file documented as of this encounter Plan of Treatment Not on file documented as of this encounter Visit Diagnoses Not on filedocumented in this encounter Care Teams Career Developer Relationship Specialty Start Date End Date Roosevelt Valentine MD PCP - General Family Practice 07/19/15 documented as of this encounter
--- OUTSIDE RECORDS SUMMARY | 2024-09-23 09:53 | XMS_ITS | Encounter Summary ---
Author Organization [facility] Address [address] [place] [address] Care Team Providers Care Air Traffic Coordinator Name Role Phone Roosevelt Valentine MD Primary Care Provider [phone] Encounter Details Date Type Department Care Team (Latest Contact Info) Description 12/08/[address] [facility] Cardiology- [place] [address] [place] [address] Misael Miramontes MD NO ADDRESS ON FILE Precordial pain (Primary Dx); Other dyspnea and respiratory abnormality; Mixed hyperlipidemia Social History Tobacco Use Types Packs/Day Years Used Date Smoking Tobacco: Never Assessed Comments Unknown Sex and Gender Information Value Date Recorded Sex Assigned at Not on file Legal Sex Female 2:53 AM HEALTH INSPECTOR FOOD Gender Identity Not on file Sexual Orientation Not on file documented as of this encounter Plan of Treatment Not on file documented as of this encounter Visit Diagnoses Diagnosis Precordial pain- Primary Other dyspnea and respiratory abnormality Mixed hyperlipidemia documented in this encounter Care Teams Air Traffic Coordinator Relationship Specialty Start Date End Date Roosevelt Valentine MD PCP - General Family Practice 07/19/15 documented as of this encounter
--- OUTSIDE RECORDS SUMMARY | 2024-09-23 09:53 | XMS_ITS | Encounter Summary ---
Author Organization [facility] Address [address] [place] [address] Care Team Providers Care Food Or Baggage Handling Rampman Name Role Phone Roosevelt Valentine MD Primary Care Provider [phone] Encounter Details Date Type Department Care Team (Latest Contact Info) Description 04/17/2002 Outpatient Historical [facility] Breast [place] [address] [facility] [address] [place] [address] Sandra Gilbert MD NO ADDRESS ON FILE MAMMOGRAPHIC MICROCALCIFICATION (Primary Dx) Social History Tobacco Use Types Packs/Day Years Used Date Smoking Tobacco: Never Assessed Comments Unknown Sex and Gender Information Value Date Recorded Sex Assigned at Not on file Legal Sex Female 2:53 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
--- OUTSIDE RECORDS SUMMARY | 2024-09-23 09:55 | XMS_ITS | Clinical Summary ---
Author Organization [facility] Address [address] [place]: Epic Prelude ADT [place] [address] Care Team Providers Care Pattern Grader Name Role Phone Roosevelt Valentine MD Primary Care Provider Allergies No known active allergies Medications aspirin [...] on file Legal Sex Female 5:54 AM REAL ESTATE ADMINISTRATOR Gender Identity Not on file Sexual [...] A AND B FOR LIFE Care Teams Pattern Grader Relationship Specialty Start Date End Date Roosevelt Valentine MD [address] [place] [address] PCP - General Family Practice 07/19/15
--- OUTSIDE RECORDS SUMMARY | 2024-09-23 09:55 | XMS_ITS | Encounter Summary ---
Author Organization [facility] Address [address] [place] [address] Care Team Providers Care Medicare Compliance Auditor Name Role Phone Roosevelt Valentine MD Primary Care Provider [phone] Encounter Details Date Type Department Care Team (Late st Contact Info) Description 02/19/2003 Outpatient Historical [facility] Family Medicine [address] [address] Chele Kirby, RESULTS ENGINEER [address] [place] [address] Social History Tobacco Use Types Packs/Day Years Used Date Smoking Tobacco: Never Assessed Comments Unknown Sex and Gender Information Value Date Recorded Sex Assigned at Not on file Legal Sex Female 2:53 AM ACCOUNT PROCESSOR Gender Identity Not on file Sexual Orientation Not on file documented as of this encounter Plan of Treatment Not on file documented as of this encounter Visit Diagnoses Not on filedocumented in this encounter Care Teams Medicare Compliance Auditor Relationship Specialty Start Date End Date Roosevelt Valentine MD PCP - General Family Practice 07/19/15 documented as of this encounter
--- OUTSIDE RECORDS SUMMARY | 2024-09-23 09:55 | XMS_ITS | Encounter Summary ---
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
--- OUTSIDE RECORDS SUMMARY | 2024-09-23 09:55 | XMS_ITS | Encounter Summary ---
Author Organization [facility] Address [address] [place] [address] Care Team Providers Care Raking Machine Operator Name Role Phone Roosevelt Valentine MD Primary Care Provider [phone] Encounter Details Date Type Department Care Team (Latest Contact Info) Description 10/02/2002 Outpatient Historical [address] [address] Noelle Saravia MD [address] [place] [phone] Plantar fibromatosis (Primary Dx) Social History Tobacco Use Types Packs/Day Years Used Date Smoking Tobacco: Never Assessed Comments Unknown Sex and Gender Information Value Date Recorded Sex Assigned at Not on file Legal Sex Female 2:53 AM DAY HABILITATION SUPERVISOR Gender Identity Not on file Sexual Orientation Not on file documented as of this encounter Plan of Treatment Not on file documented as of this encounter Visit Diagnoses Diagnosis Plantar fibromatosis- Primary Plantar fascial fibromatosis documented in this encounter Care Teams Raking Machine Operator Relationship Specialty Start Date End Date Roosevelt Valentine MD PCP - General Family Practice 07/19/15 documented as of this encounter
--- OUTSIDE RECORDS SUMMARY | 2024-09-23 09:55 | XMS_ITS | Encounter Summary ---
Author Organization [facility] Address [address] [place] [address] Care Team Providers Care General Milling Superintendent Name Role Phone Roosevelt Valentine MD Primary Care Provider [phone] Encounter Details Date Type Department Care Team (Latest Contact Info) Description 10/16/2002 Outpatient Historical [facility] Medicine [place] [address], [place] [address] Rah Mendoza MD [address] [place] [phone] Plantar fibromatosis (Primary Dx); AFTERCARE CREDIT REPORTING CLERK USE MEDICATN Social History Tobacco Use Types Packs/Day Years Used Date Smoking Tobacco: Never Assessed Comments Unknown Sex and Gender Information Value Date Recorded Sex Assigned at Not on file Legal Sex Female 2:53 AM TAX ASSOCIATE ATTORNEY Gender Identity Not on file Sexual Orientation Not on file documented as of this encounter Plan of Treatment Not on file documented as of this encounter Visit Diagnoses Diagnosis Plantar fibromatosis- Primary Plantar fascial fibromatosis Encounter for long-term (current) use of other medications documented in this encounter Care Teams General Milling Superintendent Relationship Specialty Start Date End Date Roosevelt Valentine MD PCP - General Family Practice 07/19/15 documented as of this encounter
--- OUTSIDE RECORDS SUMMARY | 2024-09-23 09:55 | XMS_ITS | Encounter Summary ---
Author Organization [facility] Address [address] [place] [address] Care Team Providers Care Block Paver Name Role Phone Roosevelt Valentine MD Primary Care Provider [phone] Encounter Details Date Type Department Care Team (Latest Contact Info) Description 02/19/2003 Outpatient Historical [facility] Medicine [place] [address] [address] Rah Mendoza MD [address] [place] [phone] HYPERLIPIDEMIA NEC/NOS (Primary Dx); AFTERCARE HALFWAY USE MEDICATN; UNSPEC CONSTIPATION; Vaccine for influenza Social History Tobacco Use Types Packs/Day Years Used Date Smoking Tobacco: Never Assessed Comments Unknown Sex and Gender Information Value Date Recorded Sex Assigned at Not on file Legal Sex Female 2:53 AM SENIOR POLICY ASSOCIATE Gender Identity Not on file Sexual Orientation Not on file documented as of this encounter Plan of Treatment Not on file documented as of this encounter Visit Diagnoses Diagnosis Other and unspecified hyperlipidemia- Primary Encounter for long-term (current) use of other medications Unspecified constipation Vaccine for influenza Need for prophylactic vaccination and inoculation against influenza documented in this encounter Care Teams Block Paver Relationship Specialty Start Date End Date Roosevelt Valentine MD PCP - General Family Practice 07/19/15 documented as of this encounter
--- OUTSIDE RECORDS SUMMARY | 2024-09-23 09:55 | XMS_ITS | Encounter Summary ---
Author Organization [facility] Address [address] [place] [address] Care Team Providers Care Dental Mold Maker Name Role Phone Roosevelt Valentine MD Primary Care Provider [phone] Encounter Details Date Type Department Care Team (Late st Contact Info) Description 10/16/2002 Outpatient Historical [facility] Family Medicine [address] [address] Chele Kirby, INSTANT PRINT OPERATOR [address] [place] [address] Social History Tobacco Use Types Packs/Day Years Used Date Smoking Tobacco: Never Assessed Comments Unknown Sex and Gender Information Value Date Recorded Sex Assigned at Not on file Legal 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
[2024-09-23 09:58] LABS: Hematocrit 28.8 % (36-47); Hemoglobin 9.30 g/dL (11.27-16.99); Mean Corpuscular HGB Conc 32.3 g/dL (30-55); Mean Corpuscular Hemoglobin 24.6 pg (27-33); Mean Corpuscular Volume 76.2 fl (85-98); Nucleated Red Blood Cells % 0 %; Platelet Count 136 10^3/cmm (157-399); Red Blood Count 3.78 10^6/uL (3.85-5.65); White Blood Count 7.15 10^3/uL (3.29-11.43)
[2024-09-23 10:15] LABS: Alanine Aminotransferase 19 U/L (0-33); Albumin Level 3.2 g/dL (3.5-5.2); Alkaline Phosphatase 118 U/L (35-105); Anion Gap 20.8 (5-19); Aspartate Amino Transferase 35 U/L (0-32); Blood Urea Nitrogen 31 mg/dL (8-23); Calcium 9.0 mg/dL (8.5-10.5); Carbon Dioxide 21 mmol/L (22-29); Chloride 94 mmol/L (98-107); Creatinine Clr Calc Pharmacy 25.7939; Globulin 4.1 g/dL (1.3-4.6); Glucose 118 mg/dL (65-115); Osmolality Calculated 282 mOsm/kg (285-295); Potassium 3.8 mmol/L (3.5-5.1); Sodium 132 mmol/L (136-145); Total Protein 7.3 g/dL (6.6-8.7)
[2024-09-23 10:19] VITALS: BP 130/72; PULSE 78; O2SAT 97
--- NOTE | 2024-09-23 10:43 | W.ED.FALL ---
HPI - Fall General: Chief Complaint: Fall Stated Complaint: fall - right side pain Time Seen by Provider: 09/23/24 09:44 History of Present Illness: 74-year-old female complains of right side pain. Patient was on the stoop outside of her home she stumbled and fell. She did hit her head as well as left lower ribs as she fell there is no loss consciousness she denies any neck pain. Patient has a history of cirrhosis of the liver reportedly secondary to Pérez. No nausea vomiting or diarrhea. Patient does have significant distention of her abdomen she has been scheduled for a paracentesis later this week Associated symptoms-after fall: Denies abdominal pain, chest pain or neck pain Related Data Home Medications ?Medication ?Instructions ?Recorded ?Confirmed aspirin 81 mg tablet,delayed 81 mg PO DAILY 08/14/21 09/23/24 release lynne thread See Rx Instructions .Route .COMPLEX 06/06/24 09/23/24 atorvastatin 40 mg tablet 40 mg PO DAILY 09/23/24 09/23/24 potassium chloride 20 mEq 20 meq PO DAILY 09/23/24 09/23/24 tablet,extended release Previous Rx's ?Medication ?Instructions ?Recorded diabetic shoes with 3 inserts 5514 #1 ea 06/22/23 gabapentin 300 mg capsule 300 mg PO BID PRN pain #180 caps 06/12/24 lactulose 10 gram/15 mL oral 20 g (30 mL) PO BID #1,500 mL 06/12/24 solution montelukast 10 mg tablet 10 mg PO DAILY #90 tabs 06/12/24 verapamil 120 mg 24 hr 120 mg PO DAILY #90 caps 06/12/24 capsule,extended release furosemide 40 mg tablet (Lasix) 40 mg PO DAILY edema #60 tabs 09/12/24 loratadine 10 mg tablet 10 mg PO DAILY #90 tabs 09/12/24 Allergies Allergy/AdvReac Type Severity Reaction Status Date / Time No Known Allergies Allergy Verified 09/18/24 12:00 Review of Systems Const: Denies: fever(s) or chills Card: Denies: chest pain Resp: Denies: dyspnea GI: Denies: abdominal pain : Denies: dysuria, urinary frequency or urinary urgency Musc: Denies: neck pain or back pain Skin/Breast: Denies: rash PFSH ED PFSH: Medical History (Updated 09/23/24 @ 12:02 by Sandeep Brown DO) Cirrhosis of liver Hypokalemia Arthritis of foot, left Elevated serum creatinine Abnormal CT of the abdomen Abdominal bloating Medication management Hx of malignant neoplasm of breast History of gram negative sepsis (08/2021) E. coli urinary tract infection with bacteremia/sepsis Hyperlipidemia Liver cirrhosis Neuropathy GERD (gastroesophageal reflux disease) Type 2 diabetes mellitus Hypertension Asthma Breast cancer Surgical History History of cataract surgery History of colonoscopy 2011 History of removal of Port-a-Cath 03/2017 History of lumpectomy of left breast 09/08/2015 History of hand surgery Right hand surgery and left trigger finger repair History of left mastectomy (09/25/15) Left modified radical mastectomy History of foot surgery History of appendectomy Family History Other CAD (coronary artery disease) Cancer Diabetes Hyperlipidemia Hypertension Lung disease Denies family history of Clotting disorder Dementia Psychiatric illness Chronic kidney disease (CKD) Suicide Anesthesia complication Bleeding disorder Stroke Social History Smoking and tobacco/nicotine status: never used tobacco/nicotine Alcohol intake: never Substance/Drug Use: never Physical Exam Const: COMMON NORMALS: no acute distress GENERAL APPEARANCE: cooperative and comfortable ORIENTATION/CONSCIOUSNESS: Yes awake, Yes oriented to person, Yes oriented to place and Yes oriented to time HENMT: COMMON NORMALS: normocephalic, atraumatic and hearing grossly normal bilaterally HEAD & SCALP: normocephalic and atraumatic Resp: COMMON NORMALS: normal respiratory effort, No retractions, No use of accessory muscles and clear to auscultation bilaterally AUSCULTATION: clear to auscultation bilaterally Cardio: COMMON NORMALS: regular rate, regular rhythm and No murmurs present (Cardio) RATE: regular rate RHYTHM: regular rhythm GI: INSPECTION: Yes abdominal distension and Yes Fluid wave present AUSCULTATION: Yes normoactive bowel sounds PALPATION: No Tenderness to palpation present (GI) and No Guarding due to palpation present (GI) PERCUSSION: Fluid wave present Extremity: COMMON NORMALS: normal to inspection, capillary refill normal, no clubbing, cyanosis or edema, no calf tenderness and no pedal edema Neuro: SENSORIUM/ORIENTATION: Yes oriented to person, Yes oriented to place and Yes oriented to time Skin: COMMON NORMALS: no rashes or lesions noted GENERAL SKIN EXAM: no rashes or lesions noted Course Vital Signs: Vital signs: Vital Signs Temperature 97.7 F 09/23/24 09:43 Pulse Rate 78 09/23/24 12:16 Respiratory Rate 18 09/23/24 09:43 Blood Pressure 123/61 09/23/24 12:16 Pulse Oximetry 97 09/23/24 12:16 Oxygen Delivery Me thod Room Air 09/23/24 09:43 MDM - Fall Medical Decision Making Imaging negative. Labs consistent with underlying past medical history. No acute changes. Will discharge patient home she will likely need paracentesis later this week with your primary can set up. Lab Data 09/23/24 09:53 09/23/24 09:[address] 09/23/24 10:47 IMPRESSION: 1. No evidence of intracranial hemorrhage or mass effect. 2. No acute intracranial findings. Ribs X-Ray 09/23/24 10:47 IMPRESSION: Presumed old healed rib fractures on the left. No definite acute abnormality. Laboratory Results WBC 7.15 10^3/uL (3.29-11.43) 09/23/24 09:53 RBC 3.78 10^6/uL (3.85-5.65) L 09/23/24 09:53 Hgb 9.30 g/dL (11.27-16.99) L 09/23/24 09:53 Hct 28.8 % (36-47) L 09/23/24 09:53 MCV 76.2 fl (85-98) L 09/23/24 09:53 MCH 24.6 pg (27-33) L 09/23/24 09:53 MCHC 32.3 g/dL (30-55) 09/23/24 09:53 RDW 18.3 % (12.1-15.1) H 09/23/24 09:53 Plt Count 136 10^3/cmm (157-399) L 09/23/24 09:53 MPV 9.9 fL (7.4-10.4) 09/23/24 09:53 Neut % (Auto) 67.8 % 09/23/24 09:53 Lymph % (Auto) 13.1 % 09/23/24 09:53 Gove % (Auto) 17.5 % 09/23/24 09:53 Eos % (Auto) 0.6 % 09/23/24 09:53 Baso % (Auto) 0.6 % 09/23/24 09:53 Neut # (Auto) 4.85 10^3/uL (1.8-7.7) 09/23/24 09:53 Lymph # (Auto) 0.9 10^3/uL (0.8-4.8) 09/23/24 09:53 Gove # (Auto) 1.3 10^3/uL (0.2-0.9) H 09/23/24 09:53 Eos # (Auto) 0.0 10^3/uL (0.0-0.8) 09/23/24 09:53 Baso # (Auto) 0.0 10^3/uL (0.0-0.1) 09/23/24 09:53 Nucleated RBC % (auto) 0 % 09/23/24 09:53 Nucleated RBCs # 0.0 /100WBC 09/23/24 09:53 PT 16.30 SECONDS (12.1-14.9) H 09/23/24 09:53 INR 1.23 (0.8-1.2) H 09/23/24 09:53 Sodium 132 mmol/L (136-145) L 09/23/24 09:53 Potassium 3.8 mmol/L (3.5-5.1) 09/23/24 09:53 Chloride 94 mmol/L (98-107) L 09/23/24 09:53 Carbon Dioxide 21 mmol/L (22-29) L 09/23/24 09:53 Anion Gap 20.8 (5-19) H 09/23/24 09:53 BUN 31 mg/dL (8-23) H 09/23/24 09:53 Creatinine 1.9 mg/dL (0.5-0.9) H 09/23/24 09:53 GFR Calculation Not Reportable 09/23/24 09:53 Glucose 118 mg/dL (65-115) H 09/23/24 09:53 Calculated Osmolality 282 mOsm/kg (285-295) L 09/23/24 09:53 Calcium 9.0 mg/dL (8.5-10.5) 09/23/24 09:53 Total Bilirubin 1.4 mg/dL (0.15-1.2) H 09/23/24 09:53 AST 35 U/L (0-32) H 09/23/24 09:53 ALT 19 U/L (0-33) 09/23/24 09:53 Alkaline Phosphatase 118 U/L (35-105) H 09/23/24 09:53 Ammonia 72 umol/L (11-51) H 09/23/24 11:11 Total Protein 7.3 g/dL (6.6-8.7) 09/23/24 09:53 Albumin 3.2 g/dL (3.5-5.2) L 09/23/24 09:53 Globulin 4.1 g/dL (1.3-4.6) 09/23/24 09:53 Urine Color Yellow (Yellow) 09/23/24 11:35 Urine Appearance Clear (CLEAR) 09/23/24 11:35 Urine pH 5.5 (5-7) 09/23/24 11:35 Ur Specific [place] 1.013 (1.005-1.030) 09/23/24 11:35 Urine Protein Negative (Negative) 09/23/24 11:35 Urine Glucose (UA) Negative (Normal) 09/23/24 11:35 Urine Ketones Negative (Negative) 09/23/24 11:35 Urine Blood Negative (Negative) 09/23/24 11:35 Urine Nitrate Negative (Negative) 09/23/24 11:35 Urine Bilirubin Negative (Negative) 09/23/24 11:35 Urine Urobilinogen 1.0 mg/dL (Negative) 09/23/24 11:35 Ur Leukocyte Esterase Trace (Negative) A 09/23/24 11:35 Urine RBC 0-2 /hpf (0-2) 09/23/24 11:35 Urine WBC 6-10 /hpf (0-5) 09/23/24 11:35 Ur Squamous Epith Cells 6-10 /hpf (0-5) 09/23/24 11:35 Amorphous Sediment Not Reportable 09/23/24 11:35 Urine Bacteria None seen /hpf (NONE) 09/23/24 11:35 Hyaline Casts 7.01 /lpf 09/23/24 11:35 All radiology interpretation(s) finalized by discharge Discharge Plan Discharge Patient Disposition: Home Clinical Impression: Fall, Anemia, Thrombocytopenia Condition: Stable Prescriptions: No Action lynne thread See Rx Instructions .ROUTE .COMPLEX Rx Instructions: as directed gabapentin 300 mg capsule 300 mg PO BID PRN (Reason: pain) Qty: 180 3RF lactulose 10 gram/15 mL solution 20 g PO BID Qty: 1500 3RF montelukast 10 mg tablet 10 mg PO DAILY Qty: 90 3RF verapamil 120 mg capsule,ext rel. pellets 24 hr 120 mg PO DAILY Qty: 90 3RF (DME) diabetic shoes with 3 inserts 5514 See Rx Instructions .Route .MEDSUPPLY Qty: 1 0RF Rx Instructions: As directed furosemide [Lasix] 40 mg tablet 40 mg PO DAILY Qty: 60 3RF loratadine 10 mg tablet 10 mg PO DAILY Qty: 90 3RF aspirin 81 mg tablet,delayed release (DR/EC) 81 mg PO DAILY potassium chloride 20 mEq tablet extended release 20 meq PO DAILY atorvastatin 40 mg tablet 40 mg PO DAILY Discharge Orders: Discharge ED (Routine); Ordered 09/23/24 Ordered By: Sandeep Brown Referrals: Khris Flores MD [Primary Care Provider, Family Practice] Discharge Diet: Usual diet Discharge Activity: Resume usual activity Patient Instructions: Opioid Safety, Pain Management, Patient Portal & Santhosh Instructions Activity Restrictions/Additional Instructions: Thank you for choosing [facility] for your healthcare needs today. It is very important that you follow up as instructed or that you return to the Emergency Department should you have concerns or if your condition changes or worsens in any way. You were seen after a fall. Your labs are as expected given your past medical history. X-rays did not show any acute injury. You will likely be fairly sore the next few days because of the fall. Print Language: Turkish Coding Level of Care Code ED Sw[employer] for Karli Galeano
--- NOTE | 2024-09-23 10:47 | XR_ITS ---
WS: [id number] XR ribs LT mn 3V w CXR1V [id number] REASON FOR EXAM: trauma FINDINGS: No pneumothorax or pleural effusion. There is deformity of the left seventh through the 10th ribs posteriorly. Compared to previous chest x-rays these likely represent old healed fractures. No other significant focal bony abnormality is identified. XR/XR ribs LT mn 3V w CXR1V [id number] IMPRESSION: Presumed old healed rib fractures on the left. No definite acute abnormality.
--- NOTE | 2024-09-23 10:47 | CT_ITS ---
WS: [id number] CT HEAD TECHNIQUE: Noncontrast CT of the head obtained from the skullbase to the vertex. CLINICAL INFORMATION: trauma COMPARISON: None. DLP: 890.[address] scans at [facility] use at least one of these dose optimization techniques: automated exposure control; mA and/or kV adjustment per patient size (includes targeted exams where dose is matched to clinical indication); or iterative reconstruction. FINDINGS: No evidence of intracranial hemorrhage or mass effect. Ventricular system and basal cisterns are patent. Mild small vessel changes with moderate parenchymal volume loss. No extra-axial fluid collections. No evidence of mass or mass effect. Vascular calcification Paranasal sinuses and mastoid air cells are well aerated. .Normal visualized soft tissues. CT/CT head wo con* [id number] IMPRESSION: 1. No evidence of intracranial hemorrhage or mass effect. 2. No acute intracranial findings.
[2024-09-23 10:59] LABS: INR 1.23 (0.8-1.2); Prothrombin Time 16.30 SECONDS (12.1-14.9)
[2024-09-23 11:00] VITALS: BP 93/65; PULSE 73; O2SAT 98
[2024-09-23 11:30] VITALS: BP 140/69; PULSE 72; O2SAT 98
[2024-09-23 11:37] LABS: Ammonia 72 umol/L (11-51)
[2024-09-23 11:58] LABS: Glucose Urine UA Negative (Normal); Nitrate Urine Negative (Negative); Specific Gravity, Urine 1.013 (1.005-1.030)
[2024-09-23 12:03] LABS: Add Urine Microscopic? YES
[2024-09-23 12:16] VITALS: BP 123/61; PULSE 78; O2SAT 97
== END 2024-09-23 12:18 | disposition home or self-care (01) ==
PROVIDERS: Emergency Provider Family Medicine; PCP Family Medicine
DX: D64.9 Anemia, unspecified (principal); D69.6 Thrombocytopenia, unspecified; Z79.82 Long term (current) use of aspirin; W19.XXXA Unspecified fall, initial encounter; E78.5 Hyperlipidemia, unspecified; I10 Essential (primary) hypertension; E11.9 Type 2 diabetes mellitus without complications; Z85.3 Personal history of malignant neoplasm of breast
CPT/HCPCS: 36415; 70450; 71101; 80053; 81001; 82140; 85025; 85610; 99284

== ENCOUNTER 2024-09-26 10:31 | Outpatient (CLI) | payer MEDICARE, OTHER, SELFPAY ==
[2024-09-26 11:02] VITALS: BP 135/80; PULSE 80; RESP 20; TEMP 36.9; O2SAT 98
[2024-09-26 11:03] VITALS: BMI 28.3
--- NOTE | 2024-09-26 12:08 | US_ITS ---
WS: [id number] ULTRASOUND-GUIDED THERAPEUTIC PARACENTESIS Procedure, risks, and complications have been explained to the patient. Consent is obtained. Utilizing aseptic technique and 1% buffered lidocaine, a small dermatome was made through which a 5 [place]i Yueh catheter was inserted. Approximately 4800 ml of clear peritoneal fluid was obtained without difficulty. No complications encountered. US/US paracentesis abd w [id number] IMPRESSION: Uncomplicated paracentesis yielding 4800 ml of peritoneal fluid.
== END 2024-09-26 10:32 | disposition home or self-care (01) ==
PROVIDERS: Radiology Diagnostic Radiology; PCP Family Medicine; Visit Provider Family Medicine
PROC: (CPT 49082; principal; 2024-09-26 12:30)
DX: R00.1 Bradycardia, unspecified (principal); Z79.82 Long term (current) use of aspirin
CPT/HCPCS: 49083; 99213

== ENCOUNTER 2024-10-03 10:08 | Day surgery (SDC) | payer MEDICARE, OTHER, SELFPAY ==
[2024-10-03 10:40] VITALS: BMI 28.3
[2024-10-03 10:49] VITALS: BP 136/73; PULSE 73; RESP 18; TEMP 36.3; O2SAT 99
--- NOTE | 2024-10-03 11:15 | US_ITS ---
WS: [id number] ULTRASOUND-GUIDED PARACENTESIS CLINICAL INFORMATION: ascites COMPARISON: None. Procedure Informed consent: The risks, benefits, and alternatives of the procedure were discussed with the patient. Verbal and written consent was obtained. Timeout: A timeout was performed to confirm the correct patient, procedure, and site. Preparation: A suitable skin site was identified. The patient was prepped and draped in usual sterile fashion. Lidocaine 1% was used for local anesthesia. Catheter: 4 Icelandic One-step Yueh catheter. Side: LEFT lower quadrant. Fluid Volume: 4750 ml Color: Clear yellow DISPOSITION: Discarded safely. Complications: None. Patient disposition: Discharged from the department in stable condition. US/US paracentesis abd w [id number] IMPRESSION: Uncomplicated ultrasound-guided paracentesis. Removal of [id number]
== END 2024-10-03 13:28 | disposition home or self-care (01) ==
LOC: GILAB 10:10
PROVIDERS: Radiology Neuroradiology; PCP Family Medicine; Visit Provider Family Medicine
PROC: (CPT 49082; principal; 2024-10-03 12:30)
DX: R18.8 Other ascites (principal); K74.60 Unspecified cirrhosis of liver
CPT/HCPCS: 49083

== ENCOUNTER 2024-10-03 13:41 | Outpatient (CLI) | payer MEDICARE, OTHER, SELFPAY ==
--- NOTE | 2024-10-03 10:45 | CT_ITS ---
WS: [id number] CT ABDOMEN AND PELVIS NONCONTRAST HISTORY: K74.60 - Unspecified cirrhosis of liver TECHNIQUE: Imaging performed through the abdomen and pelvis. Coronal and sagittal reformats are submitted. All CT scans at [facility] use at least one of these dose optimization techniques: automated exposure control; mA and/or kV adjustment per patient size (includes targeted exams where dose is matched to clinical indication); or iterative reconstruction. DLP: 325.58 mGy.cm COMPARISON: 12/06/2023 Lower thorax: Lung bases are clear. Visualized heart is normal. No hiatal hernia. Liver: Shrunken cirrhotic liver. Nodular surface has progressed since 12/06/2023. Noncontrast study is not sensitive for primary liver lesion. No intrahepatic duct dilatation. Gallbladder: Normal gallbladder. No pericholecystic fluid or cholelithiasis. No gallbladder wall thickening. Pancreas: Diffuse mild pancreatic atrophy. Spleen: Normal. Adrenal glands: Normal. No mass. Right kidney: Mild renal atrophy. No obstruction. Kidney measures 7.4 cm in length. Left kidney: Mild renal atrophy. No obstruction. Kidney measures 7.4 cm in length. Aorta: Mild atherosclerosis aorta. No aneurysm. There is a small amount of ascites throughout the peritoneal cavity. Mild mesenteric edema. Soft tissue anasarca. No free air. GI tract: Normal noncontrast imaging of the stomach, small bowel and colon. No obstruction or wall thickening. Normal appendix. Abdominal wall: Negative. No hernia. Pelvis: Free fluid in the pelvis. Uterus is atrophic. No mass. Urinary bladder is normally distended. Osseous structures: No destructive bone lesions. CT/CT abdomen pelvis wo con [id number] IMPRESSION: 1. Cirrhotic liver. Cirrhotic changes have progressed since 12/06/2023. 2. Small amount of ascites. 3. Soft tissue anasarca in the abdomen and pelvis. 4. No GI tract obstruction. 5. Mild bilateral renal atrophy. No renal obstruction.
== END 2024-10-03 13:42 | disposition home or self-care (01) ==
LOC: RAD 13:41
PROVIDERS: PCP Family Medicine; Visit Provider Family Medicine
DX: K74.60 Unspecified cirrhosis of liver (principal); R18.8 Other ascites; N26.1 Atrophy of kidney (terminal)
CPT/HCPCS: 74176